=== PATIENT | male | born 1960 | race Caucasian/White ===

== ENCOUNTER 2019-11-05 13:27 | Inpatient (IN) | payer OTHER ==
[2019-11-04] MEDS: PANTOPRAZOLE SOD 40 MG TABEC PO SCH (21:40)
[~2019-11-05] VITALS: Ht 185.4 cm; Wt 74.4 kg
[2019-11-05 14:49] LABS: BASOPHILS # (AUTO) 0.1 (0.0-0.1); BASOPHILS % 0.8 % (0.0-1.0); EOSINOPHILS # (AUTO) 0.1 (0.0-0.4); EOSINOPHILS % 1.6 % (0.0-6.0); HEMATOCRIT 21.7 % (38.2-49.6); LYMPHOCYTES # (AUTO) 0.6 (1.0-3.2); LYMPHOCYTES % 9.6 % (18.0-39.1); MEAN CORPUSCULAR HEMOGLOBIN 36.1 pg (28-32); MEAN CORPUSCULAR VOLUME 120.6 fL (81-99); MONOCYTES # (AUTO) 0.8 (0.2-0.8); MONOCYTES % 13.3 % (4.4-11.3); NEUTROPHILS # (AUTO) 4.6 (2.1-6.9); NEUTROPHILS % 73.7 % (38.7-80.0); PLATELET COUNT 81 x10e3/uL (140-360); RED CELL DISTRIBUTION WIDTH 17.4 % (11.7-14.4)
[2019-11-05 14:51] LABS: HEMOGLOBIN 6.5 g/dL (14.0-18.0)
[2019-11-05] MEDS ORDERED: SODIUM CHLORIDE 0.9% 250ML 250 ML IV ONE (15:15)
[2019-11-05 15:17] LABS: ALANINE AMINOTRANSFERASE 33 IU/L (0-55); ALBUMIN 2.8 g/dL (3.5-5.0); ALBUMIN/GLOBULIN RATIO 0.8 (0.8-2.0); ALKALINE PHOSPHATASE 74 IU/L (40-150); ANION GAP 14.9 mmol/L (8-16); BLOOD UREA NITROGEN 26 mg/dL (7-26); BUN/CREATININE RATIO 24 (6-25); CALCIUM 8.4 mg/dL (8.4-10.2); CARBON DIOXIDE 18 mmol/L (22-29); CHLORIDE 102 mmol/L (98-107); CREATININE, SERUM 1.09 mg/dL (0.72-1.25); EST GLOMERULAR FILTRATION RATE > 60 ML/MIN (60-); GLUCOSE 110 mg/dL (74-118); POTASSIUM 3.9 mmol/L (3.5-5.1); SODIUM 131 mmol/L (136-145)
--- NOTE | 2019-11-05 15:22 | Emergency Department Note ---
History of Present Illnes History of Present Illness Chief Complaint: General Medicine Complaints History of Present Illness This is a 59 year old male . SENT HER EFOR LOW HEMOGLOBIN, DENIES PAIN OR ANY OTHER COMPLAINTS. 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 Any updates have been documented here. (ELISABETH STARK NP) Past Medical History Recent Fever: No Clinical Suspicion of Infectio: No New/Unexplained Change in Ment: No Past Medical History: Asthma, Liver Disease Other Medical History: GOUT Past Surgical History: Back Surgery (ELISABETH STARK NP) Social History Smoking Cessation: Never Smoker Alcohol Use: None Any Illegal Drug Use: No TB Exposure/Symptoms: No Physically hurt or threatened: No (ELISABETH STARK NP) Family History Family history of heart diseas: No (ELISABETH STARK NP) Other Any Pre-Existing Lines (PICC,: No (ELISABETH STARK NP) Review of Systems Review of Systems Constitutional: no symptoms EENTM: no symptoms Cardiovascular: no symptoms Respiratory: no symptoms Gastrointestinal: no symptoms Genitourinary: no symptoms Musculoskeletal: no symptoms Neurological: no symptoms Psychological: no symptoms Endocrine: no symptoms Hematological/Lymphatic: no symptoms Review of other systems All other systems reviewed and negative. (ELISABETH STARK NP) Physical Exam Related Data Allergies: Coded Allergies: No Known Allergies (Unverified , 11/05/19) Triage Vital Signs Vital Signs Date Time Temp Pulse Resp B/P (MAP) Pulse Ox O2 Delivery O2 Flow Rate FiO2 11/05/19 13:58 99.1 79 20 139/70 93 Vital signs reviewed: Yes (ELISABETH STARK NP) Physical Exam CONSTITUTIONAL Constitutional: well-developed HENT HENT: normocephalic, atraumatic HENT L/R: left ext ear normal, right ext ear normal EYES Eyes: conjunctivae normal, EOM normal NECK Neck: ROM normal PULMONARY Pulmonary: effort normal, breath sounds normal CARDIOVASCULAR Cardiovascular: regular rhythm, irregular rhythm GASTROINTESTINAL Abdominal: soft, nontender GENITOURINARY Genitourinary: exam deferred SKIN Skin: warm, dry MUSCULOSKELETAL Musculoskeletal: ROM normal NEUROLOGICAL Neurological: alert, oriented x 3 PSYCHOLOGICAL Psychological: mood/affect normal (ELISABETH STARK NP) Results Laboratory Laboratory Laboratory Tests Test 11/05/19 13:30 White Blood Count 6.24 x10e3/uL (4.8-10.8) Red Blood Count 1.80 x10e6/uL (4.3-5.7) Hemoglobin 6.5 g/dL (14.0-18.0) Hematocrit 21.7 % (38.2-49.6) Mean Corpuscular Volume 120.6 fL (81-99) Mean Corpuscular Hemoglobin 36.1 pg (28-32) Mean Corpuscular Hemoglobin Concent 30.0 g/dL (31-35) Red Cell Distribution Width 17.4 % (11.7-14.4) Platelet Count 81 x10e3/uL (140-360) Neutrophils (%) (Auto) 73.7 % (38.7-80.0) Lymphocytes (%) (Auto) 9.6 % (18.0-39.1) Monocytes (%) (Auto) 13.3 % (4.4-11.3) Eosinophils (%) (Auto) 1.6 % (0.0-6.0) Basophils (%) (Auto) 0.8 % (0.0-1.0) Neutrophils # (Auto) 4.6 (2.1-6.9) Lymphocytes # (Auto) 0.6 (1.0-3.2) Monocytes # (Auto) 0.8 (0.2-0.8) Eosinophils # (Auto) 0.1 (0.0-0.4) Basophils # (Auto) 0.1 (0.0-0.1) Absolute Immature Granulocyte (auto 0.06 x10e3/uL (0-0.1) Sodium Level 131 mmol/L (136-145) Potassium Level 3.9 mmol/L (3.5-5.1) Chloride Level 102 mmol/L (98-107) Carbon Dioxide Level 18 mmol/L (22-29) Anion Gap 14.9 mmol/L (8-16) Blood Urea Nitrogen 26 mg/dL (7-26) Creatinine 1.09 mg/dL (0.72-1.25) Estimat Glomerular Filtration Rate > 60 ML/MIN (60-) BUN/Creatinine Ratio 24 (6-25) Glucose Level 110 mg/dL (74-118) Calcium Level 8.4 mg/dL (8.4-10.2) Total Bilirubin 5.4 mg/dL (0.2-1.2) Aspartate Amino Transf (AST/SGOT) 90 IU/L (5-34) Alanine Aminotransferase (ALT/SGPT) 33 IU/L (0-55) Alkaline Phosphatase 74 IU/L (40-150) Total Protein 6.5 g/dL (6.5-8.1) Albumin 2.8 g/dL (3.5-5.0) Globulin 3.7 g/dL (2.3-3.5) Albumin/Globulin Ratio 0.8 (0.8-2.0) Laboratory Tests Test 11/05/19 13:30 White Blood Count 6.24 x10e3/uL (4.8-10.8) Red Blood Count 1.80 x10e6/uL (4.3-5.7) Hemoglobin 6.5 g/dL (14.0-18.0) Hematocrit 21.7 % (38.2-49.6) Mean Corpuscular Volume 120.6 fL (81-99) Mean Corpuscular Hemoglobin 36.1 pg (28-32) Mean Corpuscular Hemoglobin Concent 30.0 g/dL (31-35) Red Cell Distribution Width 17.4 % (11.7-14.4) Platelet Count 81 x10e3/uL (140-360) Neutrophils (%) (Auto) 73.7 % (38.7-80.0) Lymphocytes (%) (Auto) 9.6 % (18.0-39.1) Monocytes (%) (Auto) 13.3 % (4.4-11.3) Eosinophils (%) (Auto) 1.6 % (0.0-6.0) Basophils (%) (Auto) 0.8 % (0.0-1.0) Neutrophils # (Auto) 4.6 (2.1-6.9) Lymphocytes # (Auto) 0.6 (1.0-3.2) Monocytes # (Auto) 0.8 (0.2-0.8) Eosinophils # (Auto) 0.1 (0.0-0.4) Basophils # (Auto) 0.1 (0.0-0.1) Absolute Immature Granulocyte (auto 0.06 x10e3/uL (0-0.1) Lab results reviewed: Yes (ELISABETH STARK NP) Critical Care Time Subsequent provider I assumed direction of critical care for this patient from another provider of my specialty. (ELISABETH STARK NP) Assessment & Plan Assessment & Plan Problems: (1) Anemia Assessment & Plan Dr Moscoso in eval pt status - discussed lab results plan of care and need for admit Dr Moscoso spoke w/ Dr Scott will admit (ELISABETH STARK NP) Depart Disposition: ADMITTED Last Vital Signs Date Time Temp Pulse Resp B/P (MAP) Pulse Ox O2 Delivery O2 Flow Rate FiO2 11/05/19 13:58 99.1 79 20 139/70 93 (ELISABETH STARK NP) Attestation Provider Attestation The patient's history, exam findings, diagnostics, and a summary of any interventions or procedures was reviewed in detail with our RENITA. I personally interviewed and examined the patient, and I have reviewed and agree with the HPI andexam. My personal exam shows age appropriate male, dry mucosa and pale skin. Pt with symptomatic anemia.I confirm the diagnosis as documented by the RENITA. I have reviewed and agree with the care plan articulated in the disposition section. (CARLOS MOSCOSO DO) ELISABETH STAKR NP November 05, 2019 14:10 CARLOS MOSCOSO DO November 05, 2019 15:22
[2019-11-05 17:58] VITALS: BP 134/56
[2019-11-05 18:43] VITALS: BP 134/56
[2019-11-05 18:44] VITALS: BP 134/56
[2019-11-05 18:45] VITALS: BP 134/56
[2019-11-05] MEDS ORDERED: HYDRALAZINE HCL 20 MG/ML VIAL IV PRN (19:00)
[2019-11-05] MEDS ORDERED: ACETAMINOPHEN 325 MG TAB PO PRN (19:00)
[2019-11-05] MEDS ORDERED: ONDANSETRON HCL INJ 2MG/ML 2ML 2 MG/ML VIAL IV PRN (19:00)
--- NOTE | 2019-11-05 19:30 | NUR ---
rECEIVED PT IN BED AWAKE A/O X4. NO C/O NO S/SX OF DISTRESS NOTED. PT ANTICIPATE BLOOD TRANSFUSION THISNSHIFT. BED IN LOW POSITION, CALL LIGHT AND PERSONAL ITEMS WITHIN REACH. WILL CONT TO MON
[2019-11-05 20:07] VITALS: BP 137/64
[2019-11-05 21:00] VITALS: BP 137/64
--- NOTE | 2019-11-05 22:09 | NUR ---
PT VSS. BLOOD TO START PT VERBALIZE S/SX TO REPORT DURING TRANSFUSION. NO S/SX DISTRESS NOTED
[2019-11-06] VITALS (11 sets, daily range): BP systolic 116–143; BP diastolic 51–78
--- NOTE | 2019-11-06 00:31 | History and Physical ---
PRIMARY CARE PHYSICIAN: Dr. Mitul Salinas. CHIEF COMPLAINT: Tired. HISTORY OF PRESENT ILLNESS: Mr. Lemus is a 59-year-old male, who had blood drawn on Friday and received a call today that his hemoglobin was low and to come to the emergency department. He states he has been tired for the past few days, but has not had any bleeding from anywhere. He denies any recent sick contacts or travel. PAST MEDICAL HISTORY: Asthma, liver cirrhosis, gout, seasonal allergies. He had a colonoscopy about 2 years ago. PAST SURGICAL HISTORY: Tonsillectomy, L4-L5 laminectomy and subsequent laminectomy and diskectomy. He reports that he had paracentesis once. He does not have serial paracentesis though. FAMILY HISTORY: Mother has had bronchitis. SOCIAL HISTORY: Denies history of tobacco or illicit drugs. He states he drinks 2 vodka and cranberry juice every other day. ALLERGIES: NO KNOWN ALLERGIES. MEDICATIONS: Reviewed. REVIEW OF SYSTEMS: CONSTITUTIONAL: Denies any significant weight loss or weight gain. No fever. He has had chills off and on for the last 9 months. EYES, EARS, NOSE, AND THROAT: He has had blurry vision for the past 2 years. He wears hearing aids bilaterally. RESPIRATORY: Denies shortness of breath, cough, or phlegm. GENITOURINARY: No complaints of difficulty urinating. PSYCHIATRIC: He takes trazodone for insomnia. CARDIOVASCULAR: No chest pain or palpitations. GASTROINTESTINAL: Diarrhea once daily for the past week. MUSCULOSKELETAL: Gout began about 9 months ago. NEUROLOGIC: No headache or dizziness. ENDOCRINE: No history of diabetes or hypothyroidism. HEMATOLOGIC: Tired all the time. No bleeding. PHYSICAL EXAMINATION: VITAL SIGNS: Height 6 feet 1 inch. Weight 181 pounds, BMI 23.87. Temperature 98.2, heart rate 85, respirations 18, blood pressure 137/64, saturation 96% on room air. GENERAL: Lying supine in bed, awake, alert. LUNGS: Clear to auscultation. Respirations even and unlabored. HEENT: EOMI. NECK: Supple. CARDIOVASCULAR: Regular rate and rhythm. No murmur. He has a blood transfusion infusing at 100 mL an hour into a peripheral IV. ABDOMEN: Bowel sounds positive. Soft, nontender, nondistended. No guarding. EXTREMITIES: No pitting edema. No clubbing, cyanosis, or marked swelling. NEUROLOGICAL: GCS 15. Nonfocal. LABORATORY DATA: WBC 6.24, hemoglobin 6.5, hematocrit 21.7, and platelets 81. Sodium 131, potassium 3.9, chloride 102, CO2 of 18, BUN 26, creatinine 1.09, estimated GFR greater than 60, glucose 110, calcium 8.4, total bilirubin 5.4, AST 90, ALT 33, alkaline phosphatase 74, total protein 6.5, albumin 2.8. Coronavirus by PCR collected today and pending. ASSESSMENT AND PLAN: 1. Anemia of unknown etiology, 3 units of PRBCs have been ordered. Follow up labs to check H and H post transfusion. T-max 99.1, premedicate with Tylenol and Benadryl p.r.n. 2. Liver cirrhosis with thrombocytopenia. Total bilirubin 5.4, AST 90. Mild abdominal distention, possible mild ascites. Encourage alcohol cessation. Consider GI consult if condition worsens. 3. Diarrhea. We will start Questran and monitor. Check Clostridium difficile toxin for colitis. 4. Acute hyponatremia. Sodium 131. Monitor level. 5. Prophylaxis, Protonix. H and P time spent 60 minutes. Billing code [id number]. Dictated by Gage Avila NP MD JANI BreenP/MODL /[id number]
[2019-11-06] MEDS ORDERED: SODIUM CHLORIDE 0.9% 250ML 250 ML ONE ×2 (04:26→22:43)
[2019-11-06] MEDS: PANTOPRAZOLE SOD 40 MG TABEC PO SCH (08:17)
[2019-11-06] MEDS ORDERED: CHOLESTYRAMINE 4 GM PACKET PO SCH (09:00)
[2019-11-06] MEDS ORDERED: ASCORBIC ACID500 M2 PO (10:34)
[2019-11-06] MEDS ORDERED: PANTOPRAZOLE SO40 MG PO (10:34)
[2019-11-06] MEDS ORDERED: MELOXICAM7.5 MG PO (10:50)
[2019-11-06] MEDS ORDERED: FERROUS SULFAT325 MG PO (10:50)
[2019-11-06] MEDS ORDERED: SPIRONOLACTONE25 MG PO (10:52)
[2019-11-06] MEDS ORDERED: ALLOPURINOL100 MG PO (10:52)
[2019-11-06] MEDS ORDERED: DOCUSATE SODIU100 MG PO (10:52)
[2019-11-06] MEDS ORDERED: PROPRANOLOL HCL10 MG PO (10:52)
[2019-11-06 11:35] LABS: EOSINOPHILS # (AUTO) 0.1 (0.0-0.4); EOSINOPHILS % 2.3 % (0.0-6.0); HEMATOCRIT 23.4 % (38.2-49.6); HEMOGLOBIN 7.1 g/dL (14.0-18.0); LYMPHOCYTES # (AUTO) 0.6 (1.0-3.2); LYMPHOCYTES % 15.1 % (18.0-39.1); MEAN CORPUSCULAR HEMOGLOBIN 34.8 pg (28-32); MEAN CORPUSCULAR HGB CONC 30.3 g/dL (31-35); MEAN CORPUSCULAR VOLUME 114.7 fL (81-99); MONOCYTES # (AUTO) 0.6 (0.2-0.8); MONOCYTES % 14.3 % (4.4-11.3); NEUTROPHILS # (AUTO) 2.6 (2.1-6.9); NEUTROPHILS % 66.5 % (38.7-80.0); PLATELET COUNT 61 x10e3/uL (140-360); RED BLOOD COUNT 2.04 x10e6/uL (4.3-5.7); RED CELL DISTRIBUTION WIDTH 22.5 % (11.7-14.4)
[2019-11-06 12:16] LABS: FERRITIN 32.91 ng/mL (21.81-274.66)
[2019-11-06 12:31] LABS: ALANINE AMINOTRANSFERASE 27 IU/L (0-55); ALBUMIN 2.4 g/dL (3.5-5.0); ALBUMIN/GLOBULIN RATIO 0.8 (0.8-2.0); ALKALINE PHOSPHATASE 59 IU/L (40-150); ANION GAP 10.7 mmol/L (8-16); BLOOD UREA NITROGEN 22 mg/dL (7-26); BUN/CREATININE RATIO 22 (6-25); CALCIUM 8.4 mg/dL (8.4-10.2); CARBON DIOXIDE 22 mmol/L (22-29); CHLORIDE 106 mmol/L (98-107); CREATININE, SERUM 1.01 mg/dL (0.72-1.25); EST GLOMERULAR FILTRATION RATE > 60 ML/MIN (60-); GLUCOSE 107 mg/dL (74-118); POTASSIUM 3.7 mmol/L (3.5-5.1); SODIUM 135 mmol/L (136-145)
[2019-11-06 12:57] LABS: RBC MORPHOLOGY COMMENT ABNORMAL
[2019-11-06] MEDS ORDERED: CHOLESTYRAMINE 4 GM PACKET PO PRN (15:00)
[2019-11-06 16:02] LABS: EOSINOPHILS # (AUTO) 0.1 (0.0-0.4); EOSINOPHILS % 2.6 % (0.0-6.0); HEMATOCRIT 22.3 % (38.2-49.6); LYMPHOCYTES # (AUTO) 0.5 (1.0-3.2); MEAN CORPUSCULAR HEMOGLOBIN 34.3 pg (28-32); MEAN CORPUSCULAR HGB CONC 30.5 g/dL (31-35); MEAN CORPUSCULAR VOLUME 112.6 fL (81-99); MONOCYTES # (AUTO) 0.6 (0.2-0.8); MONOCYTES % 15.8 % (4.4-11.3); NEUTROPHILS # (AUTO) 2.6 (2.1-6.9); NEUTROPHILS % 66.1 % (38.7-80.0); PLATELET COUNT 68 x10e3/uL (140-360); RED BLOOD COUNT 1.98 x10e6/uL (4.3-5.7); RED CELL DISTRIBUTION WIDTH 22.4 % (11.7-14.4)
[2019-11-06 16:15] LABS: HEMOGLOBIN 6.8 g/dL (14.0-18.0)
[2019-11-06] MEDS: VANCOMYCIN 250MG/5ML ORAL SOLN PO SCH ×2 (16:19→23:51)
[2019-11-06] MEDS: ALLOPURINOL 100 MG TAB PO SCH (16:19)
[2019-11-06] MEDS: PROPRANOLOL HCL 10 MG TAB PO SCH (16:32)
[2019-11-06] MEDS ORDERED: SODIUM CHLORIDE 0.9% 250ML 250 ML IV NR (17:15)
--- NOTE | 2019-11-06 19:34 | NUR ---
PATIENT AWAKE ALERT ORIENTED x 3, GAIT STEADY, REPORT GIVEN VERBALLY FROM CARLOS WHITFIELD PATIENT REMAINS ON SPECIAL CONTACT PRECAUTION, (+)C-DIFF, HBG 6.8 CURRENTLY, PENDING 2 UNITS PRBC, PER CARLOS TRAORE BLOOD IS STILL PENDING FROM LAB, PATIENT MADE AWARE, PER CARLOS TRAORE CONSENT IN CHART, TYPE AND SCREEN COMPLETED, CALL LIGHT WITHIN REACH
--- NOTE | 2019-11-06 22:45 | NUR ---
FIRST UNIT OF BLOOD OF OUT TWO STARTED, RFA IV SITE PATENT FLUSHES WELL, NO INFILTRATION NOTED, VITALS TAKEN PRIOR TO STARTING INFUSION, HYPOTENSION NOTED, AFEBRILE
--- NOTE | 2019-11-06 23:45 | NUR ---
PATIENT TOLERATING INFUSION WELL, NO A/R NOTED, IV SITE REMAINS INTACT, VITALS TAKEN PER PROTOCOL
[2019-11-07] VITALS (12 sets, daily range): BP systolic 107–138; BP diastolic 55–112
--- NOTE | 2019-11-07 01:45 | NUR ---
FIRST UNIT OF PRBC INFUSED W/O DIFFICULTY, W/O A/R, PT AWAKE ALERT,
--- NOTE | 2019-11-07 02:05 | NUR ---
SECOND UNIT OF PRBC PICKUP FROM LAB, VERIFIED WITH TWO RN'S PER PROCTOL, PATIENT PREVITALS STABLE AFEBRILE, NO C/O S/SX OF REACTION, SECOND UNIT OF PRBC STARTED@0200, PATIENT AOX3, VSS, AFEBRILE, SKIN WARM DRY, IV SITE LFA PATENT, CONT TO FLUSH WELL NO S/SX OF INFILTRATION NOTED
--- NOTE | 2019-11-07 02:40 | NUR ---
MD CHILD ROUNDING ON PATIENT, EDUCATED PT ON CIRRHOSIS, ALCOHOL CESSATION, BLOOD INFUSION CONTINUES, TOLERATING WELL, NO A/R NOTED, DENIES SOB, ITCHING, SKIN WARM DRY CALL LIGHT WITHIN REACH
[2019-11-07] MEDS: VANCOMYCIN 250MG/5ML ORAL SOLN PO SCH ×4 (04:46→23:13)
--- NOTE | 2019-11-07 05:14 | NUR ---
ATTEMPTED TO CALL REPORT TO CARLOS CHEN, RN GIVING PATIENT CARE WILL CALL BACK IN 10 MINUTES, PT REMAINS ON SPECIAL CONTACT PRECAUTIONS ISOLATION PENDING TRANFER OFF UNIT TO MS2
--- NOTE | 2019-11-07 05:31 | NUR ---
REPORT VERBALLY GIVEN VIA TELEPHONE TO RN ELISE PATIENT WILL BE TRANSPORTED VIA WHEELCHAIR TO MS2
[2019-11-07 06:10] LABS: BASOPHILS % 0.9 % (0.0-1.0); EOSINOPHILS # (AUTO) 0.1 (0.0-0.4); EOSINOPHILS % 3.1 % (0.0-6.0); HEMOGLOBIN 8.5 g/dL (14.0-18.0); LYMPHOCYTES # (AUTO) 0.7 (1.0-3.2); LYMPHOCYTES % 15.8 % (18.0-39.1); MEAN CORPUSCULAR HEMOGLOBIN 32.8 pg (28-32); MEAN CORPUSCULAR HGB CONC 30.4 g/dL (31-35); MEAN CORPUSCULAR VOLUME 108.1 fL (81-99); MONOCYTES # (AUTO) 0.6 (0.2-0.8); MONOCYTES % 13.2 % (4.4-11.3); NEUTROPHILS # (AUTO) 2.8 (2.1-6.9); NEUTROPHILS % 66.8 % (38.7-80.0); PLATELET COUNT 68 x10e3/uL (140-360); RED BLOOD COUNT 2.59 x10e6/uL (4.3-5.7); RED CELL DISTRIBUTION WIDTH 24.9 % (11.7-14.4)
[2019-11-07 06:37] LABS: ALANINE AMINOTRANSFERASE 25 IU/L (0-55); ALBUMIN 2.5 g/dL (3.5-5.0); ALBUMIN/GLOBULIN RATIO 0.8 (0.8-2.0); ALKALINE PHOSPHATASE 62 IU/L (40-150); BLOOD UREA NITROGEN 18 mg/dL (7-26); BUN/CREATININE RATIO 20 (6-25); CALCIUM 8.6 mg/dL (8.4-10.2); CARBON DIOXIDE 21 mmol/L (22-29); CHLORIDE 110 mmol/L (98-107); CREATININE, SERUM 0.91 mg/dL (0.72-1.25); EST GLOMERULAR FILTRATION RATE > 60 ML/MIN (60-); GLUCOSE 103 mg/dL (74-118); MAGNESIUM 2.3 MG/DL (1.3-2.1); SODIUM 139 mmol/L (136-145)
--- NOTE | 2019-11-07 07:00 | NUR ---
Received bedside shift report from off going nurse. Patient in stable condition, no s/s of distress noted. no pain voiced. Telemetry applied and working. Bed in lowest position and working. Call light within reach.
[2019-11-07 07:34] LABS: INR 1.25; PROTHROMBIN TIME 16.5 seconds (11.9-14.5)
[2019-11-07 08:34] LABS: LYMPHOCYTES % (MANUAL) 54 % (19-48); MONOCYTES % (MANUAL) 46 % (3.4-9.0); PLATELET ESTIMATE MODERATELY DECREASED; PLATELET MORPHOLOGY COMMENT NORMAL
--- NOTE | 2019-11-07 08:46 | NUR ---
DAY 2 OBSERVATION. DISCUSSED PT WITH THEO SMITH NP. SHE GAVE ORDER TO CHANGE TO INPATIENT STATUS.
[2019-11-07] MEDS: SPIRONOLACTONE 25 MG TAB PO SCH (08:54)
[2019-11-07] MEDS: PANTOPRAZOLE SOD 40 MG TABEC PO SCH (08:54)
[2019-11-07] MEDS: ALLOPURINOL 100 MG TAB PO SCH ×2 (08:55→16:49)
[2019-11-07] MEDS: PROPRANOLOL HCL 10 MG TAB PO SCH ×2 (08:55→16:49)
[2019-11-07] MEDS ORDERED: SODIUM CHLORIDE 0.9% 250ML 250 ML ONE ×2 (09:50→23:12)
[2019-11-07] MEDS: IRON SUCROSE 100 MG in SODIUM CHLORIDE 0.9% 100 ML 100 ML IV SCH (09:53)
--- NOTE | 2019-11-07 13:25 | Diagnostic Imaging Report ---
EXAM: US ABDOMEN COMPLETE DATE: 11/07/2019 11:54 AM INDICATION: HCC screening. COMPARISON: None TECHNIQUE: Transverse and longitudinal arevalo scale and color doppler sonographic images of the upper abdomen were obtained. FINDINGS: Exam is somewhat limited by body habitus and bowel gas. LIVER 15.2 cm in the right midclavicular line. Increased echogenicity of the liver. Mildly nodular contour. No evidence of mass. SPLEEN 14.5 cm in maximum diameter. Normal echogenicity, no masses. GALLBLADDER No gallbladder wall thickening, distension, stone, or pericholecystic fluid. Contracted. Negative reported sonographic Ruiz's sign. BILE DUCTS No intra nor extra-hepatic biliary dilation. Common bile duct measures 0.6 cm PANCREAS: Not visualized due to overlying bowel gas. RIGHT KIDNEY: 10.6 cm Echogenicity: Normal Collecting System: No hydronephrosis Stones: None Cyst/Mass: None LEFT KIDNEY: 10.0 cm Echogenicity: Normal Collecting System: No hydronephrosis Stones: None Cyst/Mass: None VESSELS: Aorta: Visualized portions are within normal size limits Inferior Vena Cava: Visualized portions are normal Main Portal Vein: 1.0 cm, normal size with hepatopetal flow. FREE FLUID: Trace ascites in the right upper quadrant. IMPRESSION: Exam is somewhat limited by body habitus and bowel gas. Liver measures at the upper limits of normal. Hepatic steatosis. Mildly nodular contour may represent early cirrhosis. Mild splenomegaly. Trace ascites in the right upper quadrant. Signed by: Dr. Jr Pratt MD on 11/07/2019 1:22 PM
[2019-11-07] MEDS ORDERED: CITRATE OF MAGNESIA 300ML BOTTLE PO NR (13:30)
[2019-11-07] MEDS ORDERED: CITRATE OF MAGNESIA 300ML BOTTLE PO ONE (16:00)
--- NOTE | 2019-11-07 18:55 | NUR ---
Completed bedside shift report and rounding. Patient in stable condition, no s/s of distress noted. No pain voiced. Telemetry applied and working. Bed in lowest position and locked. Call light within reach.
[2019-11-07] MEDS ORDERED: ONDANSETRON HCL 4 MG ORAL DISINTEGRATING TAB PO PRN (19:00)
[2019-11-07] MEDS ORDERED: BISACODYL 5 MG TAB EC PO ONE ×3 (22:30→23:30)
[2019-11-07] MEDS ORDERED: PHYTONADIONE 10 MG/ML AMP IV ONE (23:00)
[2019-11-07] MEDS ORDERED: SODIUM CHLORIDE 0.9% 100 ML ONE (23:12)
[2019-11-08] VITALS (7 sets, daily range): BP systolic 107–129; BP diastolic 50–70
[2019-11-08 05:33] LABS: INR 1.22; PROTHROMBIN TIME 16.2 seconds (11.9-14.5)
[2019-11-08 05:44] LABS: BASOPHILS # (AUTO) 0.1 (0.0-0.1); BASOPHILS % 0.8 % (0.0-1.0); EOSINOPHILS # (AUTO) 0.2 (0.0-0.4); EOSINOPHILS % 2.5 % (0.0-6.0); HEMATOCRIT 31.4 % (38.2-49.6); HEMOGLOBIN 9.5 g/dL (14.0-18.0); LYMPHOCYTES # (AUTO) 0.7 (1.0-3.2); LYMPHOCYTES % 11.1 % (18.0-39.1); MEAN CORPUSCULAR HEMOGLOBIN 33.6 pg (28-32); MEAN CORPUSCULAR HGB CONC 30.3 g/dL (31-35); MONOCYTES # (AUTO) 0.9 (0.2-0.8); MONOCYTES % 13.6 % (4.4-11.3); NEUTROPHILS # (AUTO) 4.6 (2.1-6.9); NEUTROPHILS % 71.7 % (38.7-80.0); PLATELET COUNT 79 x10e3/uL (140-360); RED BLOOD COUNT 2.83 x10e6/uL (4.3-5.7); RED CELL DISTRIBUTION WIDTH 25.7 % (11.7-14.4)
[2019-11-08 05:48] LABS: ALANINE AMINOTRANSFERASE 29 IU/L (0-55); ALBUMIN 2.8 g/dL (3.5-5.0); ALBUMIN/GLOBULIN RATIO 0.8 (0.8-2.0); ALKALINE PHOSPHATASE 61 IU/L (40-150); ANION GAP 11.6 mmol/L (8-16); BLOOD UREA NITROGEN 13 mg/dL (7-26); BUN/CREATININE RATIO 14 (6-25); CALCIUM 8.7 mg/dL (8.4-10.2); CARBON DIOXIDE 18 mmol/L (22-29); CHLORIDE 115 mmol/L (98-107); CREATININE, SERUM 0.93 mg/dL (0.72-1.25); EST GLOMERULAR FILTRATION RATE > 60 ML/MIN (60-); GLUCOSE 105 mg/dL (74-118); MAGNESIUM 3.2 MG/DL (1.3-2.1); POTASSIUM 4.6 mmol/L (3.5-5.1); SODIUM 140 mmol/L (136-145)
[2019-11-08] MEDS: VANCOMYCIN 250MG/5ML ORAL SOLN PO SCH ×3 (06:14→17:45)
[2019-11-08 07:32] LABS: POLYCHROMASIA MODERATE
[2019-11-08 07:33] LABS: ANISOCYTOSIS MODERATE; PLATELET ESTIMATE MODERATELY DECREASED; RBC MORPHOLOGY COMMENT ABNORMAL
[2019-11-08 07:34] LABS: PLATELET MORPHOLOGY COMMENT NORMAL
[2019-11-08] MEDS ORDERED: VANCOCIN HCL250 MG PO (09:00)
[2019-11-08] MEDS: ALLOPURINOL 100 MG TAB PO SCH ×2 (09:24→17:45)
[2019-11-08] MEDS: PANTOPRAZOLE SOD 40 MG TABEC PO SCH (09:25)
[2019-11-08] MEDS: PROPRANOLOL HCL 10 MG TAB PO SCH ×2 (09:25→17:45)
[2019-11-08] MEDS: SPIRONOLACTONE 25 MG TAB PO SCH (09:25)
[2019-11-08] MEDS ORDERED: PHYTONADIONE 10 MG/ML AMP SQ ONE (09:30)
[2019-11-08] MEDS: IRON SUCROSE 100 MG in SODIUM CHLORIDE 0.9% 100 ML 100 ML IV SCH (10:16)
--- NOTE | 2019-11-08 16:38 | NUR ---
Nutrition Screen Note RD Recommendation for Physician: - As feasible, ADAT to goal of GI Soft Plan of Care: RD following, monitoring for tolerance and adequacy Nutrition reason for involvement: Nutrition Risk Trigger- shellfish allergy Primary Diagnose(s): anemia, C. diff PMH: liver cirrhosis, gout, laminectomy, diskectomy Ht: 73 in Wt: 165.25 lb BMI: 21.8 kg/m2 IBW: [address] Assessment: (11/07) 59 YOM admitted for anemia found to have C diff on admit. Pt discussed during am MDR, plan for colonoscopy and EGD today. Pt evaluated per recorded food allergy to shellfish containing products in [employer], no documented food allergies in [facility]. Pt out of room for testing/procedures at time of visits. No documented poor intake or wt loss IMPLEMENTATION ADVISOR. Chart reviewed. Labs and meds reviewed. Will continue to monitor. Current Diet: NPO Malnutrition Evaluation (date of eval) The patient does not meet criteria for a specified degree of malnutrition at this time. Will re-evaluate at follow-up as appropriate. ROSALINE, pt out of room at time of attempted visits. Diet Education Needs Assessment: Diet education not indicated. Diet tolerance: pending, currently NPO Nutrition Care Level: low Signed: Isaura Cuadra RD, LD, [facility]
[2019-11-08] MEDS ORDERED: GLUCAGON FOR INJ 1 MG VIAL ONE (17:18)
[2019-11-08] MEDS ORDERED: LIDOCAINE HCL 2% LOCAL INJ 5 ML SDV VIAL INJ ONE (17:18)
[2019-11-08] MEDS ORDERED: PROPOFOL IV EMULSION 10 MG/ML 20 ML VIAL ONE (17:18)
[2019-11-08] MEDS ORDERED: MIDAZOLAM HCL 2 MG/2 ML VIAL ONE (17:40)
[2019-11-08] MEDS ORDERED: FENTANYL CITRATE/PF 100MCG/2 ML INJ ONE (17:40)
--- NOTE | 2019-11-08 19:30 | NUR ---
Received pt in bed awake, a/o x4 no s/sx of acute distress noted. Bed in low position and call light/personal items within reach.
[2019-11-09] VITALS: BP 101/54
[2019-11-09] MEDS: VANCOMYCIN 250MG/5ML ORAL SOLN PO SCH (00:43)
[2019-11-09 04:00] VITALS: BP 106/54
--- NOTE | 2019-11-09 04:07 | Operative Report ---
DATE OF PROCEDURE: 11/08/2019 SURGEON: Rommel Valero MD PROCEDURES: Esophagogastroduodenoscopy with fulguration of gastric antral vascular ectasia and colonoscopy with polypectomy and biopsies. INDICATIONS FOR ESOPHAGOGASTRODUODENOSCOPY: History of melena. INDICATIONS FOR COLONOSCOPY: Anemia and occult blood in stools. MEDICATIONS: The patient was done under MAC. Please see anesthesiologist's note. PROCEDURE IN DETAIL: With the patient in left lateral decubitus position, a flexible fiberoptic Olympus gastroscope was introduced into the esophagus under direct visualization without any difficulty. Grade 2 esophageal varices were noted without active bleeding or stigmata of recent hemorrhage. The scope was then advanced with ease into the stomach. Mucosa overlying the antrum and the body revealed changes compatible with portal hypertensive gastropathy. Numerous ectatic vessels were noted in the antrum compatible with gastric antral vascular ectasia. The pylorus appeared to be of normal contour and shape, was intubated with ease, and the scope was advanced all the way to the second portion of the duodenum. The scope was then withdrawn slowly. Mucosa overlying the proximal second portion and the duodenal bulb revealed some patchy mild inflammatory changes, but otherwise was grossly unremarkable. The scope was then withdrawn back into the stomach and retroflexed, and mucosa overlying the fundus and the cardia did not reveal any fundal or cardiac varices. The scope was then straightened out and the gastric antral vascular ectasia was fulgurated with the APC probe. The scope was subsequently withdrawn. The patient tolerated the procedure well. IMPRESSION: 1. Grade 2 esophageal varices. 2. Portal hypertensive gastropathy. 3. 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 PLAN: Follow H and H. Initiate Protonix 40 mg IV b.i.d. The patient was then turned around after adequate lubrication of the anal canal. The flexible fiberoptic Olympus colonoscope was inserted into the rectum with ease and advanced all the way to the cecum. There was a significant amount of melena noted in the colon, but visualization was fair. The scope was then withdrawn slowly. Whatever was visualized, the mucosa overlying the cecum grossly appeared to be within normal limits. A semi-circumferential mass was noted in the [id number] ascending colon. This was biopsied and tattooed. Numerous polyps were also noted in the ascending and the proximal transverse colon. Those were not removed as the patient will need a right hemicolectomy. Five polyps were removed per hot snare polypectomy from the descending colon, two polyps were removed per hot snare polypectomy from the sigmoid colon, and one polyp was removed per hot snare polypectomy from the rectum. The scope was then retroflexed into the distal rectum and small internal hemorrhoids were noted, none of which was actively bleeding. The scope was then straightened out. It was subsequently withdrawn. The patient tolerated the procedure well. IMPRESSION: 1. Ascending colon semi-circumferential mass, biopsied, tattooed. 2. Descending colon polyps x5, hot snared. 3. Sigmoid colon polyps x2, hot snared. 4. Rectal polyp x1, hot snared. 5. Internal hemorrhoids, none actively bleeding. 6. Suboptimal prep. PLAN: Follow up histology. The patient will need a general surgical consultation. Rommel Valero MD [facility] [place] /[id number] cc: Johny Scott MD
[2019-11-09 05:24] LABS: BASOPHILS % 0.9 % (0.0-1.0); EOSINOPHILS # (AUTO) 0.1 (0.0-0.4); EOSINOPHILS % 2.7 % (0.0-6.0); HEMATOCRIT 28.7 % (38.2-49.6); HEMOGLOBIN 8.4 g/dL (14.0-18.0); LYMPHOCYTES # (AUTO) 0.7 (1.0-3.2); LYMPHOCYTES % 15.6 % (18.0-39.1); MEAN CORPUSCULAR HEMOGLOBIN 33.2 pg (28-32); MEAN CORPUSCULAR HGB CONC 29.3 g/dL (31-35); MEAN CORPUSCULAR VOLUME 113.4 fL (81-99); MONOCYTES # (AUTO) 0.6 (0.2-0.8); MONOCYTES % 13.4 % (4.4-11.3); NEUTROPHILS % 67.2 % (38.7-80.0); PLATELET COUNT 71 x10e3/uL (140-360); RED BLOOD COUNT 2.53 x10e6/uL (4.3-5.7); RED CELL DISTRIBUTION WIDTH 24.6 % (11.7-14.4)
[2019-11-09 05:58] LABS: ANION GAP 9.3 mmol/L (8-16); BLOOD UREA NITROGEN 12 mg/dL (7-26); BUN/CREATININE RATIO 13 (6-25); CALCIUM 8.3 mg/dL (8.4-10.2); CARBON DIOXIDE 20 mmol/L (22-29); CHLORIDE 115 mmol/L (98-107); CREATININE, SERUM 0.93 mg/dL (0.72-1.25); EST GLOMERULAR FILTRATION RATE > 60 ML/MIN (60-); GLUCOSE 88 mg/dL (74-118); POTASSIUM 4.3 mmol/L (3.5-5.1); SODIUM 140 mmol/L (136-145)
[2019-11-09 06:59] LABS: PLATELET MORPHOLOGY COMMENT NORMAL; POLYCHROMASIA FEW; RBC MORPHOLOGY COMMENT ABNORMAL
[2019-11-09 07:00] LABS: ANISOCYTOSIS MODERATE; HYPOCHROMASIA SLIGHT
[2019-11-09 07:01] LABS: PLATELET ESTIMATE MODERATELY DECREASED
[2019-11-09 07:33] VITALS: BP 114/62
[2019-11-09 07:43] VITALS: BP 114/62
[2019-11-09] MEDS: PANTOPRAZOLE SOD 40 MG TABEC PO SCH (08:23)
[2019-11-09] MEDS: SPIRONOLACTONE 25 MG TAB PO SCH (08:23)
[2019-11-09] MEDS: ALLOPURINOL 100 MG TAB PO SCH (08:24)
[2019-11-09] MEDS: PROPRANOLOL HCL 10 MG TAB PO SCH (08:24)
[2019-11-09] MEDS: IRON SUCROSE 100 MG in SODIUM CHLORIDE 0.9% 100 ML 100 ML IV SCH (08:57)
--- NOTE | 2019-11-09 10:50 | NUR ---
Patient discharged home- Patient off the unit @ 1045 via wheelchair accompanied by RN to the lobby. Patient in stable condition, no s/s of distress noted. No pain voiced. IV access removed with tip intact. All personal items taken with the patient . Discharge teaching and instruction given to the patient. Verbalized understanding by patient.
--- NOTE | 2019-11-09 12:30 | Consultation ---
DATE OF CONSULTATION: 11/09/2019 CHIEF COMPLAINT: Anemia. HISTORY OF PRESENT ILLNESS: The patient is a 59-year-old male admitted with weakness and found to be anemic with history of diarrheal stool and melenic stool for one week. He was found to have C diff toxin essay positive and colonoscopy was performed per GI, revealing a partially circumferential mass in the right colon. PAST MEDICAL HISTORY: Positive for cirrhosis of liver secondary to alcohol abuse, asthma, and gout. PAST SURGICAL HISTORY: Positive for lumbar laminectomy and diskectomy, one paracentesis done. ALLERGIES: THE PATIENT HAD NO DRUG ALLERGIES. SOCIAL HABITS: As mentioned, he drinks chronically vodka. REVIEW OF SYSTEMS: No chest pain, shortness of breath, cough, or fevers. PHYSICAL EXAMINATION: VITAL SIGNS: Stable. He is afebrile. He is awake and alert, in no apparent distress. HEENT: Sclerae is nonicteric. NECK: Supple. LUNGS: Clear. HEART: Regular rate and rhythm. ABDOMEN: Mildly distended. No guarding. There is an umbilical hernia, reducible. LABORATORY DATA: The patient's white cell count is 5, hemoglobin of 8.4, and platelet count is 71. Creatinine of 0.9, bilirubin of 5.9 with alkaline phosphatase of 61, INR of 1.2 with PT of 16, abdominal ultrasound show trace ascites with early cirrhosis findings. ASSESSMENT: Right colonic tumor presenting as anemia in patient with cirrhotic liver and ascites. PLAN: The patient is being treated for C diff colitis. Plan, complete treatment for C diff colitis. Follow up as outpatient and plan for right colectomy with all attendant risks discussed. William Wong MD DNL/MODL /[id number]
--- NOTE | 2019-11-12 10:17 | Discharge Summary ---
ADMISSION DIAGNOSES: Anemia of unknown source, liver cirrhosis with thrombocytopenia, diarrhea, acute hyponatremia. DISCHARGE DIAGNOSES: Anemia of unknown source, liver cirrhosis with thrombocytopenia, diarrhea, acute hyponatremia, Clostridium difficile colitis present on admission, acute blood loss anemia secondary to gastrointestinal bleed, colon mass. HISTORY: Asthma, liver cirrhosis, gout, seasonal allergies. SURGICAL HISTORY: Tonsillectomy, L4-L5 laminectomy. FAMILY HISTORY: Noncontributory. SOCIAL HISTORY: The patient admits to drinking daily vodka. HOSPITAL COURSE: A 59-year-old male, had blood drawn on Friday and received a call today that his hemoglobin was low and he needed to go to the ER. He says he has been tired for the last few days, but denies any bleeding. Upon further investigation, the patient does admit to black stool. On admission, the patient's hemoglobin was 6.5. He was transfused 2 units of PRBCs and the hemoglobin only went up to 7.1, so 2 additional PRBCs were ordered and GI was consulted. The patient's stool came back positive for blood and positive for C diff. He was started on vancomycin p.o. and was taken for EGD and colonoscopy. EGD showed grade 2 esophageal varices and colonoscopy showed an ascending colon mass, descending polyp, sigmoid colon polyp, rectal polyp, and internal hemorrhoids. After the EGD, Surgery was consulted, but the patient is refusing surgery and says he needs to return home immediately. He was advised to follow up with Dr. Wong at a later date. Biopsy results will be available with Dr. Valero. The patient will follow up with primary care, Dr. Valero and Dr. Wong in 1 to 2 weeks. The patient understands instructions and agrees to plan. At the time of discharge, vital signs were stable and the patient afebrile. Dictated by Tonya Navarrete, [place] MD CHA Breen/MODL /[id number]
== END 2019-11-09 10:46 | disposition home or self-care (01) | DRG 377 ==
LOC: ER 13:27 → ERHOLD 15:19 → MED/SURG 17:53 → MED/SURG2 11-07 05:51 → OBSVTOIN 11-07 08:31
PROVIDERS: ADMIT Internal Medicine; ATTEND Internal Medicine
PROC: 30233N1 Transfusion of Nonautologous Red Blood Cells into Peripheral Vein, Percutaneous Approach (ICD-10-PCS; 2019-11-05)
PROC: 0DBN8ZX Excision of Sigmoid Colon, Via Natural or Artificial Opening Endoscopic, Diagnostic (ICD-10-PCS; 2019-11-08)
PROC: 0DBP8ZX Excision of Rectum, Via Natural or Artificial Opening Endoscopic, Diagnostic (ICD-10-PCS; 2019-11-08)
PROC: 0DBM8ZX Excision of Descending Colon, Via Natural or Artificial Opening Endoscopic, Diagnostic (ICD-10-PCS; 2019-11-08)
PROC: 0D568ZZ Destruction of Stomach, Via Natural or Artificial Opening Endoscopic (ICD-10-PCS; principal; 2019-11-08 13:30)
PROC: 0DBK8ZX Excision of Ascending Colon, Via Natural or Artificial Opening Endoscopic, Diagnostic (ICD-10-PCS; 2019-11-08 13:30)
DX: K31.811 Angiodysplasia of stomach and duodenum with bleeding (principal); I85.11 Secondary esophageal varices with bleeding; A04.72 Enterocolitis due to Clostridium difficile, not specified as recurrent; E87.1 Hypo-osmolality and hyponatremia; K76.6 Portal hypertension; D62 Acute posthemorrhagic anemia; D12.2 Benign neoplasm of ascending colon; D49.0 Neoplasm of unspecified behavior of digestive system; K63.89 Other specified diseases of intestine; K70.31 Alcoholic cirrhosis of liver with ascites; D63.8 Anemia in other chronic diseases classified elsewhere; D69.6 Thrombocytopenia, unspecified; J45.909 Unspecified asthma, uncomplicated; M10.9 Gout, unspecified; K63.5 Polyp of colon; K62.1 Rectal polyp; K64.8 Other hemorrhoids
CPT/HCPCS: 36415; 43255; 45378; 76700; 80048; 80053; 82105; 82270; 82607; 82728; 82746; 83540; 83735; 84466; 85025; 85045; 85610; 86850; 86900; 86920; 87493; 87635; 88305; G0378; J1610; J1756; J2001; J2250; J3010; J3430; J7050; P9016

== ENCOUNTER 2019-11-23 14:07 | Inpatient (IN) | payer OTHER ==
[~2019-11-23] VITALS: Ht 185.4 cm; Wt 80.3 kg
[~2019-11-23 14:07] MED LIST: ALLOPURINOL100 MG PO; ASCORBIC ACID500 M2 PO; DOCUSATE SODIU100 MG PO; FERROUS SULFAT325 MG PO; MELOXICAM7.5 MG PO; PANTOPRAZOLE SO40 MG PO; PROPRANOLOL HCL10 MG PO; SPIRONOLACTONE25 MG PO; VANCOCIN HCL250 MG PO
--- OUTSIDE RECORDS SUMMARY | 2019-11-23 14:11 | XMS REPORT | Continuity of Care Document ---
Author Author [facility] Organization [facility] Address [address] [place] [address] [address] [place] [address] Phone Unavailable Care Team Providers Care Sleeve Wheel Maker Name Role Phone MD Becca WERNER PCP TONNY GARBER Attphys Unavailable TONNY GARBER Admphys Unavailable Payers Payer Name Policy Type Policy Number Effective Date Expiration Date S selam Umr Hmo NA 2019 00:00:00 [facility] Cdc Review Covid19 NA [facility] Problems Condition Name Condition Details Condition Category Status Onset Date Resolution Date Last Treatment Date Treating Clinician Comments Source Anemia Problem Active [facility] Allergies, Adverse Reactions, Alerts This patient has no known allergies or adverse reactions. Social History Social Habit Start Date Stop Date Quantity Comments Source Sex Assigned At 1960 00:00:00 1960 00:00:00 Male [facility] Medications Ordered Medication Name Filled Medication Name Start Date Stop Da te Current Medication? Ordering Clinician Indication Dosage Frequency Signature (SIG) Comments Components Source Vancomycin Hcl (Vancocin Hcl) 250 Mg CAPSULE Vancomyci n Hcl (Vancocin Hcl) 250 Mg CAPSULE 2019-11-08 09:00:00 Yes 250 Every 6 Hours [facility] Ascorbic Acid Ascorbic Acid 2019-11-06 10:34:00 Yes 500 Twice A Day [facility] Pantoprazole Sodium (Protonix) 40 Mg TABLET. Pantopr azole Sodium (Protonix) 40 Mg TABLET. 2019-11-06 10:34:00 Yes 40 Daily@0600 [facility] Allopurinol Allopurinol Yes 100 Twice A Day [facility] Docusate Sodium Docusate Sodium Yes 100 [facility] Ferrous Sulfate Ferrous Sulfate Yes 1 Daily [facility] Propranolol Hcl Propranolol Hcl Yes 10 Twice A Day [facility] Spironolactone Spironolactone Yes 25 Daily [facility] Meloxicam Meloxicam 2019-11-06 00:00:00 No 7.5 Daily [facility] Vital Signs Vital Name Observation Time Observation Value Comments Source Body Temperature 2019-11-09 07:43:00 97.6 [degF] [facility] Weight 2019-11-09 01:16:00 164 [lb_av] [facility] BMI (Body Mass Index) 2019-11-09 01:16:00 21.6 kg/m2 [facility] Procedures Procedure Date / Time Performed Performing Clinician Sourc e US abdomen complete 2019-11-07 00:00:00 [facility] Plan of Care Planned Activity Planned Date Details Comments Source Instructions Anemia [facility] Instructions Infection Control [facility] Encounters Start Date/Time End Date/Time [facility] En[facility] ID Source 2019-11-07 08:31:00 2019-11-09 10:46:00 Discharged Inpatient 1 TONNY GARBER [facility] [id number] [facility] Results Test Description Test Time Test Comments Results Result Comments Source Blood leukocytes automated count (number/volume) 2019-11-09 04:35:00 Test Item White Blood Count (test code = 6690-2) 4.49 4.8-10.8 [facility] count (number/volume)2019-11-09 04:35:00* Test Item Value Reference Range Interpretation Comments Red Blood Count (test code = 789-8) 2.53 4.3-5.7 [facility] hemoglobin measurement (moles/volume)2019-11-09 04:35:00* Test Item Value Reference Range Interpretation Comments Hemoglobin (test code = 66411-5) 8.4 14.0-18.0 [facility] blood hematocrit (volume fraction)2019-11-09 04:35:00* Test Item Value Reference Range Interpretation Comments Hematocrit (test code = 4544-3) 28.7 38.2-49.6 [facility] erythrocyte mean corpuscular uvhnad2249-68-07 04:35:00* Test Item Value Reference Range Interpretation Comments Mean Corpuscular Volume (test code = 787-2) 113.4 81-99 [facility] mean corpuscular hemoglobin (mass per erythrocyte)2019-11-09 04:35:00* Test Item Value Reference Range Interpretation Comments Mean Corpuscular Hemoglobin (test code = 785-6) 33.2 28-32 [facility] erythrocyte mean corpuscular hemoglobin concentration measurement (mass/volume)2019-11-09 04:35:00* Test Item Value Reference Range Interpretation Comments Mean Corpuscular Hemoglobin Concent (test code = 786-4) 29.3 31-35 [facility] HospitalRDW ZaoRh-Wxf2273-31-19 04:35:00* Test Item Value Reference Range Interpretation Comments Red Cell Distribution Width (test code = 69165-2) 24.6 11.7 -14.4 [facility] blood platelet count (count/volume)2019-11-09 04:35:00* Test Item Value Reference Range Interpretation Comments Platelet Count (test code = 777-3) 71 140-360 [facility] blood segmented neutrophil count as percentage of total gcgoyjzzbf9018-79-28 04:35:00* Test Item Value Reference Range Interpretation Comments Neutrophils (%) (Auto) (test code = 87137-7) 67.2 38.7-80.0 [facility] blood lymphocyte count as percentage ot total uyofdzhlhf5154-98-32 04:35:00* Test Item Value Reference Range Interpretation Comments Lymphocytes (%) (Auto) (test code = 736-9) 15.6 18.0-39.1 [facility]Autom[facility] blood monocyte count as percentage of total wavswvmcgy0820-34-75 04:35:00* Test Item Value Reference Range Interpretation Comments Monocytes (%) (Auto) (test code = 5905-5) 13.4 4.4-11.3 [facility]Autom[facility] blood eosinophil count as percentage of total pjmdjchzza2515-78-26 04:35:00* Test Item Value Reference Range Interpretation Comments Eosinophils (%) (Auto) (test code = 713-8) 2.7 0.0-6.0 [facility]Autom[facility] blood basophil count as percentage of total wtggtpavsm3116-72-65 04:35:00* Test Item Value Reference Range Interpretation Comments Basophils (%) (Auto) (test code = 706-2) 0.9 0.0-1.0 [facility] HospitalFluoroscopic procedure less than one hour jrevhrkr4829-88-99 04:35:00* Test Item Value Reference Range Interpretation Comments IM GRANULOCYTES % (test code = IM GRANULOCYTES %) 0.2 0.0- 1.0 [facility] blood neutrophil count 2019-11-09 04:35:00* Test Item Value Reference Range Interpretation Comments Neutrophils # (Auto) (test code = 751-8) 3.0 2.1-6.9 [facility]Blood lymphocytes count (number/volume) 2019-11-09 04:35:00* Test Item Value Reference Range Interpretation Comments Lymphocytes # (Auto) (test code = 18820-1) 0.7 1.0-3.2 [facility]Blood monocytes automated count (number/volume)2019-11-09 04:35:00* Test Item Value Reference Range Interpretation Comments Monocytes # (Auto) (test code = 742-7) 0.6 0.2-0.8 [facility] HospitalAutom[facility] blood eosinophil count 2019-11-09 04:35:00* Test Item Value Reference Range Interpretation Comments Eosinophils # (Auto) (test code = 711-2) 0.1 0.0-0.4 [facility] HospitalAutomated blood basophil count (count/volume)2019-11-09 04:35:00* Test Item Value Reference Range Interpretation Comments Basophils # (Auto) (test code = 704-7) 0.0 0.0-0.1 [facility] HospitalFluoroscopic procedure less than one hour gsghixxd3331-29-34 04:35:00* Test Item Value Reference Range Interpretation Comments Absolute Immature Granulocyte (auto (guille t code = Absolute Immature Granulocyte (auto) 0.01 0-0.1 [facility] HospitalBlood platelets count by estimate (number/volume)2019-11-09 04:35:00* Test Item Value Reference Range Interpretation Comments Platelet Estimate (test code = 44325-9) MODERATELY DECREASED [facility] HospitalPlatelet pfalhllnfs9856-26-00 04:35:00* Test Item Value Reference Range Interpretation Comments Platelet Morphology Comment (test code = 14351-7) NORMAL [facility] polychromasia detection by light enmkxugtcs3032-61-12 04:35:00* Test Item Value Reference Range Interpretation Comments Polychromasia (test code = 10823-2) FEW [facility] hypochromia detection by light jvwqgnofwq6438-51-38 04:35:00* Test Item Value Reference Range Interpretation Comments Hypochromasia (test code = 728-6) SLIGHT [facility] anisocytosis detection by light mzpnjcvead2495-76-36 04:35:00* Test Item Value Reference Range Interpretation Comments Anisocytosis (test code = 702-1) MODERATE [facility] HospitalBlood macrocytes detection by light fvedqrrowj6378-96-85 04:35:00* Test Item Value Reference Range Interpretation Comments Macrocytosis (test code = 738-5) MODERATE [facility] HospitalRBC cmbsiwlgcn7934-66-45 04:35:00* Test Item Value Reference Range Interpretation Comments Red Cell Morphology Comment (test code = 6742-1) ABNORMAL [facility] plasma sodium measurement (moles/volume)2019-11-09 04:35:00* Test Item Value Reference Range Interpretation Comments Sodium Level (test code = 2951-2) 140 136-145 [facility] or plasma potassium measurement (moles/volume)2019-11-09 04:35:00* Test Item Value Reference Range Interpretation Comments Potassium Level (test code = 2823-3) 4.3 3.5-5.1 [facility] or plasma chloride measurement (moles/volume)2019-11-09 04:35:00* Test Item Value Reference Range Interpretation Comments Chloride Level (test code = 2075-0) 115 98-107 [facility] or plasma carbon dioxide, total measurement (moles/volume)2019-11-09 04:35:00* Test Item Value Reference Range Interpretation Comments Carbon Dioxide Level (test code = 2028-9) 20 22-29 [facility] or plasma anion anw3507-82-52 04:35:00* Test Item Value Reference Range Interpretation Comments Anion Gap (test code = 54287-1) 9.3 8-16 [facility] or plasma urea nitrogen measurement (mass/volume)2019-11-09 04:35:00* Test Item Value Reference Range Interpretation Comments Blood Urea Nitrogen (test code = 3094-0) 12 7-26 [facility] or plasma creatinine measurement (mass/volume)2019-11-09 04:35:00* Test Item Value Reference Range Interpretation Comments Creatinine (test code = 2160-0) 0.93 0.72-1.25 [facility] or plasma urea nitrogen/creatinine mass yguph8805-82-45 04:35:00* Test Item Value Reference Range Interpretation Comments BUN/Creatinine Ratio (test code = 3097-3) 13 6-25 [facility] HospitalEstimated glomerular filtration rate (GFR) vpurrgfrwlgsm0868-51-88 04:35:00* Test Item Value Reference Range Interpretation Comments Estimat Glomerular Filtration Rate (test code = 399601554) > 60 >60 Ranges were taken from the National Kidney Disease Education Program and the [facility] [employer] literature.Reference ranges:60 or greater: Kgpxqs33-29 ( for 3 consecutive months): Chronic kidney disease 15 or less: Kidney failureCuero Regional HospitalGlucose fquxdodcqqw0672-16-13 04:35:00* Test Item Value Reference Range Interpretation Comments Glucose Level (test code = DNH7078) 88 74-118 [facility] or plasma calcium measurement (mass/volume)2019-11-09 04:35:00* Test Item Value Reference Range Interpretation Comments Calcium Level (test code = 38705-5) 8.3 8.4-10.2 [facility] HospitalProthrombin time (PT) in platelet poor plasma by coagulation aogzg5974-75-59 04:40:00* Test Item Value Reference Range Interpretation Comments Prothrombin Time (test code = 5902-2) 16.2 11.9-14.5 [facility] HospitalINR in Platelet poor plasma by Coagulation anhpa6198-31-74 04:40:00* Test Item Value Reference Range Interpretation Comments Prothromb Time International Ratio (test code = 6301-6) 1.22 Oral Anticoagulant Therapy INR Values:1. Low Intensity Therapy 1.5 - 2.02 . Moderate Intensity Therapy 2.0 - 3.03. High Intensity Therapy(1) 2.5 - 3. 54. High Intensity Therapy(2) 3.0 - 4.05. Panic Value INR > 5.0 [facility] or plasma magnesium measurement (mass/volume)2019-11-08 04:40:00* Test Item Value Reference Range Interpretation Comments Magnesium Level (test code = 52319-7) 3.2 1.3-2.1 [facility] or plasma total bilirubin measurement (mass/volume)2019-11-08 04:40:00* Test Item Value Reference Range Interpretation Comments Total Bilirubin (test code = 1975-2) 5.9 0.2-1.2 [facility] HospitalFluoroscopic procedure less than one hour gsdzayaq9368-64-17 04:40:00* Test Item Value Reference Range Interpretation Comments Aspartate Amino Transf (AST/SGOT) (test code = Aspartate Amino Transf (AST/SGOT)) 98 5-34 [facility] or plasma alanine aminotransferase measurement (enzymatic activity/volume)2019-11-08 04:40:00* Test Item Value Reference Range Interpretation Comments Alanine Aminotransferase (ALT/SGPT) (test code = 1742-6) 29 0-55 [facility] or plasma protein measurement (mass/volume)2019-11-08 04:40:00* Test Item Value Reference Range Interpretation Comments Total Protein (test code = 2885-2) 6.5 6.5-8.1 [facility] or plasma albumin measurement (mass/volume)2019-11-08 04:40:00* Test Item Value Reference Range Interpretation Comments Albumin (test code = 1751-7) 2.8 3.5-5.0 [facility] HospitalPlasma globulin measurement (mass/volume) 2019-11-08 04:40:00* Test Item Value Reference Range Interpretation Comments Globulin (test code = 86387-9) 3.7 2.3-3.5 [facility] or plasma albumin/globulin mass fritv8257-93-99 04:40:00* Test Item Value Reference Range Interpretation Comments Albumin/Globulin Ratio (test code = 1759-0) 0.8 0.8-2.0 [facility] or plasma alkaline phosphatase measurement (enzymatic activity/volume)2019-11-08 04:40:00* Test Item Value Reference Range Interpretation Comments Alkaline Phosphatase (test code = 6768-6) 61 40-150 [facility] HospitalUS ABDOMEN EKGGZUYR8346-43-82 13:17:00 [facility] [address] [address] Patient Name: SHAI JARQUIN Flora MR #: [id number] : [birth year] Age/Sex: 59/M Req #: [id number] Adm Physician: TONNY GARBER MD Ordered by: CATHI CHILD MD Report #: [id number] Location: MED/SURG2 Room/Bed: [facility] Procedure: [id number] US/US [place] AGUERO COMPLETE Exam Date: 11/07/19 Exam Time: 1154 REPORT STATUS: Signed EXAM: US [place] AGUERO COMPLETE DATE: 11/07/2019 11:54 AM INDICATION: HCC screening . COMPARISON: None TECHNIQUE: Transverse and longitudinal arevalo scale and color doppler sonographic images of the upper abdomen were obtained. FINDINGS: Exam is somewhat limited by body habitus and bowel gas. LIVER 15.2 cm in the right midclavicular line. Increased echogenicity of the live r. Mildly nodular contour. No evidence of mass. SPLEEN 14.5 cm in maxim um diameter. Normal echogenicity, no masses. GALLBLADDER No gallbladder wall thickening, distension, stone, or pericholecystic fluid. Contracted. Neg ative reported sonographic Ruiz's sign. BILE DUCTS No intra nor extra-h epatic biliary dilation. Common bile duct measures 0.6 cm PANCREAS: Not v isualized due to overlying bowel gas. RIGHT KIDNEY: 10.6 cm Echogenicity: Normal Collecting System: No hydronephrosis Stones: None Cyst/Mass: Non e LEFT KIDNEY: 10.0 cm Echogenicity: Normal Collecting System: No hydr onephrosis Stones: None Cyst/Mass: None VESSELS: Aorta: Visualized p ortions are within normal size limits Inferior Vena Cava: Visualized portions are normal Main Portal Vein: 1.0 cm, normal size with hepatopetal flow. F REE FLUID: Trace ascites in the right upper quadrant. IMPRESSION: Exam is somewhat limited by body habitus and bowel gas. Liver measures at the upper l imits of normal. Hepatic steatosis. Mildly nodular contour may represent early cirrhosis. Mild splenomegaly. Trace ascites in the right upper quadrant. Signed by: Dr. Margarito Ortega MD on 11/07/2019 1:22 PM Dictated By: BETH ORTEGA MD 1322 Transcribed By: ITZ on 11/07/19 1322 COPY TO: CATHI CHILD MD Serum or plasma hepatitis A virus IgM antibody detection by fewgsdhxcnm3643-87-68 05:52:00* Test Item Value Reference Range Interpretation Comments Hepatitis A IgM Antibody (test code = 55484-0) Negative Negativ e [facility] or plasma hepatitis B virus surface antigen detection by duuivwachoy8391-43-69 05:52:00* Test Item Value Reference Range Interpretation Comments Hepatitis B Surface Antigen (test code = 5196-1) Negative Negat aftab [facility] or plasma hepatitis B virus core IgM antibody detection by oztcruynqar7298-59-06 05:52:00* Test Item Value Reference Range Interpretation Comments Hepatitis B Core IgM Antibody (test code = 94349-9) Negative Ne gative [facility]inte[facility]um hepatitis C virus antibody kekrygwpb5645-99-41 05:52:00* Test Item Value Reference Range Interpretation Comments Hepatitis C Antibody (test code = 64397-6) 0.2 0.0-0.9 Negative: < 0.8 Indeterminate: 0.8 - 0.9 Positive: > 0.9 The CDC recommends that a positive HCV antibody result be followed up with a HCV Nucleic Acid Amplification test (418764).Performed at: [facility] [id number] [place] [id number] Director: Donaldo Hayes MD, Phone: [phone] Regional HospitalFluoroscopic procedure less than one hour mnxpsczg4432-53-72 05:26:00* Test Item Value Reference Range Interpretation Comments Differential Total Cells Counted (test code = Differavel tial Total Cells Counted) 24 [facility] HospitalManual blood lymphocytes/100 leukocytes 2019-11-07 05:26:00* Test Item Value Reference Range Interpretation Comments Lymphocytes % (Manual) (test code = 737-7) 54 19-48 [facility] monocytes/100 leukocytes 2019-11-07 05:26:00* Test Item Value Reference Range Interpretation Comments Monocytes % (Manual) (test code = 744-3) 46 3.4-9.0 [facility] HospitalAutomated reticulocyte count as percentage of total pihrupwfpwxa7858-41-17 05:26:00* Test Item Value Reference Range Interpretation Comments Percent Reticulocyte Count (test code = 13228-5) 5.7 0.8-2 .2 [facility] or plasma xhlkv-3-asvqnzagldr.tumor marker measurement (mass/volume)2019-11-07 05:26:00* Test Item Value Reference Range Interpretation Comments Alpha Fetoprotein (test code = 19612-9) 2.6 0.0-8.3 [facility] Electrochemiluminescence Immunoassay(ECLIA)Values obtained wit h different assay methods or kits cannotbe used interchangeably. Results cannot be interpreted asabsolute evidence of the presence or absence of malignantdisea se.This test is not interpretable in females.Performed at: [address] [id number] Director: Donaldo Hayes MD, Phone: [phone] [facility] Pointeerum or plasma iron measurement (mass/volume)2019-11-06 10:50:00* Test Item Value Reference Range Interpretation Comments Iron Level (test code = 2498-4) 34 65-175 [facility]inte[facility]um or plasma iron binding capacity measurement (mass/volume)2019-11-06 10:50:00* Test Item Value Reference Range Interpretation Comments Total Iron Binding Capacity (test code = 2500-7) 276 261-4 78 [facility]inte[facility]um or plasma iron saturation measurement (mass fraction)2019-11-06 10:50:00* Test Item Value Reference Range Interpretation Comments Percent Iron Saturation (test code = 2502-3) 12 15-50 [facility]inte[facility]um or plasma transferrin measurement (mass/volume)2019-11-06 10:50:00* Test Item Value Reference Range Interpretation Comments Transferrin (test code = 3034-6) 197 174-364 [facility] or plasma ferritin measurement (mass/volume)2019-11-06 10:50:00* Test Item Value Reference Range Interpretation Comments Ferritin (test code = 2276-4) 32.91 21.81-274.66 [facility] HospitalBlood cobalamin (vitamin B12) measurement (mass/volume)2019-11-06 10:50:00* Test Item Value Reference Range Interpretation Comments Vitamin B12 Level (test code = 68365-6) 1016 213-816 [facility]inte[facility]um or plasma folate measurement (mass/volume)2019-11-06 10:50:00* Test Item Value Reference Range Interpretation Comments Folate (test code = 2284-8) <2.0 >3.0 Verified by repeat analysisA serum folate concentration of less than 3.1 ng/ mL isconsidered to represent clinical deficiency.Performed at: [facility] [id number] [place], [place] [id number] Director: Donaldo Hayes MD, Phone : [phone] Scott & White Medical Center – Lake Pointetool gastrointestinal hemoglobin fnvklfhni6288-73-11 06:42:00* Test Item Value Reference Range Interpretation Comments Stool Occult Blood (test code = 2335-8) POSITIVE NEGATIVE [facility] HospitalClostridium difficile A and B toxin assay 2019-11-06 06:42:00* Test Item Value Reference Range Interpretation Comments Clostridium Difficile Toxin A & B (test code = 626768769) POSI TIVE NEGATIVE Results called to LEÓN GRAY at 1432 on 11/06/19 by Neida Reyes. RB OK .Results PRINTed to HERNANDEZ MAX in infection control at 1432 on 11/06/19 by Vincent Reyes.Testing on stool aspirate specimens is outside inspection engineer claims si nce specimen type not validated on this assay.[facility] HospitalFluoroscopic procedure less than one hour hrpellmk8074-47-71 16:54:00* Test Item Value Reference Range Interpretation Comments Coronavirus (PCR) (test code = Coronavirus (PCR)) NOT DETECTED NOTD ETECTED SARS-COV-2 (COVID19), HIGHRISK, RT-PCRNegative results do not preclude SARS-CoV- 2 infection and should not be used as the sole basis for patient management deci sions. Negative results must be combined with clinical observations, patient his tory, and epidemiological information. Optimum specimen types and timing for pea k viral levels during infections caused by SARS-CoV-2 have not been determined. Collection of multiple specimens ot types of specimens may be necessary to detec t virus. Improper specimen collection and handling, sequence variability under p rimers/probes, or organism present below the limit of detection may lead to fals e negative results. Positive and negative predictive values of testing are highl y dependent on prevalance. False negative test results are more likely when prev alence is high.The expected result is negative (not detected).The SARS-CoV-2 guille t is intended for the qualitative detection of nucleic acid from SARS-CoV-2 in n asopharyngeal and oropharyngeal swab samples from patients who meet COVID-19 cli nical and or epidemiological criteria. For lower respiratory tract specimens, th e assay is submitted for authoriztion by FDA under an Emergency Use Authorizatio n (EUA). Testing methodology is real time RT-PCR. If received as separate collec tion devices, nasopharygeal and oropharyngeal specimens are combined for analysi s. Additional specimens may be split to a separate accession for analysi and rep orting as this test includes a single unit of service.Test results must be corre lated with clinical presentation and evaluated in the context of other laborator y and epidemiologic data. Test performance can be affected because the epidemiol ogy and clinical spectrum of infection caused by SARS-CoV-2 is not fully known. For example, the optimum types of specimens to collect and when during the cours e of infection these specimens are most likely to contain detectable viral RNA m ay not be known.This test has not been Food and Drug Administration (FDA) cleare d or approved and has been authorized by FDA under an Emergency Use Authorizatio n (EUA). The test is only authorized for the duration of the declaration that ci rcumstances exist justifying the authorization of emergency use of in vitro diag nostic tests for detection and/or diagnosis of SARS-CoV-2 under section 564(b) o f the Act, 21 U.S.C. section 360bbb-3(b)(1), unless the authorization is termina jarrod or revoked sooner. [facility] are certified under the C linical Laboratory Improvement Amendments of 1988 (CLIA), 42 U.S.C. section 263a , to perform high complexity tests.Testing performed by [facility] [id number] [place], [place] [phone] Director: Alec Portillo M.D.CLIA # [id number] [facility]
[2019-11-23] MEDS ORDERED: PANTOPRAZOLE 40 MG 10ML VIAL IV STA (14:36)
[2019-11-23] MEDS ORDERED: SODIUM CHLORIDE 0.9% 500ML 500 ML IV ONE (14:45)
[2019-11-23] MEDS ORDERED: SODIUM CHLORIDE 0.9% 250ML 250 ML IV ONE (14:45)
[2019-11-23] MEDS ORDERED: OCTREOTIDE ACETATE 0.05 MG/ML AMP IV STA (14:47)
[2019-11-23 14:59] LABS: BASOPHILS % 0.6 % (0.0-1.0); EOSINOPHILS # (AUTO) 0.1 (0.0-0.4); EOSINOPHILS % 1.3 % (0.0-6.0); LYMPHOCYTES # (AUTO) 0.7 (1.0-3.2); LYMPHOCYTES % 11.3 % (18.0-39.1); MEAN CORPUSCULAR HEMOGLOBIN 33.3 pg (28-32); MEAN CORPUSCULAR HGB CONC 27.5 g/dL (31-35); MEAN CORPUSCULAR VOLUME 121.1 fL (81-99); MONOCYTES # (AUTO) 0.9 (0.2-0.8); MONOCYTES % 14.7 % (4.4-11.3); NEUTROPHILS # (AUTO) 4.5 (2.1-6.9); NEUTROPHILS % 71.3 % (38.7-80.0); PLATELET COUNT 151 x10e3/uL (140-360); RED BLOOD COUNT 1.47 x10e6/uL (4.3-5.7); RED CELL DISTRIBUTION WIDTH 18.9 % (11.7-14.4)
[2019-11-23 15:02] LABS: HEMATOCRIT 17.8 % (38.2-49.6); HEMOGLOBIN 4.9 g/dL (14.0-18.0)
[2019-11-23 15:04] LABS: INR 1.3
[2019-11-23 15:05] LABS: PARTIAL THROMBOPLASTIN TIME 33.8 seconds (23.8-35.5)
[2019-11-23 15:15] LABS: CREATINE KINASE MB 3.1 ng/mL (0-5.0)
[2019-11-23 15:16] LABS: ALBUMIN 2.4 g/dL (3.5-5.0); ALBUMIN/GLOBULIN RATIO 0.8 (0.8-2.0); ANION GAP 10.7 mmol/L (8-16); CALCIUM 8.2 mg/dL (8.4-10.2); CREATININE, SERUM 1.52 mg/dL (0.72-1.25); MAGNESIUM 2.4 MG/DL (1.3-2.1); POTASSIUM 3.7 mmol/L (3.5-5.1)
--- OUTSIDE RECORDS SUMMARY | 2019-11-23 15:22 | XMS REPORT | Continuity of Care Document ---
Author Author [facility] Organization [facility] Address [address] [place] [address] [address] [place] [address] Phone Unavailable Care Team Providers Care Advanced Manufacturing Associate Name Role Phone MD Becca WERNER PCP TONNY GARBER Attphys Unavailable TONNY GARBER Admphys Unavailable Payers Payer Name Policy Type Policy Number Effective Date Expiration Date S selam Umr Hmo NA 2019 00:00:00 [facility] Review Covid19 NA [facility] Problems Condition Name Condition Details Condition Category Status Onset Date Resolution Date Last Treatment Date Treating Clinician Comments Source Anemia Problem Active [facility] Allergies, Adverse Reactions, Alerts This patient has no known allergies or adverse reactions. Social History Social Habit Start Date Stop Date Quantity Comments Source Sex Assigned At 1960 00:00:00 1960 00:00:00 Male [facility] Medications Ordered Medication Name Filled Medication Name Start Date Stop Da te Current Medication? Ordering Clinician Indication Dosage Frequency Signature (SIG) Comments Components Source Vancomycin Hcl (Vancocin Hcl) 250 Mg CAPSULE Vancomyci n Hcl (Vancocin Hcl) 250 Mg CAPSULE 2019-11-08 09:00:00 Yes 250 Every 6 Hours [facility] Ascorbic Acid Ascorbic Acid 2019-11-06 10:34:00 Yes 500 Twice A Day [facility] Pantoprazole Sodium (Protonix) 40 Mg TABLET. Pantopr azole Sodium (Protonix) 40 Mg TABLET. 2019-11-06 10:34:00 Yes 40 Daily@0600 [facility] Allopurinol Allopurinol Yes 100 Twice A Day [facility] Docusate Sodium Docusate Sodium Yes 100 [facility] Ferrous Sulfate Ferrous Sulfate Yes 1 Daily [facility] Propranolol Hcl Propranolol Hcl Yes 10 Twice A Day [facility] Spironolactone Spironolactone Yes 25 Daily [facility] Meloxicam Meloxicam 2019-11-06 00:00:00 No 7.5 Daily [facility] Vital Signs Vital Name Observation Time Observation Value Comments Source Body Temperature 2019-11-09 07:43:00 97.6 [degF] [facility] Weight 2019-11-09 01:16:00 164 [lb_av] [facility] BMI (Body Mass Index) 2019-11-09 01:16:00 21.6 kg/m2 [facility] Procedures Procedure Date / Time Performed Performing Clinician Sourc e US abdomen complete 2019-11-07 00:00:00 [facility] Plan of Care Planned Activity Planned Date Details Comments Source Instructions Anemia [facility] Instructions Infection Control [facility] [place] [place] Encounters Start Date/Time End Date/Time [facility] Ad[facility] ID Source 2019-11-07 08:31:00 2019-11-09 10:46:00 Discharged Inpatient 1 TONNY GARBER [facility] [id number] [facility] [place] [place] Results Test Description Test Time Test Comments Results Result Comments Source Blood leukocytes automated count (number/volume) 2019-11-09 04:35:00 Test Item White Blood Count (test code = 6690-2) 4.49 4.8-10.8 [facility] automated count (number/volume)2019-11-09 04:35:00* Test Item Value Reference Range Interpretation Comments Red Blood Count (test code = 789-8) 2.53 4.3-5.7 [facility] hemoglobin measurement (moles/volume)2019-11-09 04:35:00* Test Item Value Reference Range Interpretation Comments Hemoglobin (test code = 28245-5) 8.4 14.0-18.0 [facility] CenterAutomated blood hematocrit (volume fraction)2019-11-09 04:35:00* Test Item Value Reference Range Interpretation Comments Hematocrit (test code = 4544-3) 28.7 38.2-49.6 [facility] CenterAutomated erythrocyte mean corpuscular xfjbhq6895-75-02 04:35:00* Test Item Value Reference Range Interpretation Comments Mean Corpuscular Volume (test code = 787-2) 113.4 81-99 [facility] CenterAutom[facility] erythrocyte mean corpuscular hemoglobin (mass per erythrocyte)2019-11-09 04:35:00* Test Item Value Reference Range Interpretation Comments Mean Corpuscular Hemoglobin (test code = 785-6) 33.2 28-32 [facility]Aut[facility] mean corpuscular hemoglobin concentration measurement (mass/volume)2019-11-09 04:35:00* Test Item Value Reference Range Interpretation Comments Mean Corpuscular Hemoglobin Concent (test code = 786-4) 29.3 31-35 [facility] CenterRDW EbdIa-Iao7189-92-19 04:35:00* Test Item Value Reference Range Interpretation Comments Red Cell Distribution Width (test code = 84110-3) 24.6 11.7 -14.4 [facility] CenterAut[facility] hospitaled blood platelet count (count/volume)2019-11-09 04:35:00* Test Item Value Reference Range Interpretation Comments Platelet Count (test code = 777-3) 71 140-360 [facility] CenterAutomated blood segmented neutrophil count as percentage of total hizbnuflxh3581-81-96 04:35:00* Test Item Value Reference Range Interpretation Comments Neutrophils (%) (Auto) (test code = 55779-7) 67.2 38.7-80.0 [facility] CenterAutat[facility] hospitaled blood lymphocyte count as percentage ot total avvwmwciwp5753-87-83 04:35:00* Test Item Value Reference Range Interpretation Comments Lymphocytes (%) (Auto) (test code = 736-9) 15.6 18.0-39.1 [facility] CenterAutomated blood monocyte count as percentage of total rnzgwugnwv1072-66-81 04:35:00* Test Item Value Reference Range Interpretation Comments Monocytes (%) (Auto) (test code = 5905-5) 13.4 4.4-11.3 [facility] CenterAutomated blood eosinophil count as percentage of total vxqdrkmyww2264-73-50 04:35:00* Test Item Value Reference Range Interpretation Comments Eosinophils (%) (Auto) (test code = 713-8) 2.7 0.0-6.0 [facility] CenterAutomated blood basophil count as percentage of total vxxaoxpsth9510-56-65 04:35:00* Test Item Value Reference Range Interpretation Comments Basophils (%) (Auto) (test code = 706-2) 0.9 0.0-1.0 [facility] CenterFluoroscopic procedure less than one hour pajwnkhz2581-48-09 04:35:00* Test Item Value Reference Range Interpretation Comments IM GRANULOCYTES % (test code = IM GRANULOCYTES %) 0.2 0.0- 1.0 [facility] CenterAutomated blood neutrophil count 2019-11-09 04:35:00* Test Item Value Reference Range Interpretation Comments Neutrophils # (Auto) (test code = 751-8) 3.0 2.1-6.9 [facility] CenterBlood lymphocytes count (number/volume) 2019-11-09 04:35:00* Test Item Value Reference Range Interpretation Comments Lymphocytes # (Auto) (test code = 80571-8) 0.7 1.0-3.2 [facility] CenterBlood monocytes automated count (number/volume)2019-11-09 04:35:00* Test Item Value Reference Range Interpretation Comments Monocytes # (Auto) (test code = 742-7) 0.6 0.2-0.8 [facility] CenterAutomated blood eosinophil count 2019-11-09 04:35:00* Test Item Value Reference Range Interpretation Comments Eosinophils # (Auto) (test code = 711-2) 0.1 0.0-0.4 [facility] CenterAutomated blood basophil count (count/volume)2019-11-09 04:35:00* Test Item Value Reference Range Interpretation Comments Basophils # (Auto) (test code = 704-7) 0.0 0.0-0.1 [facility] CenterFluoroscopic procedure less than one hour cclhiddl6394-65-64 04:35:00* Test Item Value Reference Range Interpretation Comments Absolute Immature Granulocyte (auto (guille t code = Absolute Immature Granulocyte (auto) 0.01 0-0.1 [facility] CenterBlood platelets count by estimate (number/volume)2019-11-09 04:35:00* Test Item Value Reference Range Interpretation Comments Platelet Estimate (test code = 96063-7) MODERATELY DECREASED [facility] CenterPlatelet btzmsiocwc5862-39-36 04:35:00* Test Item Value Reference Range Interpretation Comments Platelet Morphology Comment (test code = 60903-8) NORMAL [facility] polychromasia detection by light apduqwvusc1894-29-75 04:35:00* Test Item Value Reference Range Interpretation Comments Polychromasia (test code = 62842-7) FEW [facility] CenterBlst. [facility] hypochromia detection by light rocixhmcfh0468-91-68 04:35:00* Test Item Value Reference Range Interpretation Comments Hypochromasia (test code = 728-6) SLIGHT [facility] anisocytosis detection by light jbxuymmmaz4280-83-48 04:35:00* Test Item Value Reference Range Interpretation Comments Anisocytosis (test code = 702-1) MODERATE [facility] CenterBlood macrocytes detection by light bhcobkrnex3610-16-25 04:35:00* Test Item Value Reference Range Interpretation Comments Macrocytosis (test code = 738-5) MODERATE [facility] CenterRBC quldqepmoc2209-06-21 04:35:00* Test Item Value Reference Range Interpretation Comments Red Cell Morphology Comment (test code = 6742-1) ABNORMAL [facility] sodium measurement (moles/volume)2019-11-09 04:35:00* Test Item Value Reference Range Interpretation Comments Sodium Level (test code = 2951-2) 140 136-145 [facility]ererum or plasma potassium measurement (moles/volume)2019-11-09 04:35:00* Test Item Value Reference Range Interpretation Comments Potassium Level (test code = 2823-3) 4.3 3.5-5.1 [facility]ererum or plasma chloride measurement (moles/volume)2019-11-09 04:35:00* Test Item Value Reference Range Interpretation Comments Chloride Level (test code = 2075-0) 115 98-107 [facility]ererum or plasma carbon dioxide, total measurement (moles/volume)2019-11-09 04:35:00* Test Item Value Reference Range Interpretation Comments Carbon Dioxide Level (test code = 2028-9) 20 22-29 [facility]ererum or plasma anion whm3279-47-44 04:35:00* Test Item Value Reference Range Interpretation Comments Anion Gap (test code = 85097-0) 9.3 8-16 [facility]ererum or plasma urea nitrogen measurement (mass/volume)2019-11-09 04:35:00* Test Item Value Reference Range Interpretation Comments Blood Urea Nitrogen (test code = 3094-0) 12 7-26 [facility]ererum or plasma creatinine measurement (mass/volume)2019-11-09 04:35:00* Test Item Value Reference Range Interpretation Comments Creatinine (test code = 2160-0) 0.93 0.72-1.25 [facility] Centererum or plasma urea nitrogen/creatinine mass lokkk6870-41-63 04:35:00* Test Item Value Reference Range Interpretation Comments BUN/Creatinine Ratio (test code = 3097-3) 13 6-25 [facility] CenterEstimated glomerular filtration rate (GFR) rbibgywtgacui3971-85-58 04:35:00* Test Item Value Reference Range Interpretation Comments Estimat Glomerular Filtration Rate (test code = 852263332) > 60 >60 Ranges were taken from the National Kidney Disease Education Program and the [facility] [employer] literature.Reference ranges:60 or greater: Ocnidf69-93 ( for 3 consecutive months): Chronic kidney disease 15 or less: Kidney failureUniversity Medical CenterGlucose bgikcnshaut4678-38-00 04:35:00* Test Item Value Reference Range Interpretation Comments Glucose Level (test code = HOF7113) 88 74-118 [facility]ererum or plasma calcium measurement (mass/volume)2019-11-09 04:35:00* Test Item Value Reference Range Interpretation Comments Calcium Level (test code = 48571-9) 8.3 8.4-10.2 [facility] CenterProthrombin time (PT) in platelet poor plasma by coagulation djpkz8468-43-66 04:40:00* Test Item Value Reference Range Interpretation Comments Prothrombin Time (test code = 5902-2) 16.2 11.9-14.5 [facility] CenterINR in Platelet poor plasma by Coagulation xluun0084-16-43 04:40:00* Test Item Value Reference Range Interpretation Comments Prothromb Time International Ratio (test code = 6301-6) 1.22 Oral Anticoagulant Therapy INR Values:1. Low Intensity Therapy 1.5 - 2.02 . Moderate Intensity Therapy 2.0 - 3.03. High Intensity Therapy(1) 2.5 - 3. 54. High Intensity Therapy(2) 3.0 - 4.05. Panic Value INR > 5.0 [facility] Centererum or plasma magnesium measurement (mass/volume)2019-11-08 04:40:00* Test Item Value Reference Range Interpretation Comments Magnesium Level (test code = 61845-2) 3.2 1.3-2.1 [facility] Centererum or plasma total bilirubin measurement (mass/volume)2019-11-08 04:40:00* Test Item Value Reference Range Interpretation Comments Total Bilirubin (test code = 1975-2) 5.9 0.2-1.2 [facility] CenterFluoroscopic procedure less than one hour ivcaqlzg9601-36-88 04:40:00* Test Item Value Reference Range Interpretation Comments Aspartate Amino Transf (AST/SGOT) (test code = Aspartate Amino Transf (AST/SGOT)) 98 5-34 [facility] Centererum or plasma alanine aminotransferase measurement (enzymatic activity/volume)2019-11-08 04:40:00* Test Item Value Reference Range Interpretation Comments Alanine Aminotransferase (ALT/SGPT) (test code = 1742-6) 29 0-55 [facility] Centererum or plasma protein measurement (mass/volume)2019-11-08 04:40:00* Test Item Value Reference Range Interpretation Comments Total Protein (test code = 2885-2) 6.5 6.5-8.1 [facility] Centererum or plasma albumin measurement (mass/volume)2019-11-08 04:40:00* Test Item Value Reference Range Interpretation Comments Albumin (test code = 1751-7) 2.8 3.5-5.0 [facility] CenterPlasma globulin measurement (mass/volume) 2019-11-08 04:40:00* Test Item Value Reference Range Interpretation Comments Globulin (test code = 79189-2) 3.7 2.3-3.5 [facility] Centererum or plasma albumin/globulin mass svulg1535-64-58 04:40:00* Test Item Value Reference Range Interpretation Comments Albumin/Globulin Ratio (test code = 1759-0) 0.8 0.8-2.0 [facility] Centererum or plasma alkaline phosphatase measurement (enzymatic activity/volume)2019-11-08 04:40:00* Test Item Value Reference Range Interpretation Comments Alkaline Phosphatase (test code = 6768-6) 61 40-150 [facility] CenterUS ABDOMEN NUCUFCPJ0933-69-76 13:17:00 [facility] [address] [address] Patient Name: SHAI JARQUIN Flora MR #: [id number] : [birth year] 58 Age/Sex: 59/M Req #: [id number] Adm Physician: TONNY GARBER MD Ordered by: CATHI CHILD MD Report #: [id number] Location: MED/SURG2 Room/Bed: [facility] Procedure: [id number] US/US [place] AGUERO COMPLETE Exam Date: 11/07/19 [...] hepatitis A virus IgM antibody detection by oxfhwyikcsr5517-05-74 05:52:00* Test Item Value Reference Range Interpretation Comments Hepatitis A IgM Antibody (test code = 74179-2) Negative Negativ e [facility] Centererum or plasma hepatitis B virus surface antigen detection by ptulhzjuurl1229-13-47 05:52:00* Test Item Value Reference Range Interpretation Comments Hepatitis B Surface Antigen (test code = 5196-1) Negative Negat aftab [facility] Centererum or plasma hepatitis B virus core IgM antibody detection by frglxmcdttj3456-99-26 05:52:00* Test Item Value Reference Range Interpretation Comments Hepatitis B Core IgM Antibody (test code = 90694-9) Negative Ne gative [facility] Centererum hepatitis C virus antibody vxbiirprn0044-39-21 05:52:00* Test Item Value Reference Range Interpretation Comments Hepatitis C Antibody (test code = 13267-4) 0.2 0.0-0.9 Negative: < 0.8 Indeterminate: 0.8 - 0.9 Positive: > 0.9 The CDC recommends that a positive HCV antibody result be followed up with a HCV Nucleic Acid Amplification test (643665).Performed at: [facility] [id number] [place] [address] [id number] Director: Donaldo Hayes MD, Phone: [phone] Medical CenterFluoroscopic procedure less than one hour zutotjyz8390-41-32 05:26:00* Test Item Value Reference Range Interpretation Comments Differential Total Cells Counted (test code = Differavel tial Total Cells Counted) 24 [facility] CenterManual blood lymphocytes/100 leukocytes 2019-11-07 05:26:00* Test Item Value Reference Range Interpretation Comments Lymphocytes % (Manual) (test code = 737-7) 54 19-48 [facility]st[facility] monocytes/100 leukocytes 2019-11-07 05:26:00* Test Item Value Reference Range Interpretation Comments Monocytes % (Manual) (test code = 744-3) 46 3.4-9.0 [facility] CenterAutomated reticulocyte count as percentage of total fhdethhbkivo0652-27-64 05:26:00* Test Item Value Reference Range Interpretation Comments Percent Reticulocyte Count (test code = 80179-5) 5.7 0.8-2 .2 [facility] Centererum or plasma udius-5-jcbzhniwmic.tumor marker measurement (mass/volume)2019-11-07 05:26:00* Test Item Value Reference Range Interpretation Comments Alpha Fetoprotein (test code = 08953-6) 2.6 0.0-8.3 [facility] Electrochemiluminescence Immunoassay(ECLIA)Values obtained wit h different assay methods or kits cannotbe used interchangeably. Results cannot be interpreted asabsolute evidence of the presence or absence of malignantdisea se.This test is not interpretable in females.Performed at: [address] [id number] Director: Donaldo Hayes MD, Phone: [phone] Mansfield Medical Centererum or plasma iron measurement (mass/volume)2019-11-06 10:50:00* Test Item Value Reference Range Interpretation Comments Iron Level (test code = 2498-4) 34 65-175 [facility] Centererum or plasma iron binding capacity measurement (mass/volume)2019-11-06 10:50:00* Test Item Value Reference Range Interpretation Comments Total Iron Binding Capacity (test code = 2500-7) 276 261-4 78 [facility] Centererum or plasma iron saturation measurement (mass fraction)2019-11-06 10:50:00* Test Item Value Reference Range Interpretation Comments Percent Iron Saturation (test code = 2502-3) 12 15-50 [facility] Centererum or plasma transferrin measurement (mass/volume)2019-11-06 10:50:00* Test Item Value Reference Range Interpretation Comments Transferrin (test code = 3034-6) 197 174-364 [facility] Centererum or plasma ferritin measurement (mass/volume)2019-11-06 10:50:00* Test Item Value Reference Range Interpretation Comments Ferritin (test code = 2276-4) 32.91 21.81-274.66 [facility] CenterBlood cobalamin (vitamin B12) measurement (mass/volume)2019-11-06 10:50:00* Test Item Value Reference Range Interpretation Comments Vitamin B12 Level (test code = 24927-7) 1016 213-816 [facility] Centererum or plasma folate measurement (mass/volume)2019-11-06 10:50:00* Test Item Value Reference Range Interpretation Comments Folate (test code = 2284-8) <2.0 >3.0 Verified by repeat analysisA serum folate concentration of less than 3.1 ng/ mL isconsidered to represent clinical deficiency.Performed at: [facility] [address] [place], [place] [id number] Director: Donaldo Hayes MD, Phone : [phone] Mansfield Medical Centertool gastrointestinal hemoglobin eyphtqohh9968-12-85 06:42:00* Test Item Value Reference Range Interpretation Comments Stool Occult Blood (test code = 2335-8) POSITIVE NEGATIVE [facility] CenterClostridium difficile A and B toxin assay 2019-11-06 06:42:00* Test Item Value Reference Range Interpretation Comments Clostridium Difficile Toxin A & B (test code = 289677883) POSI TIVE NEGATIVE Results called to LEÓN GRAY at 1432 on 11/06/19 by Neida Reyes. RB OK .Results PRINTed to HERNANDEZ MAX in infection control at 1432 on 11/06/19 by Vincent Reyes.Testing on stool aspirate specimens is outside solution sales senior executive claims si nce specimen type not validated on this assay.[facility] CenterFluoroscopic procedure less than one hour qsadanzj5344-94-51 16:54:00* Test Item Value Reference Range Interpretation [...] complexity tests.Testing performed by [facility] [id number] [place], [place] [phone] Director: Alec Portillo M.D.CLIA # [id number] [facility]
[2019-11-23] MEDS: OCTREOTIDE ACETATE 500 MCG in SODIUM CHLORIDE 0.9% 250ML 250 ML IV SCH (16:02)
--- NOTE | 2019-11-23 16:18 | Emergency Department Note ---
History of Present Illnes History of Present Illness Chief Complaint: General Medicine Complaints History of Present Illness This is a 59 year old male PATIENT IN FROM DR. WILKERSON OFFICE FOR EVALUATION AND TREATMENT OF ANEMIA. PATIENT WITH H&H OF 5.2 & 17.1 PER LABS DRAWN 11/22/2019. PATIENT WAS HERE 11/07/2019 FOR SAME. PATIENT REPORTS BLACK STOOLS X 2 WEEKS. STATES HAD A COLONOSCOPY AND EGD WHEN ADMITTED LAST TIME AND HAD NUMEROUS POLYPS REMOVED. STATES HE IS SUPPOSED TO SCHEDULE SURGERY WITH DR HERNANDEZ FOR A COLON MASS. SOB/RAWLS, DIZZY WHEN STANDING Historian: Patient, Family Member Arrival Mode: Car Plaster Mold Maker Required: No Onset (how long ago): day(s) (LABS DRAWN YESTERDAY, BLACK STOOLS X 2 WEEKS) Location: STOOL Quality: BLACK Radiation: non-radiation Severity: severe Onset quality: gradual Duration (how long): week(s) (2) Timing of current episode: intermittent Progression: worsening Chronicity: new Context: recent illness Relieving factors: none Exacerbating factors: none Treatments prior to arrival: none Past Medical/Family History Physician Review I have reviewed the patient's past medical and family history. Any updates have been documented here. Past Medical History Recent Fever: No Clinical Suspicion of Infectio: No New/Unexplained Change in Ment: No Past Medical History: Asthma, Liver Disease Other Medical History: GOUT Past Surgical History: Back Surgery Social History Smoking Cessation: Never Smoker Counseling Performed: No Alcohol Use: None Any Illegal Drug Use: No TB Exposure/Symptoms: No Physically hurt or threatened: No Family History Family history of heart diseas: No Other Last Tetanus: UTD Any Pre-Existing Lines (PICC,: No Is patient up to date on immun: Yes Last Flu: UTD Last Pneumovax: NA Review of Systems Review of Systems Constitutional: weakness, other (DIZZY WHEN STANDS UP) EENTM: no symptoms Cardiovascular: no symptoms Respiratory: dyspnea on exertion Gastrointestinal: other (BLACK STOOL) Genitourinary: no symptoms Musculoskeletal: no symptoms Neurological: no symptoms Psychological: no symptoms Endocrine: no symptoms Hematological/Lymphatic: no symptoms Review of other systems All other systems reviewed and negative. Physical Exam Related Data Allergies: Coded Allergies: No Known Allergies (Unverified , 11/05/19) Triage Vital Signs Vital Signs Date Time Temp Pulse Resp B/P (MAP) Pulse Ox O2 Delivery O2 Flow Rate FiO2 6/2/20 14:21 97.6 75 22 117/47 97 Physical Exam CONSTITUTIONAL Constitutional: ill appearing HENT HENT: normocephalic, atraumatic, oropharynx clear/moist, nose normal HENT L/R: left ext ear normal, right ext ear normal EYES Eyes: PERRL, conjunctivae normal NECK Neck: ROM normal PULMONARY Pulmonary: effort normal, breath sounds normal CARDIOVASCULAR Cardiovascular: regular rhythm, heart sounds normal, capillary refill normal, normal rate GASTROINTESTINAL Abdominal: soft, nontender, bowel sounds normal, distension (MILD); tender, guarding, mass, rebound GENITOURINARY Genitourinary: exam deferred SKIN Skin: pale MUSCULOSKELETAL Musculoskeletal: ROM normal NEUROLOGICAL Neurological: alert, oriented x 3, no gross motor or sensory deficits PSYCHOLOGICAL Psychological: mood/affect normal, judgement normal Results Laboratory Result Diagram: 11/23/19 1440 11/23/19 1440 Laboratory Laboratory Tests Test 11/23/19 14:40 White Blood Count 6.27 x10e3/uL (4.8-10.8) Red Blood Count 1.47 x10e6/uL (4.3-5.7) Hemoglobin 4.9 g/dL (14.0-18.0) Hematocrit 17.8 % (38.2-49.6) Mean Corpuscular Volume 121.1 fL (81-99) Mean Corpuscular Hemoglobin 33.3 pg (28-32) Mean Corpuscular Hemoglobin Concent 27.5 g/dL (31-35) Red Cell Distribution Width 18.9 % (11.7-14.4) Platelet Count 151 x10e3/uL (140-360) Neutrophils (%) (Auto) 71.3 % (38.7-80.0) Lymphocytes (%) (Auto) 11.3 % (18.0-39.1) Monocytes (%) (Auto) 14.7 % (4.4-11.3) Eosinophils (%) (Auto) 1.3 % (0.0-6.0) Basophils (%) (Auto) 0.6 % (0.0-1.0) Neutrophils # (Auto) 4.5 (2.1-6.9) Lymphocytes # (Auto) 0.7 (1.0-3.2) Monocytes # (Auto) 0.9 (0.2-0.8) Eosinophils # (Auto) 0.1 (0.0-0.4) Basophils # (Auto) 0.0 (0.0-0.1) Absolute Immature Granulocyte (auto 0.05 x10e3/uL (0-0.1) Prothrombin Time 17.0 seconds (11.9-14.5) Prothromb Time International Ratio 1.30 Activated Partial Thromboplast Time 33.8 seconds (23.8-35.5) Sodium Level 132 mmol/L (136-145) Potassium Level 3.7 mmol/L (3.5-5.1) Chloride Level 108 mmol/L (98-107) Carbon Dioxide Level 17 mmol/L (22-29) Anion Gap 10.7 mmol/L (8-16) Blood Urea Nitrogen 44 mg/dL (7-26) Creatinine 1.52 mg/dL (0.72-1.25) Estimat Glomerular Filtration Rate 47 ML/MIN (60-) BUN/Creatinine Ratio 29 (6-25) Glucose Level 124 mg/dL (74-118) Calcium Level 8.2 mg/dL (8.4-10.2) Magnesium Level 2.4 MG/DL (1.3-2.1) Total Bilirubin 3.7 mg/dL (0.2-1.2) Aspartate Amino Transf (AST/SGOT) 64 IU/L (5-34) Alanine Aminotransferase (ALT/SGPT) 30 IU/L (0-55) Alkaline Phosphatase 90 IU/L (40-150) Creatine Kinase 39 IU/L (30-200) Creatine Kinase MB 3.10 ng/mL (0-5.0) Troponin I 0.016 ng/mL (0-0.300) Total Protein 5.6 g/dL (6.5-8.1) Albumin 2.4 g/dL (3.5-5.0) Globulin 3.2 g/dL (2.3-3.5) Albumin/Globulin Ratio 0.8 (0.8-2.0) Lab results reviewed: Yes Procedures 12 Lead ECG Interpretation Plaster Mold Maker: Interpreted by ED physician Date: Nov 23, 2019 Time: 14:[address] tracings: reviewed Rhythm: sinus rhythm Rate: normal (74) QRS axis: normal T wave depression: II, III, aVF, V5, V6 Clinical Impression: abnormal ECG Critical Care Time Total Critical Care Time (min): 35 Critical care time exclusive o: separately billable procedures Critcal care necessary due to: circulatory failure Critcal care time spent by me: discussion w consultants, evaluation patient response to tx, examination of patient, order/review laboratory studies, re- evaluation of patient condition, review of old charts Subsequent provider I assumed direction of critical care for this patient from another provider of my specialty. Assessment & Plan Assessment & Plan Final Impression: (1) ESOPHAGEAL VARICES WITH BLEEDING (2) Anemia Assessment & Plan ADMIT IMCU Depart Disposition: ADMITTED Last Vital Signs Date Time Temp Pulse Resp B/P (MAP) Pulse Ox O2 Delivery O2 Flow Rate FiO2 11/23/19 14:21 97.6 75 22 117/47 97 Home Meds Active Scripts Vancomycin Hcl (VANCOCIN HCL) 250 Mg Capsule, 250 MG PO Q6HR for 8 Days Prov:THEO SMITH NP 11/08/19 Pantoprazole Sodium* (PROTONIX) 40 Mg Tablet.dr, 40 MG PO DAILY@0600 for 30 Days, TAB Prov:THEO SMITH MANAGER PHOTO 11/06/19 Ascorbic Acid (ASCORBIC ACID) 500 Mg Tab.chew, 500 MG PO BID for 30 Days Prov:THEO SMITH NP 11/06/19 Reported Medications Allopurinol (ALLOPURINOL) 100 Mg Tablet, 100 MG PO BID, #30 TAB 11/06/19 Propranolol Hcl (PROPRANOLOL HCL) 10 Mg Tablet, 10 MG PO BID, TAB 11/06/19 Spironolactone (SPIRONOLACTONE) 25 Mg Tablet, 25 MG PO DAILY, #60 TAB 11/06/19 Docusate Sodium (DOCUSATE SODIUM) 100 Mg Capsule, 100 MG PO, CAP 11/06/19 Ferrous Sulfate (FERROUS SULFATE) 325 Mg Tablet, 1 PO DAILY 11/06/19 Medications in the ED Pantoprazole Sodium 80 mg ONCE STAT IV Last administered on 11/23/19at 16:02; Admin Dose 80 MG; Start 11/23/19 at 14:36; Stop 11/23/19 at 14:59; Status DC Sodium Chloride 250 ml @ 0 mls/hr ONCE ONCE IV ; Start 11/23/19 at 14:45; Stop 11/23/19 at 14:46; Status DC Furosemide 20 mg Q3H PRN IV TRANSFUSION; Start 11/23/19 at 14:45; Stop 12/23/19 at 14:44 Sodium Chloride 500 ml @ 0 mls/hr Q0M ONCE IV Last administered on 11/23/19at 16:02; Admin Dose 999 MLS/HR; Start 11/23/19 at 14:45; Stop 11/23/19 at 14:46; S izzy TINAJERO Octreotide Acetate 0.05 mg ONCE STAT IV Last administered on 11/23/19at 16:02; Admin Dose 0.05 MG; Start 11/23/19 at 14:47; Stop 11/23/19 at 14:59; Status DC GAGE PALACIOS MD Nov 23, 2019 16:18
[2019-11-23] MEDS: PROPRANOLOL HCL 10 MG TAB PO SCH (17:07)
[2019-11-23] MEDS: ALLOPURINOL 100 MG TAB PO SCH (17:10)
[2019-11-23] MEDS: FUROSEMIDE INJ 10 MG/ML 2 ML VIAL IV PRN (18:35)
--- NOTE | 2019-11-23 20:33 | Diagnostic Imaging Report ---
EXAMINATION: CHEST XRAY LINE PLACEMENT INDICATION: S/P LINE PLACEMENT COMPARISON: Right upper extremity PICC with distal tip projected on the SVC approximately 2.5 cm proximal to the cavoatrial junction. FINDINGS: TUBES and LINES: None. LUNGS: Lungs are well inflated. Lungs are clear. There is no evidence of pneumonia or pulmonary edema. PLEURA: No pleural effusion or pneumothorax. HEART AND MEDIASTINUM: The cardiomediastinal silhouette is unremarkable. BONES AND SOFT TISSUES: No acute osseous lesion. Degenerative changes of the shoulder joints bilaterally, particularly the right glenohumeral joint. UPPER ABDOMEN: No free air under the diaphragm. IMPRESSION: Right upper extremity PICC with distal tip projected on the SVC approximately 2.5 cm proximal to the cavoatrial junction, in adequate position. Signed by: Dr. Vincent Salgado M.D. on 11/23/2019 8:30 PM
[2019-11-23 21:30] VITALS: BP 102/66
--- NOTE | 2019-11-23 21:30 | NUR ---
Received pt to 198 from ER. Placed on EKG, pulse ox and NBP for monitoring. Admission history, Initial admission assessment, & Vaccine history completed. See interventions. Addendum: 11/24/19 at 0555 by Marimar Dia RN Sandostatin infusing @ 25.1ml/hr.
[2019-11-23] MEDS ORDERED: SODIUM CHLORIDE 0.9% 250ML 250 ML ONE (21:52)
--- NOTE | 2019-11-23 22:00 | NUR ---
1st of 2 units of PRBCs started.
[2019-11-23 22:19] VITALS: BP 102/66
[2019-11-23] MEDS: PANTOPRAZOLE 40 MG 10ML VIAL IV SCH (23:04)
[2019-11-24] VITALS (8 sets, daily range): BP systolic 95–116; BP diastolic 39–79
--- NOTE | 2019-11-24 | NUR ---
Blood complete. Line flushed with NS.
--- NOTE | 2019-11-24 00:30 | NUR ---
2nd unit of blood started.
--- NOTE | 2019-11-24 02:45 | NUR ---
2nd unit complete. Line flushed with NS.
[2019-11-24] MEDS: OCTREOTIDE ACETATE 500 MCG in SODIUM CHLORIDE 0.9% 250ML 250 ML IV SCH ×3 (03:01→21:25)
[2019-11-24] MEDS: FUROSEMIDE INJ 10 MG/ML 2 ML VIAL IV PRN (03:06)
--- NOTE | 2019-11-24 05:00 | NUR ---
Blood drawn for lab.
[2019-11-24 05:46] LABS: BASOPHILS % 0.7 % (0.0-1.0); EOSINOPHILS # (AUTO) 0.1 (0.0-0.4); EOSINOPHILS % 1.8 % (0.0-6.0); HEMATOCRIT 21.9 % (38.2-49.6); LYMPHOCYTES # (AUTO) 0.5 (1.0-3.2); LYMPHOCYTES % 10.4 % (18.0-39.1); MEAN CORPUSCULAR HGB CONC 29.7 g/dL (31-35); MEAN CORPUSCULAR VOLUME 104.3 fL (81-99); MONOCYTES # (AUTO) 0.6 (0.2-0.8); NEUTROPHILS # (AUTO) 3.2 (2.1-6.9); NEUTROPHILS % 72.4 % (38.7-80.0); PLATELET COUNT 117 x10e3/uL (140-360); RED CELL DISTRIBUTION WIDTH 24.4 % (11.7-14.4)
[2019-11-24 05:47] LABS: HEMOGLOBIN 6.5 g/dL (14.0-18.0)
--- NOTE | 2019-11-24 05:50 | NUR ---
b 6.5. Call to Dr. John Valero. Awaiting call back.
[2019-11-24 05:52] LABS: ALBUMIN 2.2 g/dL (3.5-5.0); ALBUMIN/GLOBULIN RATIO 0.8 (0.8-2.0); ANION GAP 11.9 mmol/L (8-16); CALCIUM 7.5 mg/dL (8.4-10.2); CREATININE, SERUM 1.41 mg/dL (0.72-1.25); POTASSIUM 3.9 mmol/L (3.5-5.1)
[2019-11-24] MEDS ORDERED: SODIUM CHLORIDE 0.9% 250ML 250 ML IV ONE (06:45)
[2019-11-24] MEDS: SPIRONOLACTONE 25 MG TAB PO SCH (09:59)
[2019-11-24] MEDS: PANTOPRAZOLE 40 MG 10ML VIAL IV SCH ×2 (09:59→21:25)
[2019-11-24] MEDS: ALLOPURINOL 100 MG TAB PO SCH ×2 (09:59→17:28)
[2019-11-24] MEDS: PROPRANOLOL HCL 10 MG TAB PO SCH ×2 (10:16→17:28)
[2019-11-24] MEDS ORDERED: MELATONIN 5 MG TABLET PO PRN (13:30)
[2019-11-24] MEDS ORDERED: ONDANSETRON HCL INJ 2MG/ML 2ML 2 MG/ML VIAL IV PRN (13:30)
[2019-11-24] MEDS ORDERED: HYDRALAZINE HCL 20 MG/ML VIAL IV PRN (13:30)
[2019-11-24] MEDS ORDERED: SODIUM CHLORIDE 0.9% 250ML 250 ML ONE (14:06)
--- NOTE | 2019-11-24 17:07 | NUR ---
Nutrition Intervention Note RD Recommendation(s) for Physician: -Recommend advancing to GI soft diet when medically appropriate -Encourage PO intake and nutrition supplement as needed Plan of Care: RD following, monitoring for tolerance and adequacy Nutrition reason for involvement: Nutrition Risk Trigger MST 4 RD Assessment (11/24/19) Pt is a 59 year old male admitted with GI bleed, cirrhosis, colon mass, and esophageal varices. Pt reports he is tolerating clear liquid diet. Prior to admission, pt reports eating 50% of meals for the past week. Pt stated he usually weighs 188 lbs, but was unsure of when he last weighed this amount. Pt currently has a weight of 177 lbs in chart. No N/V noted. Offered pt a nutrition supplement, but he declined at this time. Will continue to monitor Principal Problems/Diagnoses: GI bleed, cirrhosis, colon mass, and esophageal varices PMH: asthma, liver cirrhosis, gout GI: soft, non-tender, round abdomen, last recorded BM 11/23 Skin: intact Labs: (11/23) Na 138, BUN 40, Cr 1.41, Glu 136, Ca 7.5, AST 67 Meds: spironolactone, protonix, lasix, zofran, hydralazine Ht: 73 inches Wt: 177 lbs BMI: 23.4 kg/m2 IBW: 184 lbs Malnutrition Evaluation (11/24/19) The patient does not meet criteria for a specified degree of malnutrition at this time. Will re-evaluate at follow-up as appropriate. Nutrition Prescription (Diet Order): clear liquid Estimated Nutritional Needs: 2098-1424 calories/day (25-35 kcal/kg CBW) 80-120 g protein/day (1-1.5 g pro/kg CBW) Diet Adequacy: Not meeting calorie needs, Not meeting protein needs Tolerance: Tolerating PO Diet Education Needs Assessment:Diet education not indicated, patient on temporary/transition diet. Nutrition Care Level: moderate Nutrition Diagnosis: Inadequate energy intake related to decreased ability to consume sufficient energy as evidenced by insufficient energy intake from diet compared to needs Goal: Patient will meet 75-100% of estimated needs by follow up Progress: N/A Interventions: -fiber-modified diet, encourage Commercial beverage Monitoring/Evaluation: -Total energy intake, Total protein intake, Modified diet, Liquid supplement, Weight change Signed: Niesha Posada, MAS[place], LD
--- NOTE | 2019-11-24 19:00 | NUR ---
Report received from Hannah Mendez RN.
[2019-11-24 20:00] LABS: BASOPHILS # (AUTO) 0.1 (0.0-0.1); BASOPHILS % 1.1 % (0.0-1.0); EOSINOPHILS # (AUTO) 0.2 (0.0-0.4); EOSINOPHILS % 3.4 % (0.0-6.0); HEMOGLOBIN 8.3 g/dL (14.0-18.0); LYMPHOCYTES # (AUTO) 0.6 (1.0-3.2); LYMPHOCYTES % 12.9 % (18.0-39.1); MEAN CORPUSCULAR HEMOGLOBIN 30.2 pg (28-32); MEAN CORPUSCULAR HGB CONC 28.6 g/dL (31-35); MEAN CORPUSCULAR VOLUME 105.5 fL (81-99); MONOCYTES # (AUTO) 0.6 (0.2-0.8); MONOCYTES % 13.5 % (4.4-11.3); NEUTROPHILS % 68.6 % (38.7-80.0); PLATELET COUNT 108 x10e3/uL (140-360); RED BLOOD COUNT 2.75 x10e6/uL (4.3-5.7); RED CELL DISTRIBUTION WIDTH 25.8 % (11.7-14.4)
[2019-11-24] MEDS ORDERED: OCTREOTIDE ACETATE 2 ML ONE (20:46)
[2019-11-25] VITALS (10 sets, daily range): BP systolic 87–119; BP diastolic 29–66
--- NOTE | 2019-11-25 01:42 | NUR ---
Dr. John Valero present and assessing the pt.
--- NOTE | 2019-11-25 04:39 | NUR ---
AM blood lab specimen drawn and sent to lab.
[2019-11-25 05:06] LABS: BASOPHILS % 0.7 % (0.0-1.0); EOSINOPHILS # (AUTO) 0.2 (0.0-0.4); EOSINOPHILS % 4.1 % (0.0-6.0); HEMATOCRIT 25.1 % (38.2-49.6); HEMOGLOBIN 7.6 g/dL (14.0-18.0); LYMPHOCYTES # (AUTO) 0.6 (1.0-3.2); MEAN CORPUSCULAR HEMOGLOBIN 31.1 pg (28-32); MEAN CORPUSCULAR HGB CONC 30.3 g/dL (31-35); MEAN CORPUSCULAR VOLUME 102.9 fL (81-99); MONOCYTES # (AUTO) 0.6 (0.2-0.8); MONOCYTES % 13.8 % (4.4-11.3); NEUTROPHILS # (AUTO) 2.8 (2.1-6.9); NEUTROPHILS % 66.9 % (38.7-80.0); PLATELET COUNT 91 x10e3/uL (140-360); RED BLOOD COUNT 2.44 x10e6/uL (4.3-5.7); RED CELL DISTRIBUTION WIDTH 25.2 % (11.7-14.4)
[2019-11-25 05:21] LABS: ALBUMIN/GLOBULIN RATIO 0.7 (0.8-2.0); ANION GAP 8.7 mmol/L (8-16); CALCIUM 7.3 mg/dL (8.4-10.2); CREATININE, SERUM 1.27 mg/dL (0.72-1.25); POTASSIUM 3.7 mmol/L (3.5-5.1)
[2019-11-25] MEDS ORDERED: PANTOPRAZOLE SOD 40 MG TABEC PO SCH (06:00)
[2019-11-25] MEDS: OCTREOTIDE ACETATE 500 MCG in SODIUM CHLORIDE 0.9% 250ML 250 ML IV SCH ×3 (08:01→21:00)
[2019-11-25] MEDS: PANTOPRAZOLE 40 MG 10ML VIAL IV SCH ×2 (08:17→21:00)
[2019-11-25] MEDS: SPIRONOLACTONE 25 MG TAB PO SCH (08:17)
[2019-11-25] MEDS: PROPRANOLOL HCL 10 MG TAB PO SCH ×2 (08:17→17:01)
[2019-11-25] MEDS: ALLOPURINOL 100 MG TAB PO SCH ×2 (08:17→17:01)
--- NOTE | 2019-11-25 08:34 | NUR ---
Spoke to Dr. Wong regarding consultation for Colon mass. No new orders at this time.
[2019-11-25] MEDS ORDERED: PHYTONADIONE 10 MG/ML AMP SQ ONE (13:45)
--- NOTE | 2019-11-25 14:39 | Consultation ---
DATE OF CONSULTATION: 11/25/2019 CHIEF COMPLAINT: Anemia. HISTORY OF PRESENT ILLNESS: The patient is a 59-year-old male, known to me from recent hospitalization a month ago when he was found to have a hemoglobin of 5 and colonoscopy revealed a partial circumferential mass in the ascending colon. The patient is keep having melenic stool since then and was returned today with weakness and lightheadedness with a hemoglobin of 5. He denies nausea, vomiting, or hematemesis. PAST MEDICAL HISTORY: Positive for liver cirrhosis secondary to alcohol abuse, asthma, and gout. PAST SURGICAL HISTORY: Positive for lumbar laminectomy and diskectomy. Last paracentesis was several years ago. ALLERGIES: THE PATIENT HAS NO DRUG ALLERGIES. SOCIAL HABITS: He denies current smoking or alcohol use. REVIEW OF SYSTEMS: No chest pain. Mild shortness of breath. No cough or fevers. PHYSICAL EXAMINATION: VITAL SIGNS: Stable. He is afebrile. GENERAL: He is awake, alert, in mild discomfort. HEENT: Sclerae are nonicteric. NECK: Supple. LUNGS: Clear. HEART: Regular rate and rhythm. ABDOMEN: Mildly distended with minimal guarding. No rebound tenderness. EXTREMITIES: No cyanosis or edema. LABORATORY DATA: White cell count is 4, hemoglobin is 7.6, and platelet count is 91. Creatinine is 1.2. Bilirubin of 6.0 with alkaline phosphatase 67. INR 1.3 with PT of 17. ASSESSMENT: Known right colonic tumor with chronic anemia. PLAN: The patient is being transfused with blood products with plan for right colectomy in a.m. William Wong MD DNDenise/MODL /[id number]
[2019-11-25 20:23] LABS: BASOPHILS % 0.5 % (0.0-1.0); EOSINOPHILS # (AUTO) 0.2 (0.0-0.4); EOSINOPHILS % 2.5 % (0.0-6.0); HEMATOCRIT 26.7 % (38.2-49.6); HEMOGLOBIN 7.9 g/dL (14.0-18.0); LYMPHOCYTES # (AUTO) 0.4 (1.0-3.2); LYMPHOCYTES % 6.4 % (18.0-39.1); MEAN CORPUSCULAR HEMOGLOBIN 30.2 pg (28-32); MEAN CORPUSCULAR HGB CONC 29.6 g/dL (31-35); MEAN CORPUSCULAR VOLUME 101.9 fL (81-99); MONOCYTES # (AUTO) 0.6 (0.2-0.8); MONOCYTES % 10.2 % (4.4-11.3); NEUTROPHILS # (AUTO) 4.9 (2.1-6.9); NEUTROPHILS % 79.9 % (38.7-80.0); PLATELET COUNT 132 x10e3/uL (140-360); RED BLOOD COUNT 2.62 x10e6/uL (4.3-5.7)
[2019-11-26 04:37] VITALS: BP 104/60
[2019-11-26 05:44] LABS: BASOPHILS % 0.4 % (0.0-1.0); EOSINOPHILS # (AUTO) 0.2 (0.0-0.4); HEMATOCRIT 25.3 % (38.2-49.6); HEMOGLOBIN 7.5 g/dL (14.0-18.0); LYMPHOCYTES # (AUTO) 0.6 (1.0-3.2); LYMPHOCYTES % 10.7 % (18.0-39.1); MEAN CORPUSCULAR HGB CONC 29.6 g/dL (31-35); MEAN CORPUSCULAR VOLUME 101.2 fL (81-99); MONOCYTES # (AUTO) 0.7 (0.2-0.8); MONOCYTES % 12.5 % (4.4-11.3); NEUTROPHILS # (AUTO) 3.9 (2.1-6.9); PLATELET COUNT 123 x10e3/uL (140-360); RED CELL DISTRIBUTION WIDTH 24.2 % (11.7-14.4)
[2019-11-26 06:21] LABS: ALANINE AMINOTRANSFERASE 23 IU/L (0-55); ALBUMIN 2.1 g/dL (3.5-5.0); ALBUMIN/GLOBULIN RATIO 0.7 (0.8-2.0); ALKALINE PHOSPHATASE 68 IU/L (40-150); ANION GAP 8.9 mmol/L (8-16); BLOOD UREA NITROGEN 24 mg/dL (7-26); BUN/CREATININE RATIO 23 (6-25); CALCIUM 7.4 mg/dL (8.4-10.2); CARBON DIOXIDE 19 mmol/L (22-29); CHLORIDE 118 mmol/L (98-107); CREATININE, SERUM 1.06 mg/dL (0.72-1.25); EST GLOMERULAR FILTRATION RATE > 60 ML/MIN (60-); GLUCOSE 80 mg/dL (74-118); POTASSIUM 3.9 mmol/L (3.5-5.1); SODIUM 142 mmol/L (136-145)
--- NOTE | 2019-11-26 07:06 | NUR ---
UNABLE TO TRANSFUSE 2 UNITS OF PRBC ORDERED BY DR. HERNANDEZ DUE TO BLOOD SHORTAGES. REPORT GIVEN TO THE ONCOMING RN
[2019-11-26 08:00] VITALS: BP 114/61
[2019-11-26] MEDS: PANTOPRAZOLE 40 MG 10ML VIAL IV SCH ×2 (09:04→20:59)
[2019-11-26] MEDS: PROPRANOLOL HCL 10 MG TAB PO SCH ×2 (09:04→17:18)
[2019-11-26] MEDS: ALLOPURINOL 100 MG TAB PO SCH ×2 (09:04→17:18)
[2019-11-26] MEDS: SPIRONOLACTONE 25 MG TAB PO SCH (09:04)
[2019-11-26 12:00] VITALS: BP 114/63
[2019-11-26 12:16] LABS: BASOPHILS % 0.6 % (0.0-1.0); EOSINOPHILS # (AUTO) 0.2 (0.0-0.4); EOSINOPHILS % 3.4 % (0.0-6.0); HEMATOCRIT 24.8 % (38.2-49.6); HEMOGLOBIN 7.3 g/dL (14.0-18.0); LYMPHOCYTES # (AUTO) 0.4 (1.0-3.2); LYMPHOCYTES % 8.9 % (18.0-39.1); MEAN CORPUSCULAR HEMOGLOBIN 30.3 pg (28-32); MEAN CORPUSCULAR HGB CONC 29.4 g/dL (31-35); MEAN CORPUSCULAR VOLUME 102.9 fL (81-99); MONOCYTES # (AUTO) 0.6 (0.2-0.8); MONOCYTES % 11.5 % (4.4-11.3); NEUTROPHILS # (AUTO) 3.7 (2.1-6.9); NEUTROPHILS % 75.2 % (38.7-80.0); PLATELET COUNT 103 x10e3/uL (140-360); RED BLOOD COUNT 2.41 x10e6/uL (4.3-5.7); RED CELL DISTRIBUTION WIDTH 24.4 % (11.7-14.4)
[2019-11-26] MEDS: OCTREOTIDE ACETATE 500 MCG in SODIUM CHLORIDE 0.9% 250ML 250 ML IV SCH ×2 (12:40→19:48)
[2019-11-26 16:00] VITALS: BP 104/61
[2019-11-26 18:35] LABS: BASOPHILS % 0.5 % (0.0-1.0); EOSINOPHILS # (AUTO) 0.2 (0.0-0.4); EOSINOPHILS % 3.2 % (0.0-6.0); HEMATOCRIT 26.5 % (38.2-49.6); HEMOGLOBIN 7.7 g/dL (14.0-18.0); LYMPHOCYTES # (AUTO) 0.5 (1.0-3.2); LYMPHOCYTES % 8.5 % (18.0-39.1); MEAN CORPUSCULAR HEMOGLOBIN 30.3 pg (28-32); MEAN CORPUSCULAR HGB CONC 29.1 g/dL (31-35); MEAN CORPUSCULAR VOLUME 104.3 fL (81-99); MONOCYTES # (AUTO) 0.7 (0.2-0.8); MONOCYTES % 12.6 % (4.4-11.3); NEUTROPHILS # (AUTO) 4.4 (2.1-6.9); NEUTROPHILS % 74.9 % (38.7-80.0); PLATELET COUNT 128 x10e3/uL (140-360); RED BLOOD COUNT 2.54 x10e6/uL (4.3-5.7); RED CELL DISTRIBUTION WIDTH 24.1 % (11.7-14.4)
--- NOTE | 2019-11-26 20:04 | NUR ---
JUST CALLED AND TALKED TO DR HERNANDEZ, MADE HIM AWARE THAT WE HAVE BLOOD 1 UNIT READY IN LAB. PER WE NEED 2 UNITS PRBC ON FRIDAY. CALLED LAB TO TRANSFER THE MESSAGE.
[2019-11-26 20:27] VITALS: BP 120/56
[2019-11-26 20:41] VITALS: BP 120/56
[2019-11-27] VITALS: BP 104/54
[2019-11-27 01:41] LABS: BASOPHILS % 0.4 % (0.0-1.0); EOSINOPHILS # (AUTO) 0.2 (0.0-0.4); EOSINOPHILS % 3.8 % (0.0-6.0); HEMATOCRIT 25.1 % (38.2-49.6); HEMOGLOBIN 7.3 g/dL (14.0-18.0); LYMPHOCYTES # (AUTO) 0.6 (1.0-3.2); LYMPHOCYTES % 13.4 % (18.0-39.1); MEAN CORPUSCULAR HGB CONC 29.1 g/dL (31-35); MEAN CORPUSCULAR VOLUME 103.3 fL (81-99); MONOCYTES # (AUTO) 0.6 (0.2-0.8); MONOCYTES % 12.6 % (4.4-11.3); NEUTROPHILS # (AUTO) 3.3 (2.1-6.9); NEUTROPHILS % 69.6 % (38.7-80.0); PLATELET COUNT 111 x10e3/uL (140-360); RED BLOOD COUNT 2.43 x10e6/uL (4.3-5.7); RED CELL DISTRIBUTION WIDTH 23.7 % (11.7-14.4)
[2019-11-27 04:00] VITALS: BP 109/62
[2019-11-27 06:16] LABS: BASOPHILS % 0.6 % (0.0-1.0); EOSINOPHILS # (AUTO) 0.2 (0.0-0.4); EOSINOPHILS % 4.2 % (0.0-6.0); HEMATOCRIT 24.8 % (38.2-49.6); HEMOGLOBIN 7.3 g/dL (14.0-18.0); LYMPHOCYTES # (AUTO) 0.6 (1.0-3.2); LYMPHOCYTES % 12.3 % (18.0-39.1); MEAN CORPUSCULAR HEMOGLOBIN 30.7 pg (28-32); MEAN CORPUSCULAR HGB CONC 29.4 g/dL (31-35); MEAN CORPUSCULAR VOLUME 104.2 fL (81-99); MONOCYTES # (AUTO) 0.7 (0.2-0.8); MONOCYTES % 13.7 % (4.4-11.3); NEUTROPHILS # (AUTO) 3.3 (2.1-6.9); PLATELET COUNT 106 x10e3/uL (140-360); RED BLOOD COUNT 2.38 x10e6/uL (4.3-5.7); RED CELL DISTRIBUTION WIDTH 23.7 % (11.7-14.4)
[2019-11-27] MEDS: OCTREOTIDE ACETATE 500 MCG in SODIUM CHLORIDE 0.9% 250ML 250 ML IV SCH ×2 (06:21→17:17)
[2019-11-27 06:34] LABS: ALANINE AMINOTRANSFERASE 22 IU/L (0-55); ALBUMIN 2.1 g/dL (3.5-5.0); ALBUMIN/GLOBULIN RATIO 0.7 (0.8-2.0); ALKALINE PHOSPHATASE 70 IU/L (40-150); ANION GAP 8.2 mmol/L (8-16); BLOOD UREA NITROGEN 18 mg/dL (7-26); BUN/CREATININE RATIO 18 (6-25); CALCIUM 7.3 mg/dL (8.4-10.2); CARBON DIOXIDE 18 mmol/L (22-29); CHLORIDE 119 mmol/L (98-107); CREATININE, SERUM 0.98 mg/dL (0.72-1.25); EST GLOMERULAR FILTRATION RATE > 60 ML/MIN (60-); GLUCOSE 99 mg/dL (74-118); POTASSIUM 4.2 mmol/L (3.5-5.1); SODIUM 141 mmol/L (136-145)
[2019-11-27 08:00] VITALS: BP 113/68
[2019-11-27] MEDS: SPIRONOLACTONE 25 MG TAB PO SCH (09:30)
[2019-11-27] MEDS: PROPRANOLOL HCL 10 MG TAB PO SCH ×2 (09:30→17:18)
[2019-11-27] MEDS: PANTOPRAZOLE 40 MG 10ML VIAL IV SCH ×2 (09:30→20:57)
[2019-11-27] MEDS: ALLOPURINOL 100 MG TAB PO SCH ×2 (09:31→17:18)
[2019-11-27 12:00] VITALS: BP 107/54
[2019-11-27 16:00] VITALS: BP 107/53
[2019-11-27] MEDS ORDERED: SODIUM CHLORIDE 0.9% 250ML 250 ML IV ONE (18:45)
[2019-11-27 20:00] VITALS: BP 100/58
[2019-11-28] VITALS (7 sets, daily range): BP systolic 90–113; BP diastolic 45–83
[2019-11-28] MEDS: OCTREOTIDE ACETATE 500 MCG in SODIUM CHLORIDE 0.9% 250ML 250 ML IV SCH ×3 (03:55→20:45)
[2019-11-28 05:33] LABS: BASOPHILS % 0.7 % (0.0-1.0); EOSINOPHILS # (AUTO) 0.2 (0.0-0.4); EOSINOPHILS % 4.5 % (0.0-6.0); HEMOGLOBIN 7.2 g/dL (14.0-18.0); LYMPHOCYTES # (AUTO) 0.6 (1.0-3.2); LYMPHOCYTES % 15.2 % (18.0-39.1); MEAN CORPUSCULAR HGB CONC 28.8 g/dL (31-35); MEAN CORPUSCULAR VOLUME 104.2 fL (81-99); MONOCYTES # (AUTO) 0.5 (0.2-0.8); MONOCYTES % 12.7 % (4.4-11.3); NEUTROPHILS # (AUTO) 2.7 (2.1-6.9); NEUTROPHILS % 66.7 % (38.7-80.0); PLATELET COUNT 100 x10e3/uL (140-360); RED CELL DISTRIBUTION WIDTH 22.5 % (11.7-14.4)
[2019-11-28 05:59] LABS: ALANINE AMINOTRANSFERASE 21 IU/L (0-55); ALBUMIN 2.1 g/dL (3.5-5.0); ALBUMIN/GLOBULIN RATIO 0.7 (0.8-2.0); ALKALINE PHOSPHATASE 75 IU/L (40-150); ANION GAP 8.5 mmol/L (8-16); BLOOD UREA NITROGEN 13 mg/dL (7-26); BUN/CREATININE RATIO 15 (6-25); CALCIUM 7.6 mg/dL (8.4-10.2); CARBON DIOXIDE 19 mmol/L (22-29); CHLORIDE 118 mmol/L (98-107); CREATININE, SERUM 0.89 mg/dL (0.72-1.25); EST GLOMERULAR FILTRATION RATE > 60 ML/MIN (60-); GLUCOSE 98 mg/dL (74-118); POTASSIUM 4.5 mmol/L (3.5-5.1); SODIUM 141 mmol/L (136-145)
[2019-11-28 06:39] LABS: FERRITIN 58.32 ng/mL (21.81-274.66)
[2019-11-28] MEDS ORDERED: SODIUM CHLORIDE 0.9% 250ML 250 ML ONE (08:17)
[2019-11-28] MEDS: SPIRONOLACTONE 25 MG TAB PO SCH (09:53)
[2019-11-28] MEDS: ALLOPURINOL 100 MG TAB PO SCH ×2 (09:53→17:05)
[2019-11-28] MEDS: PANTOPRAZOLE 40 MG 10ML VIAL IV SCH ×2 (09:53→21:36)
[2019-11-28] MEDS: PROPRANOLOL HCL 10 MG TAB PO SCH ×2 (09:53→17:00)
[2019-11-28] MEDS: LACTULOSE SYRUP 20 GM/30 ML UDC PO PRN ×2 (13:49→18:13)
--- NOTE | 2019-11-28 15:18 | Diagnostic Imaging Report ---
EXAM: US ABDOMEN COMPLETE DATE: 11/28/2019 1:09 PM INDICATION: Cirrhosis of liver, abdominal distention. COMPARISON: Abdominal ultrasound 11-07-2019. TECHNIQUE: Transverse and longitudinal arevalo scale and color doppler sonographic images of the abdomen were obtained. FINDINGS: LIVER 18.8 cm in the right midclavicular line. Increased echogenicity of the liver. Mildly nodular contour. No evidence of mass. SPLEEN 15.5 cm in maximum diameter. Normal echogenicity, no masses. GALLBLADDER Distended gallbladder with sludge. No evidence of wall thickening or pericholecystic fluid. Negative reported sonographic Ruiz's sign. BILE DUCTS No intra nor extra-hepatic biliary dilation. Common bile duct measures 1.0 cm PANCREAS: Not visualized due to overlying bowel gas. RIGHT KIDNEY: 10.2 cm Echogenicity: Normal Collecting System: No hydronephrosis Stones: None Cyst/Mass: None LEFT KIDNEY: 10.8 cm Echogenicity: Normal Collecting System: No hydronephrosis Stones: None Cyst/Mass: None VESSELS: Aorta: Visualized portions are within normal size limits Inferior Vena Cava: Visualized portions are normal Main Portal Vein: 1.1 cm, normal size with hepatopetal flow. FREE FLUID: Ascites is seen in the upper abdomen. IMPRESSION: Hepatomegaly and hepatic steatosis. Mildly nodular contour, suggestive of early cirrhosis. Mild splenomegaly. Upper abdominal ascites. Gallbladder sludge with gallbladder distention. No specific evidence of acute cholecystitis. Dilated CBD measuring 1 cm. Suggest correlation with LFTs and MRCP for further evaluation. Signed by: Dr. Jr Pratt MD on 11/28/2019 3:15 PM
--- NOTE | 2019-11-28 17:05 | NUR ---
Pt has completed the second unit of prbc's. He demonstrates sinus bradycardia 56 to 48, previously had been low 60's. Spoke with Chalino Navarrete NP, no new orders.
[2019-11-28 18:40] LABS: EOSINOPHILS # (AUTO) 0.1 (0.0-0.4); EOSINOPHILS % 3.2 % (0.0-6.0); HEMOGLOBIN 8.9 g/dL (14.0-18.0); LYMPHOCYTES # (AUTO) 0.5 (1.0-3.2); LYMPHOCYTES % 11.7 % (18.0-39.1); MEAN CORPUSCULAR HEMOGLOBIN 30.1 pg (28-32); MEAN CORPUSCULAR HGB CONC 29.7 g/dL (31-35); MEAN CORPUSCULAR VOLUME 101.4 fL (81-99); MONOCYTES # (AUTO) 0.5 (0.2-0.8); MONOCYTES % 12.7 % (4.4-11.3); NEUTROPHILS # (AUTO) 2.9 (2.1-6.9); NEUTROPHILS % 70.9 % (38.7-80.0); PLATELET COUNT 86 x10e3/uL (140-360); RED BLOOD COUNT 2.96 x10e6/uL (4.3-5.7); RED CELL DISTRIBUTION WIDTH 22.3 % (11.7-14.4)
[2019-11-28 19:11] LABS: BLOOD UREA NITROGEN 11 mg/dL (7-26); BUN/CREATININE RATIO 11 (6-25); CALCIUM 7.8 mg/dL (8.4-10.2); CARBON DIOXIDE 18 mmol/L (22-29); CHLORIDE 117 mmol/L (98-107); EST GLOMERULAR FILTRATION RATE > 60 ML/MIN (60-); GLUCOSE 147 mg/dL (74-118); SODIUM 139 mmol/L (136-145)
[2019-11-28 19:29] LABS: INR 1.3
--- NOTE | 2019-11-28 20:38 | NUR ---
Spoke with Dr Wong regarding labs: place 1 unit PRBC and 1 unit FFP on hold for OR tomorrow 11/29/19.
--- NOTE | 2019-11-28 20:48 | NUR ---
Spoke with lab regarding orders for FFP and RBC to hold for procedure in am.
[2019-11-29] VITALS (13 sets, daily range): BP systolic 100–159; BP diastolic 42–85
[2019-11-29] MEDS: OCTREOTIDE ACETATE 500 MCG in SODIUM CHLORIDE 0.9% 250ML 250 ML IV SCH ×3 (02:24→17:00)
[2019-11-29 04:51] LABS: BASOPHILS % 0.8 % (0.0-1.0); EOSINOPHILS # (AUTO) 0.1 (0.0-0.4); EOSINOPHILS % 3.8 % (0.0-6.0); HEMOGLOBIN 8.4 g/dL (14.0-18.0); LYMPHOCYTES # (AUTO) 0.6 (1.0-3.2); MEAN CORPUSCULAR HEMOGLOBIN 30.4 pg (28-32); MEAN CORPUSCULAR VOLUME 101.4 fL (81-99); MONOCYTES # (AUTO) 0.5 (0.2-0.8); MONOCYTES % 12.6 % (4.4-11.3); NEUTROPHILS # (AUTO) 2.5 (2.1-6.9); NEUTROPHILS % 67.5 % (38.7-80.0); PLATELET COUNT 80 x10e3/uL (140-360); RED BLOOD COUNT 2.76 x10e6/uL (4.3-5.7); RED CELL DISTRIBUTION WIDTH 21.8 % (11.7-14.4)
[2019-11-29 05:17] LABS: ALANINE AMINOTRANSFERASE 20 IU/L (0-55); ALBUMIN 2.1 g/dL (3.5-5.0); ALBUMIN/GLOBULIN RATIO 0.7 (0.8-2.0); ALKALINE PHOSPHATASE 72 IU/L (40-150); ANION GAP 8.7 mmol/L (8-16); BLOOD UREA NITROGEN 11 mg/dL (7-26); BUN/CREATININE RATIO 13 (6-25); CALCIUM 7.7 mg/dL (8.4-10.2); CARBON DIOXIDE 18 mmol/L (22-29); CHLORIDE 119 mmol/L (98-107); CREATININE, SERUM 0.88 mg/dL (0.72-1.25); EST GLOMERULAR FILTRATION RATE > 60 ML/MIN (60-); GLUCOSE 95 mg/dL (74-118); POTASSIUM 4.7 mmol/L (3.5-5.1); SODIUM 141 mmol/L (136-145)
--- NOTE | 2019-11-29 06:30 | NUR ---
Patient resting in bed with call light within reach. No issues or concerns noted.
[2019-11-29] MEDS: SPIRONOLACTONE 25 MG TAB PO SCH (07:30)
[2019-11-29] MEDS: PROPRANOLOL HCL 10 MG TAB PO SCH ×2 (07:30→17:00)
[2019-11-29] MEDS: ALLOPURINOL 100 MG TAB PO SCH ×2 (07:30→17:00)
[2019-11-29] MEDS: PANTOPRAZOLE 40 MG 10ML VIAL IV SCH ×2 (07:44→21:08)
[2019-11-29] MEDS ORDERED: BUPIVACAINE 0.5%/EPI 30 ML SDV INJ ONE (09:21)
--- NOTE | 2019-11-29 09:29 | NUR ---
PT RESTING IN BED. PT TO GO FOR PROCEDURE @1030. POSSIBLY TRANS TO ICU. STABLE AT THIS TIME
--- NOTE | 2019-11-29 10:24 | NUR ---
PT LKEFT UNIT FOR PROCEDURE. VS STABLE.
[2019-11-29] MEDS ORDERED: FENTANYL CITRATE/PF 100MCG/2 ML INJ ONE (13:47)
[2019-11-29] MEDS ORDERED: ETOMIDATE 2 MG/ML 10 ML INJ IV ONE (14:04)
[2019-11-29] MEDS ORDERED: PHENYLEPHRINE HCL 1% 10 MG/ML VIAL ONE (14:04)
[2019-11-29] MEDS ORDERED: ROCURONIUM BROMIDE 10 MG/ML 5ML VIAL IV ONE (14:04)
[2019-11-29] MEDS ORDERED: ONDANSETRON HCL INJ 2MG/ML 2ML 2 MG/ML VIAL ONE (14:04)
[2019-11-29] MEDS ORDERED: SEVOFLURANE INHAL SOLN 250 ML PEN BTL ONE (14:04)
[2019-11-29] MEDS ORDERED: DEXAMETHASONE SOD PHOS INJ 4 MG/ML VIAL ONE (14:04)
[2019-11-29] MEDS ORDERED: CEFOXITIN SOD 1 GM VIAL ONE (14:04)
[2019-11-29] MEDS ORDERED: EPHEDRINE SULFATE INJ 50 MG/ML VIAL ONE (14:04)
[2019-11-29] MEDS ORDERED: LIDOCAINE HCL 2% LOCAL INJ 5 ML SDV VIAL INJ ONE (14:04)
[2019-11-29] MEDS ORDERED: SUGAMMADEX SODIUM 200 MG/2 ML VIAL IV ONE (14:25)
[2019-11-29] MEDS ORDERED: HYDROMORPHONE 1MG/1ML INJ ONE (15:11)
[2019-11-29] MEDS ORDERED: CEFOXITIN 1GM/ D5W 50ML 50 ML IV SCH (16:00)
--- NOTE | 2019-11-29 16:03 | NUR ---
Nutrition Intervention Note RD Recommendation(s) for Physician: -Recommend advancing to GI soft diet when medically appropriate -If unable to advance diet soon, consider PN. Consult nutrition for recommendations Plan of Care: RD following, monitoring for tolerance and adequacy Nutrition reason for involvement: follow up RD Assessment 11/28: Follow up. Pt discussed during MDR. Pt out of room at time of visit, in OR for R colectomy 2/2 colonic tumor. Pt NPO or on liquid diet since admit, if unable to advance diet post operatively recommend PN for adequate nutrition. Chart reviewed. Will continue to monitor. (11/24/19) Pt is a 59 year old male admitted with GI bleed, cirrhosis, colon mass, and esophageal varices. Pt reports he is tolerating clear liquid diet. Prior to admission, pt reports eating 50% of meals for the past week. Pt stated he usually weighs 188 lbs, but was unsure of when he last weighed this amount. Pt currently has a weight of 177 lbs in chart. No N/V noted. Offered pt a nutrition supplement, but he declined at this time. Will continue to monitor Principal Problems/Diagnoses: GI bleed, cirrhosis, colon mass, and esophageal varices PMH: asthma, liver cirrhosis, gout GI: soft, non-tender, round abdomen, last recorded BM 11/28 Skin: intact Labs: 11/28: Na 141, K 4.7, BUN 11, Cr 0.88, Gluc 95 (11/23) Na 138, BUN 40, Cr 1.41, Glu 136, Ca 7.5, AST 67 Meds: protonix, lactulose, lasix, aldactone, allopurinol, octreotide, zofran Ht: 73 inches Wt: 177 lbs BMI: 23.4 kg/m2 IBW: 184 lbs Malnutrition Evaluation (11/24/19) The patient does not meet criteria for a specified degree of malnutrition at this time. Will re-evaluate at follow-up as appropriate. Nutrition Prescription (Diet Order): NPO Estimated Nutritional Needs: 4482-2461 calories/day (25-35 kcal/kg CBW) 80-120 g protein/day (1-1.5 g pro/kg CBW) Diet Adequacy: Not meeting calorie needs, Not meeting protein needs- NPO for surgery Tolerance: Tolerating PO- previously Diet Education Needs Assessment:Diet education not indicated, patient on temporary/transition diet. Nutrition Care Level: high Nutrition Diagnosis: Inadequate energy intake related to decreased ability to consume sufficient energy as evidenced by insufficient energy intake from diet compared to needs Goal: Patient will meet 75-100% of estimated needs by follow up Progress: not progressing Interventions: -fiber-modified diet, Commercial beverage, recommend modifications, collaboration with other providers Monitoring/Evaluation: -Total energy intake, Total protein intake, Modified diet, Liquid supplement, Weight change Signed: Isaura Cuadra RD, LD, [facility]
[2019-11-29] MEDS: CEFOXITIN SOD 1 GM in SODIUM CHLORIDE 0.9% 50ML 50 ML IV SCH ×2 (17:00→22:11)
--- NOTE | 2019-11-29 19:26 | NUR ---
Pt arrived to ICU from PACU at 1545 with packed midline abdominal incision with slight serosanguineous drainage. Dr. Wong gave orders for 1 Jumbo FFP and keep 1 jumbo on hold. Check INR and CBC and call MD with results. Orders given for IVF. Report given to Joao GONZALEZ.
[2019-11-29] MEDS ORDERED: SODIUM CHLORIDE 0.9% 250ML 250 ML ONE (20:01)
[2019-11-29] MEDS: LACTATED RINGER'S 1,000 ML INJ SCH (20:49)
[2019-11-29] MEDS: MEPERIDINE HCL INJ 25 MG/ML VIAL IV PRN (23:13)
[2019-11-29 23:40] LABS: BASOPHILS % 0.2 % (0.0-1.0); HEMATOCRIT 30.4 % (38.2-49.6); HEMOGLOBIN 9.1 g/dL (14.0-18.0); LYMPHOCYTES # (AUTO) 0.3 (1.0-3.2); MEAN CORPUSCULAR HEMOGLOBIN 29.7 pg (28-32); MEAN CORPUSCULAR HGB CONC 29.9 g/dL (31-35); MEAN CORPUSCULAR VOLUME 99.3 fL (81-99); MONOCYTES # (AUTO) 1.1 (0.2-0.8); MONOCYTES % 11.9 % (4.4-11.3); NEUTROPHILS # (AUTO) 7.8 (2.1-6.9); NEUTROPHILS % 84.6 % (38.7-80.0); PLATELET COUNT 104 x10e3/uL (140-360); RED BLOOD COUNT 3.06 x10e6/uL (4.3-5.7); RED CELL DISTRIBUTION WIDTH 21.4 % (11.7-14.4)
[2019-11-29 23:53] LABS: INR 1.34; PROTHROMBIN TIME 17.5 seconds (11.9-14.5)
[2019-11-30] VITALS (15 sets, daily range): BP systolic 107–168; BP diastolic 47–72
[2019-11-30] MEDS: OCTREOTIDE ACETATE 500 MCG in SODIUM CHLORIDE 0.9% 250ML 250 ML IV SCH ×4 (02:00→23:00)
[2019-11-30] MEDS ORDERED: MEPERIDINE HCL INJ 50 MG/ML INJ IV ONE (02:30)
[2019-11-30] MEDS ORDERED: LACTATED RINGER'S 500 ML IV ONE ×3 (02:30→07:30)
[2019-11-30] MEDS ORDERED: SODIUM CHLORIDE 0.9% 250ML 250 ML ONE (02:58)
[2019-11-30] MEDS ORDERED: MEPERIDINE HCL INJ 25 MG/ML VIAL ONE (03:20)
[2019-11-30] MEDS ORDERED: LACTATED RINGER'S 500 ML IV SCH ×2 (03:30→17:45)
[2019-11-30] MEDS: CEFOXITIN SOD 1 GM in SODIUM CHLORIDE 0.9% 50ML 50 ML IV SCH ×4 (04:00→23:00)
[2019-11-30 06:32] LABS: BASOPHILS % 0.2 % (0.0-1.0); HEMATOCRIT 26.5 % (38.2-49.6); HEMOGLOBIN 7.9 g/dL (14.0-18.0); LYMPHOCYTES # (AUTO) 0.3 (1.0-3.2); LYMPHOCYTES % 4.9 % (18.0-39.1); MEAN CORPUSCULAR HGB CONC 29.8 g/dL (31-35); MEAN CORPUSCULAR VOLUME 100.8 fL (81-99); MONOCYTES # (AUTO) 0.7 (0.2-0.8); MONOCYTES % 10.3 % (4.4-11.3); NEUTROPHILS # (AUTO) 5.4 (2.1-6.9); NEUTROPHILS % 84.4 % (38.7-80.0); PLATELET COUNT 82 x10e3/uL (140-360); RED BLOOD COUNT 2.63 x10e6/uL (4.3-5.7); RED CELL DISTRIBUTION WIDTH 21.5 % (11.7-14.4)
[2019-11-30 06:55] LABS: ALBUMIN 2.2 g/dL (3.5-5.0); ALBUMIN/GLOBULIN RATIO 0.7 (0.8-2.0); CALCIUM 7.5 mg/dL (8.4-10.2); CREATININE, SERUM 1.29 mg/dL (0.72-1.25)
[2019-11-30] MEDS: LACTATED RINGER'S 1,000 ML INJ SCH ×3 (07:23→18:44)
--- NOTE | 2019-11-30 07:24 | NUR ---
Notified Dr Wong of pt's low urine output, pain10/10.he ordered 500mL LR bolus,50mg Demerol ivx1, and to give the second FFP. Dr Valero aware of the low urine output as well, said he will talked to DR. Scott for possible consultation of a pressure welder. FFP given x2. received second order for 500mL/bolus per DR Wong. pt's stable,no sign of bleeding report given to the oncoming RN. pt resting will continue to monitor
[2019-11-30] MEDS: MEPERIDINE HCL INJ 25 MG/ML VIAL IV PRN ×2 (07:33→20:59)
[2019-11-30] MEDS: SODIUM CHLORIDE 0.9% 250ML IRRIG IR SCH ×4 (08:00→23:27)
[2019-11-30] MEDS ORDERED: ALBUMIN 25% 25GM 100ML 0.25 GM/ML BTL IV ONE ×2 (08:15→20:00)
[2019-11-30] MEDS: SPIRONOLACTONE 25 MG TAB PO SCH (08:51)
[2019-11-30] MEDS: PROPRANOLOL HCL 10 MG TAB PO SCH ×2 (08:51→16:14)
[2019-11-30] MEDS: ALLOPURINOL 100 MG TAB PO SCH ×2 (08:51→16:14)
[2019-11-30] MEDS: PANTOPRAZOLE 40 MG 10ML VIAL IV SCH ×2 (09:00→20:12)
--- NOTE | 2019-11-30 10:20 | NUR ---
LR bolus given this AM. Albumin given per Dr. Denise dukes's order. Dr. Denise Dukes and Dr. Ruvalcaba informed of new consult. Per dr. Wong pt going back to OR for second look and possible interventions. Pt consented for procedure, at bedside. OR and anesthesia at bedside.
--- NOTE | 2019-11-30 10:23 | Consultation ---
DATE OF CONSULTATION: 11/30/2019 Pulmonary Critical Care Consultation CHIEF COMPLAINT: Cirrhosis, rise in creatinine, and recent hemicolectomy. HISTORY OF PRESENT ILLNESS: The patient is a 59-year-old man. He has a history of cirrhosis. He was admitted directly from Dr. Salinas's office with a low blood count and some lower GI bleeding. He was subsequently found to have a colon mass. Yesterday, he underwent a right-sided hemicolectomy. He still has some obtundation. Apparently, he may also have some continued bleeding. He is not urinating well and his creatinine has increased. PAST SURGICAL HISTORY: 1. Status post colectomy as noted above. 2. Status post L4-L5 laminectomy. 3. Status post tonsillectomy. PAST MEDICAL HISTORY: 1. Asthma. 2. Cirrhosis. 3. Gout. SOCIAL HISTORY: The patient was a prior drinker. He is not a smoker. ALLERGIES: NO KNOWN DRUG ALLERGIES. FAMILY HISTORY: Family history is noncontributory. REVIEW OF SYSTEMS: The patient is somnolent, but arousable. He does not have headache. There is no fever. He has no chest pain. He does not have shortness of breath. He does have some abdominal distention and pain. He has some leg edema. PHYSICAL EXAMINATION: VITAL SIGNS: The blood pressure is 168/72, saturation is 99%. HEENT: No facial swelling or erythema. CARDIAC: Reveals regular rate and rhythm with normal S1 and S2. LUNGS: Auscultation of lungs shows decreased breath sounds at the bases. There is no wheezing. ABDOMEN: Soft. There is some distention and possible ascites. There is also a bandage from the recent surgery. EXTREMITIES: There is 2 to 3+ leg edema. NEUROLOGIC: He has decreased mental status and increased somnolence, but is arousable. LABORATORY DATA: BUN to creatinine ratio is 16 to 1.29, and the CO2 is 16. Total bilirubin is 7.2 and the albumin is 2.2. The INR is 1.34 and the platelet count is 82. Hemoglobin is 7.9. IMPRESSION: 1. Cirrhosis and portal hypertension. 2. Hepatic encephalopathy. 3. Hepatorenal syndrome type 2. 4. Recent hemicolectomy for colon cancer. 5. Anemia secondary to acute blood loss. 6. Remote history of asthma. PLAN: 1. Continue octreotide. 2. Albumin as needed for hepatorenal syndrome. 3. Consider low-dose aldactone. 4. Continue to monitor blood counts and transfuse as necessary. 5. Consider lactulose or rifaximin depending on agreement of General Surgery. 6. Continue oxygen. MD TOO Ramos/GÉNESISL /[id number]
[2019-11-30] MEDS ORDERED: SUGAMMADEX SODIUM 200 MG/2 ML VIAL IV ONE (11:17)
[2019-11-30 12:36] LABS: BAND NEUTROPHILS % (MANUAL) 11 %; LYMPHOCYTES % (MANUAL) 3 % (19-48); METAMYELOCYTES % (MANUAL) 2 % (0-0); MONOCYTES % (MANUAL) 9 % (3.4-9.0); MYELOCYTES % (MANUAL) 1 % (0-0); NEUTROPHILS % (MANUAL) 74 % (40-74)
[2019-11-30 12:38] LABS: ANISOCYTOSIS SLIGHT; HYPOCHROMASIA SLIGHT
[2019-11-30 12:39] LABS: PLATELET MORPHOLOGY COMMENT NORMAL
[2019-11-30 12:40] LABS: PLATELET ESTIMATE MODERATELY DECREASED
[2019-11-30] MEDS ORDERED: FENTANYL CITRATE/PF 100MCG/2 ML INJ ONE ×2 (13:49→14:14)
[2019-11-30] MEDS ORDERED: ONDANSETRON HCL INJ 2MG/ML 2ML 2 MG/ML VIAL ONE ×2 (15:20→18:29)
[2019-11-30] MEDS ORDERED: METOCLOPRAMIDE HCL 10 MG/2ML VIAL ONE (15:25)
--- NOTE | 2019-11-30 15:29 | Operative Report ---
DATE OF PROCEDURE: 11/30/2019 SURGEON: William Wong MD PREOPERATIVE DIAGNOSIS: Intraabdominal bleeding from liver cirrhosis with coagulopathy. POSTOPERATIVE DIAGNOSIS: Intraabdominal bleeding from liver cirrhosis with coagulopathy. OPERATIVE PROCEDURE: Second-look laparotomy, removal of packing. ANESTHESIA: General. INDICATIONS: The patient is a 59-year-old male with history of colon cancer and liver cirrhosis, who underwent right colectomy yesterday with intraabdominal bleeding from the liver area. Perihepatic packing was carried out for bleeding control. After 24 hours, resuscitation with blood products, the patient was returned to the OR for second-look laparotomy and possible controlled bleeding. PROCEDURE FINDINGS: Hemostasis was achieved in the liver area after packings removed. DESCRIPTION OF PROCEDURE: The patient was brought to the OR and intubated, abdomen was prepped with Betadine and draped in sterile fashion. The previous midline incision was reopened through the fascia. Entering the peritoneal cavity, the area of the right upper quadrant, where the packing was done was observed. A large amount of ascitic fluid was encountered, which was light and serosanguineous in nature. The suction removed this ascites. We then proceeded to remove the packing from the liver area. Hemostasis achieved. There was no evidence of continued bleeding at this point. Irrigation then carried out in the peritoneal cavity. The previous right colon anastomosis was noted to be intact. We then proceeded to close the abdomen approximating the fascia with a running 0-PDS and 0-Vicryl. Skin was closed with lyndsey. The patient was extubated and transported to the recovery room in guarded condition. BLOOD LOSS: 5 mL. William Wong MD DNL/MODL /[id number]
[2019-11-30] MEDS ORDERED: ALBUMIN 25% 25GM 100ML 100 ML IV ONE ×2 (18:15→20:00)
[2019-11-30] MEDS ORDERED: SEVOFLURANE INHAL SOLN 250 ML PEN BTL ONE (18:29)
[2019-11-30] MEDS ORDERED: LIDOCAINE HCL 2% LOCAL INJ 5 ML SDV VIAL INJ ONE (18:29)
[2019-11-30] MEDS ORDERED: CEFAZOLIN SOD 1 GM VIAL ONE (18:29)
[2019-11-30] MEDS ORDERED: LIDOCAINE HCL 2% JELLY 5 ML TUBE ONE (18:29)
[2019-11-30] MEDS ORDERED: ROCURONIUM BROMIDE 10 MG/ML 5ML VIAL IV ONE (18:29)
[2019-11-30 20:40] LABS: CALCIUM 7.6 mg/dL (8.4-10.2); CREATININE, SERUM 1.74 mg/dL (0.72-1.25)
--- NOTE | 2019-11-30 20:53 | NUR ---
Read BMP results to Dr. Ruvalcaba per MD request. MD says he will see the patient tonight. No orders received.
--- NOTE | 2019-11-30 22:05 | NUR ---
Dr. Wong aware of low urine output and current VS. New orders received.
[2019-11-30] MEDS ORDERED: LACTATED RINGER'S 500 ML INJ ONE (22:15)
--- NOTE | 2019-11-30 23:07 | NUR ---
Dr. Ruvalcaba at bedside rounding. New orders received. Addendum: 11/30/19 at 2308 by Rosalina Quigley RN MD aware of VS and low urine output.
[2019-12-01] VITALS (8 sets, daily range): BP systolic 110–137; BP diastolic 56–83
[2019-12-01] MEDS: SODIUM BICARBONATE 8.4% SYRING 150 ML in DEXTROSE 5% 1,000 ML IV SCH ×2 (00:17→17:02)
--- NOTE | 2019-12-01 02:26 | Consultation ---
DATE OF CONSULTATION: 11/30/2019 Nephrology Consultation Note REASON FOR CONSULTATION: Acute kidney injury, decreased urine output. HISTORY OF PRESENT ILLNESS: This is a 59-year-old male with multiple comorbidities. Of note, he has a history of liver cirrhosis, history of count asthma. He came in from a direct admission from Dr. Salinas's office due to low blood count and some lower GI bleed and found to have a colon mass, in which he underwent a right-sided hemicolectomy. Postoperatively, the patient was doing well, but had some evidence of continued bleeding requiring to go back to the OR for additional hemostasis. Nephrology consulted for underlying acute kidney injury and decreased urine output. The patient denies any history of any renal issues, no history of any [id number] medications. He is doing no NSAIDs, no other supplements. In reviewing his chart, the patient had evidence of hypotension. Of note, I saw low blood pressure systolically in the 90s. There is no evidence of any nephrotoxic agents given. No contrast induced. The patient was evaluated at bedside with the nursing staff. The patient's urine output has declined tremendously. REVIEW OF SYSTEMS: Pertinent positives, rectal bleeding. The rest of 14-point review of systems have been reviewed with the patient and are negative. ALLERGIES: NO KNOWN DRUG ALLERGIES. HOME MEDICATIONS: 1. Ascorbic acid. 2. Colace. 3. ferrous sulfate. 4. Allopurinol. 5. Protonix. 6. Propranolol. 7. Spironolactone. PAST MEDICAL HISTORY: He has a history of liver cirrhosis, recent status post right-sided hemicolectomy and a cecal mass. PAST SURGICAL HISTORY: Status post right-sided hemicolectomy, cecal mass . He has a history of colectomy, L4-L5 laminectomy, and status post tonsillectomy. FAMILY HISTORY: Hypertension, diabetes. SOCIAL HISTORY: No drugs. Does not smoke. Prior history of drinking. LABORATORY DATA: White count noted as 6.3, hemoglobin 7.9, hematocrit 26.5, platelets of 82. Coagulation PT 17, INR 1.34, PTT 33. Chemistry, sodium 140, potassium 5, chloride 118, bicarbonate 15, anion gap of 12. BUN 22, creatinine on admission of 1.52 down trended as low as 0.89, now up trended to 1.29 and also now 1.74. Calcium is 7.6, total bilirubin 7.2. AST 39, ALT 20, troponins 0.016, albumin 2.2. Coronavirus test is negative. IMAGING STUDIES: Abdominal ultrasound shows a left kidney 10.8 cm, right kidney 10.2 cm. No hydronephrosis. PHYSICAL EXAMINATION: VITAL SIGNS: Temperature is 98.1, pulse 89, respiratory rate 16, blood pressure 118/61, pulse ox 95% on 2 L nasal cannula. GENERAL: No acute distress. Alert and oriented x3, cooperative on examination, has an NG tube. PULMONARY: Clear to auscultation bilaterally. No wheezing, rales, or rhonchi. No crackles appreciated. CARDIOVASCULAR: Positive S1, S2. No murmurs, rubs, or gallops. ABDOMEN: Soft, nondistended, and nontender to palpation. Bowel sounds present. MUSCULOSKELETAL: Strength is 5/5 throughout. No evidence of any muscle deficits on examination. No weakness appreciated. SKIN: Intact. Warm to touch. Good cap refill. PSYCHIATRIC: Normal affect and mood. EXTREMITIES: No edema. Good range of motion throughout. IMPRESSION: 1. Acute kidney injury, likely underlying acute tubular necrosis from hypotension. 2. Status post right hemicolectomy from a colon mass. 3. Anemia. 4. Concerns for hepatorenal syndrome with underlying liver cirrhosis. PLAN: At this time, his urine output is 0 recorded with an indwelling Farooq catheter. Likely, the patient has underlying ATN from underlying hypotension, also could be from underlying hepatorenal syndrome. Urine electrolyte has been ordered if able to collect. He will be on albumin 25 g IV q.6 hours x8 doses. He is n.p.o., unable to give oral midodrine at this time. He is acidotic. We will put him on a D5 with 3 amps of sodium bicarbonate at 75 mL/h. He is already on an octreotide drip. I will order labs for the morning. He had an abdominal ultrasound ready and the kidney size seems to be very appropriate and also there is no evidence of any obstruction or hydronephrosis. Once again, this is likely to be ATN and/or could be also component of hepatorenal syndrome type 1 due to his underlying liver cirrhosis. Otherwise, we will continue to follow. Jiries S Dahu, MD JSD/GÉNESISL /[id number]
[2019-12-01] MEDS: SODIUM CHLORIDE 0.9% 250ML IRRIG IR SCH ×6 (04:22→23:52)
[2019-12-01] MEDS: CEFOXITIN SOD 1 GM in SODIUM CHLORIDE 0.9% 50ML 50 ML IV SCH ×4 (04:22→22:02)
[2019-12-01 05:38] LABS: BASOPHILS % 0.1 % (0.0-1.0); EOSINOPHILS % 0.1 % (0.0-6.0); HEMATOCRIT 24.6 % (38.2-49.6); HEMOGLOBIN 7.3 g/dL (14.0-18.0); LYMPHOCYTES # (AUTO) 0.5 (1.0-3.2); LYMPHOCYTES % 6.2 % (18.0-39.1); MEAN CORPUSCULAR HEMOGLOBIN 29.9 pg (28-32); MEAN CORPUSCULAR HGB CONC 29.7 g/dL (31-35); MEAN CORPUSCULAR VOLUME 100.8 fL (81-99); MONOCYTES % 11.8 % (4.4-11.3); NEUTROPHILS # (AUTO) 6.9 (2.1-6.9); PLATELET COUNT 57 x10e3/uL (140-360); RED BLOOD COUNT 2.44 x10e6/uL (4.3-5.7); RED CELL DISTRIBUTION WIDTH 20.9 % (11.7-14.4)
[2019-12-01 06:06] LABS: ALBUMIN 2.3 g/dL (3.5-5.0); ALBUMIN/GLOBULIN RATIO 0.9 (0.8-2.0); ANION GAP 12.6 mmol/L (8-16); CALCIUM 7.4 mg/dL (8.4-10.2); CREATININE, SERUM 4.87 mg/dL (0.72-1.25); POTASSIUM 4.6 mmol/L (3.5-5.1)
[2019-12-01] MEDS: ALBUMIN 25% 25GM 100ML 0.25 GM/ML BTL IV SCH ×3 (06:17→19:31)
[2019-12-01 07:36] LABS: EOSINOPHIL SMEAR,URINE NONE SEEN (NONE SEEN)
[2019-12-01] MEDS: SPIRONOLACTONE 25 MG TAB PO SCH (09:00)
[2019-12-01] MEDS: ALLOPURINOL 100 MG TAB PO SCH ×2 (09:00→17:00)
[2019-12-01] MEDS: MEPERIDINE HCL INJ 25 MG/ML VIAL IV PRN (09:22)
[2019-12-01] MEDS: PANTOPRAZOLE 40 MG 10ML VIAL IV SCH ×2 (09:25→20:53)
[2019-12-01 10:17] LABS: CREATININE,URINE RANDOM 183.97 mg/dL (63-166); SODIUM,URINE 21 mmol/L
--- NOTE | 2019-12-01 10:56 | Diagnostic Imaging Report ---
EXAM: Renal Ultrasound INDICATION: ^POST OP RENAL FAILURE ^[id number] ^[id number] COMPARISON: None TECHNIQUE: Transverse and longitudinal images of the kidneys and bladder were obtained. FINDINGS: Right Kidney: Length: 9.9 cm Appearance: Normal echogenicity. Collecting system: No hydronephrosis Stones: None Cyst/Mass: None Left Kidney: Length: 10.7 cm Appearance: Normal echogenicity. Collecting system: No hydronephrosis Stones: None Cyst/Mass: None Bladder: Not well visualized. Incidental note made of nodular liver surface contour consistent with hepatic cirrhosis. Small volume abdominal ascites. IMPRESSION: No hydronephrosis or renal calculi. Hepatic cirrhosis. Small volume ascites. Signed by: Elroy Olsen MD on 12/01/2019 10:52 AM
[2019-12-01] MEDS: PROPRANOLOL HCL 10 MG TAB PO SCH (10:57)
[2019-12-01 11:11] LABS: ANION GAP 11.6 mmol/L (8-16); CREATININE, SERUM 1.84 mg/dL (0.72-1.25); POTASSIUM 4.6 mmol/L (3.5-5.1)
[2019-12-01] MEDS ORDERED: ADENOSINE 6 MG/2 ML VIAL IV NR (11:15)
[2019-12-01 11:32] LABS: ANISOCYTOSIS MODERATE; BAND NEUTROPHILS % (MANUAL) 2 %; LYMPHOCYTES % (MANUAL) 6 % (19-48); MONOCYTES % (MANUAL) 11 % (3.4-9.0); MYELOCYTES % (MANUAL) 2 % (0-0); NEUTROPHILS % (MANUAL) 79 % (40-74); PLATELET ESTIMATE MARKEDLY DECREASED; PLATELET MORPHOLOGY COMMENT NORMAL; RBC MORPHOLOGY COMMENT ABNORMAL
[2019-12-01 11:33] LABS: OVALOCYTES FEW
--- NOTE | 2019-12-01 11:36 | NUR ---
Pt with SVT max 170 bpm. Pt has been given his PO inderal. Dr Segovia has been in with patient. HR 150, BP 137/71. Adenosine 6mg IVP x1 ordered and given at this time. Pt and spouse educated, defib attached and monitoring for med administration. No complications noted.
[2019-12-01] MEDS: OCTREOTIDE ACETATE 500 MCG in SODIUM CHLORIDE 0.9% 250ML 250 ML IV SCH ×2 (11:51→21:55)
[2019-12-01] MEDS ORDERED: SODIUM CHLORIDE 0.9% 250ML 250 ML ONE (12:10)
[2019-12-01] MEDS ORDERED: METOPROLOL TARTRATE INJ 1 MG/ML VIAL IV ONE (17:15)
--- NOTE | 2019-12-01 17:15 | NUR ---
DR. MARCUS ROUNDED TO CHECK ON PATIENT, RECEIVED ORDERS TO STOP PROPRANOLOL AND TO CHANGE TO LOPRESSOR IV 5MG Q 12 HOURS GIVE FIRST DOSE NOW.
--- NOTE | 2019-12-01 18:14 | Consultation ---
DATE OF CONSULTATION: 12/01/2019 Cardiology Consultation REASON FOR CONSULTATION: SVT. HISTORY OF PRESENT ILLNESS: Mr. Lemus is a 59-year-old man with history of asthma, liver cirrhosis, and gout, who presents with GI bleeding, requiring right-sided hemicolectomy. Postoperatively, he remains with NG tube in place, increased p.o. intake. His Inderal has been held as a result, and on telemetry, he has been observed to have sinus tachycardia. Today, however, he had a notable increase in his heart rate of sudden onset to the 160 with narrow complex regular tachycardia, we have been asked to evaluate. The patient denies any loss of consciousness, but does feel some palpitations and mild worsening of his dyspnea. He denies any chest discomfort. He denies any prior known cardiac history. REVIEW OF SYSTEMS: A 12-system review is negative except for as noted above. PAST MEDICAL HISTORY: Remarkable for asthma, liver cirrhosis, and gout. SURGICAL HISTORY: History of laminectomy and tonsillectomy. SOCIAL HISTORY: Former alcohol use. Denies drug or tobacco use. ALLERGIES: NO KNOWN DRUG ALLERGIES. FAMILY HISTORY: Noncontributory. PHYSICAL EXAMINATION: VITAL SIGNS: Tachycardic in the 160s on telemetry, regular narrow complex tachycardia, respiratory rate 12, O2 saturation 99% on nasal cannula, and blood pressure 130/80. GENERAL: Chronically ill-appearing, alert, oriented. NECK: No JVD or carotid bruits. HEENT: NG tube in place. CHEST: Decreased breath sounds in bilateral bases. CARDIOVASCULAR: Regular rate and rhythm. Tachycardic. Normal S1 and S2. No S3. No S4. Systolic ejection murmur /6. ABDOMEN: Distended. Dressings in place. EXTREMITIES: With 1+ edema to both lower extremities. STUDIES: Reviewed. Hemoglobin 7.9, platelets 82. INR 1.3. Sodium 140, potassium 4, chloride 118, bicarbonate 15, BUN 22, and creatinine trending up. Coronavirus-19, negative test. ASSESSMENT AND PLAN: 1. acute tubular necrosis/acute kidney injury. 2. Status post right hemicolectomy for colon mass. 3. Anemia and thrombocytopenia. 4. Liver cirrhosis. 5. Asthma. 6. Supraventricular tachycardia. RECOMMENDATIONS: 1. Obtain echocardiogram. 2. Please keep on telemetry. 3. Adenosine 6 mg IV push. 4. Resume beta velma. 5. Hydration upon bicarb drip per Nephrology. We will follow. Please call with any questions, . Thank you for the opportunity to participate in the care of this pleasant gentleman. MD STACEY Valentino/GÉNESISL /[id number]
[2019-12-01] MEDS: METOPROLOL TARTRATE INJ 1 MG/ML VIAL IV SCH (20:15)
[2019-12-01 22:00] LABS: ANION GAP 10.5 mmol/L (8-16); CALCIUM 8.1 mg/dL (8.4-10.2); CREATININE, SERUM 1.76 mg/dL (0.72-1.25); POTASSIUM 4.5 mmol/L (3.5-5.1)
--- NOTE | 2019-12-01 22:16 | NUR ---
CALLED AND SPOKE TO DR WAKEFIELD REGARDING LAST BMP RESULT. NO NEW ORDER RECEIVED.
[2019-12-02] VITALS (8 sets, daily range): BP systolic 109–130; BP diastolic 62–78
--- NOTE | 2019-12-02 00:31 | Progress Note ---
DATE: 12/01/2019 Nephrology Progress Note SUBJECTIVE: The patient was seen and evaluated early this morning around 12 p.m. The patient was doing well with no complaints. This morning, he had an episode of tachycardia prompting Cardiology consultation. The patient was given stat adenosine with much improvement of his heart rate. From a renal standpoint, he has good urine output. PHYSICAL EXAMINATION: VITAL SIGNS: Temperature is 98.8, pulse 88, respiratory rate 16, blood pressure is 127/83, and pulse ox 98% on 2 L cannula. GENERAL: Not in acute distress. Alert and oriented x3. Cooperative on examination. HEENT: Head; normocephalic, atraumatic. Eyes; pupils are equal, round, and reactive to light bilaterally. Extraocular movements intact bilaterally. Throat; no evidence of erythema or exudates in the posterior pharynx. Has poor dentition. NECK: Supple. Good range of motion. PULMONARY: Clear to auscultation bilaterally. No wheezing, no rales, no rhonchi, no crackles appreciated. CARDIOVASCULAR: Positive S1 and S2. No murmurs, rubs, or gallops appreciated. ABDOMEN: Soft, nondistended, and nontender to palpation. Bowel sounds present. MUSCULOSKELETAL: Strength is 5/5 throughout. No evidence of any muscle deficits on examination. No weakness appreciated. NEUROLOGIC: Cranial nerve II through XII grossly intact. No evidence of any neurological deficits on exam. SKIN: Intact. Warm to touch. Good cap refill. PSYCHIATRIC: Normal affect and mood. EXTREMITIES: No edema. Good range of motion throughout. LABORATORY DATA: Show white count 9.5, hemoglobin 7.3, hematocrit is 24.6, platelets of 57. Chemistry; sodium 141, potassium 4.5, chloride 115, bicarb 20, anion gap of 10, BUN is 27, creatinine down trending to 1.76 this evening. His calcium is 8.1. Urinalysis; urine eosinophils none. Urine sodium 21. DIAGNOSTIC STUDIES: Renal ultrasound; right kidney 9.9 cm, left kidney 10.7 cm. No hydronephrosis or renal calculi. IMPRESSION: 1. Acute kidney injury, likely underlying acute tubular necrosis from hypotension. 2. Status post right hemicolectomy for colon mass. 3. Anemia. 4. Concerns for hepatorenal syndrome with underlying liver cirrhosis. PLAN: At this time, renal function has slightly improved. Urine output has much improved. Electrolytes are stable. Continue with albumin. Continue with D5 with 3 amps of sodium bicarb drip. He is still on octreotide drip. Repeat labs in the morning. Replace electrolytes accordingly. MD ALEXI Christian/LIOR /[id number]
[2019-12-02] MEDS: ALBUMIN 25% 25GM 100ML 0.25 GM/ML BTL IV SCH ×5 (01:00→23:57)
[2019-12-02] MEDS ORDERED: PHYTONADIONE 10 MG/ML AMP IV ONE (01:45)
[2019-12-02] MEDS ORDERED: SODIUM CHLORIDE 0.9% 100 ML ONE (01:59)
[2019-12-02] MEDS: METOPROLOL TARTRATE INJ 1 MG/ML VIAL IV SCH ×4 (03:26→20:20)
[2019-12-02] MEDS: CEFOXITIN SOD 1 GM in SODIUM CHLORIDE 0.9% 50ML 50 ML IV SCH ×4 (04:26→22:47)
[2019-12-02] MEDS: SODIUM CHLORIDE 0.9% 250ML IRRIG IR SCH ×6 (04:26→23:33)
[2019-12-02] MEDS: MEPERIDINE HCL INJ 25 MG/ML VIAL IV PRN ×3 (05:25→22:45)
[2019-12-02 05:29] LABS: BASOPHILS % 0.3 % (0.0-1.0); EOSINOPHILS # (AUTO) 0.1 (0.0-0.4); EOSINOPHILS % 1.7 % (0.0-6.0); HEMATOCRIT 21.9 % (38.2-49.6); LYMPHOCYTES # (AUTO) 0.4 (1.0-3.2); LYMPHOCYTES % 6.3 % (18.0-39.1); MEAN CORPUSCULAR HEMOGLOBIN 30.8 pg (28-32); MEAN CORPUSCULAR HGB CONC 29.7 g/dL (31-35); MEAN CORPUSCULAR VOLUME 103.8 fL (81-99); MONOCYTES # (AUTO) 0.8 (0.2-0.8); MONOCYTES % 10.8 % (4.4-11.3); NEUTROPHILS # (AUTO) 5.6 (2.1-6.9); NEUTROPHILS % 79.9 % (38.7-80.0); RED BLOOD COUNT 2.11 x10e6/uL (4.3-5.7); RED CELL DISTRIBUTION WIDTH 20.6 % (11.7-14.4)
[2019-12-02 05:47] LABS: ALBUMIN 3.2 g/dL (3.5-5.0); ALBUMIN/GLOBULIN RATIO 1.4 (0.8-2.0); ANION GAP 11.3 mmol/L (8-16); CREATININE, SERUM 1.8 mg/dL (0.72-1.25); POTASSIUM 4.3 mmol/L (3.5-5.1)
[2019-12-02] MEDS ORDERED: METOPROLOL TARTRATE INJ 1 MG/ML VIAL IV SCH (06:00)
[2019-12-02 06:01] LABS: HEMOGLOBIN 6.5 g/dL (14.0-18.0); PLATELET COUNT 48 x10e3/uL (140-360)
[2019-12-02] MEDS ORDERED: SODIUM CHLORIDE 0.9% 250ML 250 ML IV SCH (06:30)
[2019-12-02] MEDS: OCTREOTIDE ACETATE 500 MCG in SODIUM CHLORIDE 0.9% 250ML 250 ML IV SCH ×2 (08:37→22:33)
[2019-12-02] MEDS: SODIUM BICARBONATE 8.4% SYRING 150 ML in DEXTROSE 5% 1,000 ML IV SCH (08:37)
[2019-12-02] MEDS: SPIRONOLACTONE 25 MG TAB PO SCH (08:38)
[2019-12-02] MEDS: ALLOPURINOL 100 MG TAB PO SCH ×2 (08:38→16:47)
[2019-12-02] MEDS: PANTOPRAZOLE 40 MG 10ML VIAL IV SCH ×2 (09:15→20:20)
[2019-12-02 09:19] LABS: INR 1.61; PROTHROMBIN TIME 20.3 seconds (11.9-14.5)
[2019-12-02] MEDS ORDERED: SODIUM CHLORIDE 0.9% 250ML 250 ML ONE ×3 (11:35→20:39)
--- NOTE | 2019-12-02 11:38 | NUR ---
Abdominal dressing is demonstrating bloody ooze, this is new. The ngt drainage which was 100 ml since beginning of shift, is now not draining. Have spoken with Katy Wong and John Valero. Dr Valero has ordered to start carafate per ngt and Dr Wong agrees.
[2019-12-02 13:05] LABS: ANISOCYTOSIS MODERATE; BAND NEUTROPHILS % (MANUAL) 1 %; EOSINOPHILS % (MANUAL) 4 % (0-7); LYMPHOCYTES % (MANUAL) 1 % (19-48); MONOCYTES % (MANUAL) 3 % (3.4-9.0); NEUTROPHILS % (MANUAL) 91 % (40-74)
[2019-12-02 13:06] LABS: OVALOCYTES FEW; PLATELET ESTIMATE MARKEDLY DECREASED; PLATELET MORPHOLOGY COMMENT NORMAL; RBC MORPHOLOGY COMMENT ABNORMAL
[2019-12-02] MEDS: SUCRALFATE 1 GM/10 ML SUSP NG SCH ×3 (13:59→23:56)
--- NOTE | 2019-12-02 14:25 | NUR ---
Nutrition Intervention Note RD Recommendation(s) for Physician: - If pt remains NPO within 24hr, rec initiating central PN (30% dextrose, 10% AA) @50mL/hr, providing 1200mL total volume/day, 180g dextrose, 60g protein. Total kcal including lipids of 25g/ M,W,F 948kcal/day - Discontinue or decrease IVF if/when TPN initiated. - Check Mg and Phos daily with BMP if/when on TPN. Check TG weekly. Plan of Care: RD following, monitoring for tolerance and adequacy Nutrition reason for involvement: follow up RD Assessment 12/01: Follow up. Pt was sleeping during my visit. Pt was getting frozen plasma through IV. NGT to suction, with 100ml drainage since this AM. Currently NPO day 3. No BM or flatus recorded since 11/29. Recommend PN since pt has been NPO or on liquid diet since admission. Will continue to follow. 11/28: Follow up. Pt discussed during MDR. Pt out of room at time of visit, in OR for R colectomy 2/2 colonic tumor. Pt NPO or on liquid diet since admit, if unable to advance diet post operatively recommend PN for adequate nutrition. Chart reviewed. Will continue to monitor. (11/24/19) Pt is a 59 year old male admitted with GI bleed, cirrhosis, colon mass, and esophageal varices. Pt reports he is tolerating clear liquid diet. Prior to admission, pt reports eating 50% of meals for the past week. Pt stated he usually weighs 188 lbs, but was unsure of when he last weighed this amount. Pt currently has a weight of 177 lbs in chart. No N/V noted. Offered pt a nutrition supplement, but he declined at this time. Will continue to monitor Principal Problems/Diagnoses: GI bleed, cirrhosis, colon mass, and esophageal varices PMH: asthma, liver cirrhosis, gout GI: round, distended, tender abdomen, last recorded BM 11/28 Skin: intact Labs: 12/01 Cl 113 H, BUN 28 H, Creatinine 1.8 H, Glucose 128 H, Ca 8.0 L 11/28: Na 141, K 4.7, BUN 11, Cr 0.88, Gluc 95 (11/23) Na 138, BUN 40, Cr 1.41, Glu 136, Ca 7.5, AST 67 Meds: protonix, cefoxitin, metoprolol, octreotide acetate, sodium bicarbonate, albumin, Demerol Ht: 73 inches Wt: 177 lbs BMI: 23.4 kg/m2 IBW: 184 lbs Malnutrition Evaluation (11/24/19) The patient does not meet criteria for a specified degree of malnutrition at this time. Will re-evaluate at follow-up as appropriate. Nutrition Prescription (Diet Order): NPO Estimated Nutritional Needs: calories/day (25-35 kcal/kg CBW) 80-120 g protein/day (1-1.5 g pro/kg CBW) Diet Adequacy: Not meeting calorie needs, Not meeting protein needs Tolerance: N/A NPO Diet Education Needs Assessment: Diet education not indicated. Nutrition Care Level: high Nutrition Diagnosis: Inadequate energy intake related to decreased ability to consume sufficient energy as evidenced by insufficient energy intake from diet compared to needs Goal: Patient will meet 75-100% of estimated needs by follow up Progress: not progressing Interventions: Composition, Rate, Route, IVF Monitoring/Evaluation: Total energy intake, Total protein intake, Formula/Solution, IVF , Weight change Signed: Radha Perkins, MS, RD, LD
[2019-12-02] MEDS ORDERED: FUROSEMIDE INJ 10 MG/ML 4 ML VIAL IV ONE ×4 (16:00→18:30)
--- NOTE | 2019-12-02 19:28 | NUR ---
Intermittent low wall suction to the NGT is ordered by Dr Wong and Dr Becca Valero. The computer system does not give intermittent as an option. Reported off to Thais GONZALEZ has been notifed and report sheet on chart has listed this also.
[2019-12-03] VITALS (8 sets, daily range): BP systolic 113–146; BP diastolic 62–79
--- NOTE | 2019-12-03 00:15 | Progress Note ---
DATE: 12/02/2019 Cardiology Progress Note SUBJECTIVE: Nauseated today. Some abdominal discomfort. On telemetry, sinus rhythm, improved rate. OBJECTIVE: VITAL SIGNS: Temperature 98.2, heart rate 86, blood pressure 130/78, respiratory rate 19, O2 saturation 100%. GENERAL: In no acute distress, alert. NECK: No JVD. CHEST: Clear to auscultation. CARDIOVASCULAR: Regular rate and rhythm. Normal S1, S2. ABDOMEN: Dressings in place. Soft, distended. EXTREMITIES: 1+ edema. CARDIOVASCULAR MEDICATIONS: Reviewed. Metoprolol tartrate 5 mg IV q.6 hours, hydralazine 10 mg q.4 hours p.r.n., furosemide 20 mg q.3 hours, sodium bicarbonate drip. LABORATORY DATA: Studies reviewed. Sodium 141, potassium 4.3, creatinine 1.8, glucose 128. White blood cells 7, hemoglobin 6.5, platelets 48. INR 1.6. ASSESSMENT AND PLAN: A 59-year-old man with: 1. Supraventricular tachycardia. 2. Liver cirrhosis with colon mass status post surgery. 3. Anemia and bleed. RECOMMEND: 1. Continue IV metoprolol. 2. NG tube remains in place. 3. Volume optimization per Nephrology expertise. 4. Supportive transfusions as needed. Artem Flood MD AFV/MODL /[id number]
--- NOTE | 2019-12-03 00:35 | Progress Note ---
DATE: 12/02/2019 Nephrology Progress Note SUBJECTIVE: The patient is found to be anemic and thrombocytopenic, requiring blood products today. The patient has had minimal urine output today when I spoke to the nurse. PHYSICAL EXAMINATION: VITAL SIGNS: Temperature is 98.5, pulse 70, respirations 12, blood pressure 109/66, and pulse ox 100% on 2 L of nasal cannula. GENERAL: Not in acute distress. Alert and oriented x3. Cooperative on examination. HEENT: Head; normocephalic, atraumatic. Eyes; pupils are equal, round, and reactive to light bilaterally. Extraocular movements intact bilaterally. Throat; no evidence of erythema or exudates in the posterior pharynx. Has poor dentition. NECK: Supple. Good range of motion. PULMONARY: Clear to auscultation bilaterally. No wheezing, no rales, no rhonchi, no crackles appreciated. CARDIOVASCULAR: Positive S1 and S2. No murmurs, rubs, or gallops appreciated. ABDOMEN: Soft, nondistended, and nontender to palpation. Bowel sounds present. MUSCULOSKELETAL: Strength is 5/5 throughout. No evidence of any muscle deficits on examination. No weakness appreciated. NEUROLOGIC: Cranial nerve II through XII grossly intact. No evidence of any neurological deficits on exam. SKIN: Intact. Warm to touch. Good cap refill. PSYCHIATRIC: Normal affect and mood. EXTREMITIES: No edema. Good range of motion throughout. LABORATORY DATA: White count 7, hemoglobin 6.5, hematocrit is 21, platelets of 48. Chemistry; sodium is 141, potassium 4.3, chloride 113, bicarb 21, anion gap is 11, BUN is 28, creatinine is 1.8, calcium is 8. MICROBIOLOGY: None. IMAGING: None. IMPRESSION: 1. Acute kidney injury likely acute tubular necrosis from underlying hypotension, also concerns for hepatorenal syndrome. 2. Status post right hemicolectomy with colon mass. 3. Anemia, requiring blood products. 4. Thrombocytopenia. 5. Concerns for hepatorenal syndrome from underlying liver cirrhosis. PLAN: At this time from a renal standpoint, we are going to stop the D5 drip. His bicarbonate has much improved, plus he is getting significant amount of blood products today including blood transfusions and FFP including platelets, which we will go ahead and give Lasix 40 mg x2 doses after blood products have been given. Discussed plan of care with nursing staff, family, and patient at bedside. Get repeat labs in the morning. Urine output, we will monitor very closely. MD ALEXI Christian/LIOR /[id number]
[2019-12-03] MEDS ORDERED: PHYTONADIONE 10 MG/ML AMP IV ONE (02:30)
[2019-12-03] MEDS ORDERED: SODIUM CHLORIDE 0.9% 100 ML ONE (03:06)
[2019-12-03] MEDS: SODIUM CHLORIDE 0.9% 250ML IRRIG IR SCH ×5 (03:40→20:45)
[2019-12-03] MEDS: METOPROLOL TARTRATE INJ 1 MG/ML VIAL IV SCH ×4 (03:40→22:37)
[2019-12-03] MEDS: OCTREOTIDE ACETATE 500 MCG in SODIUM CHLORIDE 0.9% 250ML 250 ML IV SCH ×2 (04:00→22:36)
[2019-12-03] MEDS: CEFOXITIN SOD 1 GM in SODIUM CHLORIDE 0.9% 50ML 50 ML IV SCH ×4 (04:42→22:45)
[2019-12-03] MEDS: SUCRALFATE 1 GM/10 ML SUSP NG SCH ×3 (05:36→17:45)
[2019-12-03 06:04] LABS: BASOPHILS % 0.3 % (0.0-1.0); EOSINOPHILS # (AUTO) 0.2 (0.0-0.4); EOSINOPHILS % 3.1 % (0.0-6.0); HEMATOCRIT 25.1 % (38.2-49.6); HEMOGLOBIN 7.6 g/dL (14.0-18.0); LYMPHOCYTES # (AUTO) 0.5 (1.0-3.2); LYMPHOCYTES % 6.5 % (18.0-39.1); MEAN CORPUSCULAR HGB CONC 30.3 g/dL (31-35); MEAN CORPUSCULAR VOLUME 99.2 fL (81-99); MONOCYTES # (AUTO) 0.9 (0.2-0.8); NEUTROPHILS # (AUTO) 5.4 (2.1-6.9); NEUTROPHILS % 76.5 % (38.7-80.0); RED BLOOD COUNT 2.53 x10e6/uL (4.3-5.7); RED CELL DISTRIBUTION WIDTH 19.8 % (11.7-14.4)
[2019-12-03 06:21] LABS: INR 1.48; PROTHROMBIN TIME 18.9 seconds (11.9-14.5)
[2019-12-03 06:31] LABS: PLATELET COUNT 49 x10e3/uL (140-360)
[2019-12-03 06:40] LABS: ANION GAP 13.9 mmol/L (8-16); CALCIUM 8.6 mg/dL (8.4-10.2); CREATININE, SERUM 1.48 mg/dL (0.72-1.25); POTASSIUM 3.9 mmol/L (3.5-5.1)
--- NOTE | 2019-12-03 06:42 | NUR ---
called and spoke to dr Scott, platelet count this morning is 49; no new order obtained.
--- NOTE | 2019-12-03 09:27 | Progress Note ---
DATE: 12/03/2019 Cardiology Progress Note SUBJECTIVE: Abdominal bloating and discomfort. Denies chest pain or shortness of breath. No other complaints. OBJECTIVE: VITAL SIGNS: Temperature 98.3, heart rate 76, blood pressure 127/78, respiratory rate 15, and O2 saturation 100%. GENERAL: In mild distress, alert. NECK: No JVD. HEENT: NG tube in place. CHEST: Clear to auscultation, however, with decreased breath sounds at bilateral bases. CARDIOVASCULAR: Regular rate and rhythm. Normal S1 and S2. Systolic ejection murmur of 1/6. No S3. No S4. ABDOMEN: Distended. EXTREMITIES: With 1+ edema. CARDIOVASCULAR MEDICATIONS: Reviewed. Furosemide 20 mg q.3 hours, metoprolol tartrate 5 mg q.8 hours IV, spironolactone 25 mg daily, hydralazine 10 mg q.4 hours p.r.n. LABORATORY DATA: Studies reviewed. Potassium 3.9, creatinine 1.4. White blood cells 7, hemoglobin 7.6, platelets 49. INR 1.48. ASSESSMENT AND PLAN: A 59-year-old man with: 1. Supraventricular tachycardia, now improved on IV beta-velma. 2. Liver cirrhosis. 3. Anemia and thrombocytopenia. 4. Colon mass and GI bleed. RECOMMEND: 1. Continue supportive care with transfusions as needed. 2. Hold off on any anticoagulation. 3. Volume optimization underway, seems to be improving from a volume status. 4. Continue IV beta-blockers if the patient remains n.p.o. MD STACEY Valentino/LIOR /[id number]
[2019-12-03] MEDS: SPIRONOLACTONE 25 MG TAB PO SCH (10:06)
[2019-12-03] MEDS: PANTOPRAZOLE 40 MG 10ML VIAL IV SCH ×2 (10:06→21:55)
[2019-12-03] MEDS: MEPERIDINE HCL INJ 25 MG/ML VIAL IV PRN ×2 (10:06→20:43)
[2019-12-03] MEDS: ALLOPURINOL 100 MG TAB PO SCH ×2 (10:06→17:45)
[2019-12-03] MEDS ORDERED: BISACODYL 10 MG SUPP PR SCH (14:00)
[2019-12-03] MEDS ORDERED: BISACODYL 10 MG SUPP PR ONE (18:00)
--- NOTE | 2019-12-03 20:24 | Progress Note ---
DATE: 12/03/2019 SUBJECTIVE: The patient required 2 units of packed red blood cells yesterday. There is an NG tube in place with dark bilious drainage. The patient also has some ascites. There are no fevers. PHYSICAL EXAMINATION: VITAL SIGNS: Blood pressure is 130/79, saturation is 100% and the pulse is 69. HEENT: Shows no facial swelling or erythema. CARDIAC: Reveals regular rate and rhythm with normal S1 and S2. LUNGS: Auscultation of lungs shows decreased breath sounds at the bases. There is no wheezing. ABDOMEN: Soft, nontender. There is no rebound or guarding. EXTREMITIES: Shows some leg edema. LABORATORY DATA: BUN to creatinine ratio is 27 to 1.48, chloride is 111 and the carbon dioxide is 22. The white blood cell count is 7 and hemoglobin is 7.6. The platelet count is 49. IMPRESSION: 1. Cirrhosis and portal hypertension. 2. Hepatic encephalopathy. 3. Acute on chronic renal failure. 4. Recent hemicolectomy for colon cancer. 5. Anemia secondary to acute blood loss. PLAN: 1. Continue to monitor blood counts. 2. Continue NG tube. 3. Continue current regimen for his cirrhosis. 4. Continue oxygen. 5. Prognosis remains poor. Arun Dukes MD [facility]/MODL /[id number]
[2019-12-04] VITALS (7 sets, daily range): BP systolic 112–130; BP diastolic 63–78
[2019-12-04] MEDS: SODIUM CHLORIDE 0.9% 250ML IRRIG IR SCH ×6 (00:06→20:05)
--- NOTE | 2019-12-04 01:51 | Progress Note ---
DATE: 12/03/2019 Nephrology Progress Note SUBJECTIVE: The patient is doing a little better today with no complaints. He was evaluated early this afternoon. I spoke with the at bedside. His renal function improved. Urine output is much better. PHYSICAL EXAMINATION: VITAL SIGNS: Temperature is 98.7, pulse 88, respiratory rate is 12, blood pressure 124/74, pulse ox 95% on 2 L nasal cannula. He still has an NG tube. GENERAL: Not in acute distress, alert and oriented x3, cooperative on examination. HEENT: Head is normocephalic and atraumatic. Eyes; pupils are equal, round, and reactive to light bilaterally. Extraocular movements intact bilaterally. Throat; no evidence of erythema or exudates in the posterior pharynx. He has poor dentition. NECK: Supple. Good range of motion. PULMONARY: Clear to auscultation bilaterally. No wheezing. No rales. No rhonchi. No crackles appreciated. CARDIOVASCULAR: Positive S1 and S2. No murmurs, rubs, or gallops appreciated. ABDOMEN: Soft, nondistended, and nontender to palpation. Bowel sounds present. MUSCULOSKELETAL: Strength is 5/5 throughout. No evidence of any muscle deficits on examination. No weakness appreciated. NEUROLOGIC: Cranial nerve II through XII grossly intact. No evidence of any neurological deficits on exam. SKIN: Intact. Warm to touch. Good cap refill. PSYCHIATRIC: Normal affect and mood. EXTREMITIES: No edema. Good range of motion throughout. LABORATORY DATA: Labs show white count 7, hemoglobin 7.6, hematocrit is 25, platelets of 49. Chemistry; sodium 143, potassium 3.9, chloride 111, bicarb 22, anion gap of 13, BUN is 27, creatinine is 1.48, and calcium is 8.6. Urine eosinophils, no growth. IMAGING STUDIES: None new. IMPRESSION: 1. Acute kidney injury secondary to underlying acute tubular necrosis from hypotension-improving. 2. Status post right hemicolectomy for colon mass. 3. Anemia. 4. Thrombocytopenia. 5. Concerns for hepatorenal syndrome with underlying liver cirrhosis. PLAN: At this time, his renal function improved. Electrolytes are stable. Continue to monitor very closely. Get a.m. labs. His hemoglobin is much better. Platelets improved to 49. Continue same plan of care and monitor closely. MD ALEXI Christian/LIOR /[id number]
[2019-12-04] MEDS: MEPERIDINE HCL INJ 25 MG/ML VIAL IV PRN ×2 (04:00→20:05)
[2019-12-04] MEDS: METOPROLOL TARTRATE INJ 1 MG/ML VIAL IV SCH ×4 (04:55→21:00)
[2019-12-04] MEDS: CEFOXITIN SOD 1 GM in SODIUM CHLORIDE 0.9% 50ML 50 ML IV SCH ×4 (05:18→22:10)
[2019-12-04 06:23] LABS: BASOPHILS % 0.3 % (0.0-1.0); EOSINOPHILS # (AUTO) 0.1 (0.0-0.4); EOSINOPHILS % 1.6 % (0.0-6.0); HEMATOCRIT 27.1 % (38.2-49.6); HEMOGLOBIN 8.3 g/dL (14.0-18.0); LYMPHOCYTES # (AUTO) 0.6 (1.0-3.2); LYMPHOCYTES % 6.3 % (18.0-39.1); MEAN CORPUSCULAR HEMOGLOBIN 30.7 pg (28-32); MEAN CORPUSCULAR HGB CONC 30.6 g/dL (31-35); MEAN CORPUSCULAR VOLUME 100.4 fL (81-99); MONOCYTES # (AUTO) 1.1 (0.2-0.8); MONOCYTES % 12.9 % (4.4-11.3); NEUTROPHILS # (AUTO) 6.9 (2.1-6.9); NEUTROPHILS % 78.1 % (38.7-80.0); PLATELET COUNT 54 x10e3/uL (140-360); RED CELL DISTRIBUTION WIDTH 19.6 % (11.7-14.4)
[2019-12-04] MEDS: SUCRALFATE 1 GM/10 ML SUSP NG SCH ×4 (06:39→18:01)
[2019-12-04] MEDS: OCTREOTIDE ACETATE 500 MCG in SODIUM CHLORIDE 0.9% 250ML 250 ML IV SCH ×2 (06:39→17:35)
[2019-12-04 07:15] LABS: ALBUMIN 3.1 g/dL (3.5-5.0); ALBUMIN/GLOBULIN RATIO 1.2 (0.8-2.0); CALCIUM 8.7 mg/dL (8.4-10.2); CREATININE, SERUM 1.42 mg/dL (0.72-1.25)
[2019-12-04 08:03] LABS: INR 1.49
[2019-12-04 08:04] LABS: PARTIAL THROMBOPLASTIN TIME 44.4 seconds (23.8-35.5)
[2019-12-04] MEDS ORDERED: PHYTONADIONE 10 MG/ML AMP IV ONE (08:30)
[2019-12-04] MEDS ORDERED: PHYTONADIONE 10MG/ML 20 MG in SODIUM CHLORIDE 0.9% 50ML 50 ML IV ONE (08:45)
--- NOTE | 2019-12-04 08:58 | Diagnostic Imaging Report ---
EXAM: Abdomen 1 Views INDICATION: ^check ngtube placement ^[id number] ^0815 ^Y COMPARISON: None FINDINGS: Lines/tubes: 9 dictated 2's visualized in the abdomen. There is an overlying catheter in the left upper quadrant that extends outside the abdomen. Mild amount of stool in the colon. No dilated loops of small bowel. No renal calculi. No abnormal soft tissue masses. Mild degenerative changes in the lumbar spine and pelvis. Surgical clips overlying the pelvis. IMPRESSION: No visualized injury/O G-tube or Dobbhoff tube in the abdomen. Signed by: Dr. Rachelle Smith M.D. on 12/04/2019 8:54 AM
[2019-12-04] MEDS: ALLOPURINOL 100 MG TAB PO SCH ×2 (09:00→17:00)
[2019-12-04] MEDS: SPIRONOLACTONE 25 MG TAB PO SCH (09:00)
--- NOTE | 2019-12-04 10:48 | NUR ---
Dr Wong has come to advance pt's ngt which had moved aprox [address] Wong states use the tube as is, no kub needed.
[2019-12-04] MEDS: PANTOPRAZOLE 40 MG 10ML VIAL IV SCH ×2 (10:56→22:10)
--- NOTE | 2019-12-04 14:55 | NUR ---
Nutrition Intervention Note RD Recommendation(s) for Physician: - If diet is unable to be advanced, recommend initiating TPN through central line @ 42 mL/hr and increasing towards a goal rate of 100 mL/hr as appropriate (360 g dextrose: 30% dextrose, 120 g amino acids: 10% amino acids, and 25 gm/day lipids, 2400 mL total volume) provides 1929 kcal, 120 g protein at goal -Recommend advancing towards GI soft diet when medically appropriate Plan of Care: RD following, monitoring for tolerance and adequacy Nutrition reason for involvement: follow up RD Assessment 12/02: Follow up. Pt still has NGT with 500 mL drainage recorded last night. Recommend initiating parenteral nutrition since pt has been NPO/liquid diet since admission (11 days). Will continue to monitor. 12/01: Follow up. Pt was sleeping during my visit. Pt was getting frozen plasma through IV. NGT to suction, with 100ml drainage since this AM. Currently NPO day 3. No BM or flatus recorded since 11/29. Recommend PN since pt has been NPO or on liquid diet since admission. Will continue to follow. 11/28: Follow up. Pt discussed during MDR. Pt out of room at time of visit, in OR for R colectomy 2/2 colonic tumor. Pt NPO or on liquid diet since admit, if unable to advance diet post operatively recommend PN for adequate nutrition. Chart reviewed. Will continue to monitor. (11/24/19) Pt is a 59 year old male admitted with GI bleed, cirrhosis, colon mass, and esophageal varices. Pt reports he is tolerating clear liquid diet. Prior to admission, pt reports eating 50% of meals for the past week. Pt stated he usually weighs 188 lbs, but was unsure of when he last weighed this amount. Pt currently has a weight of 177 lbs in chart. No N/V noted. Offered pt a nutrition supplement, but he declined at this time. Will continue to monitor Principal Problems/Diagnoses: GI bleed, cirrhosis, colon mass, and esophageal varices PMH: asthma, liver cirrhosis, gout GI: round, distended, tender abdomen, last recorded BM 11/28 Skin: intact Labs: 12/03: Na 145, K 4.0, BUN 30, Cr 1.42, Glu 105 12/01 Cl 113 H, BUN 28 H, Creatinine 1.8 H, Glucose 128 H, Ca 8.0 L 11/28: Na 141, K 4.7, BUN 11, Cr 0.88, Gluc 95 (11/23) Na 138, BUN 40, Cr 1.41, Glu 136, Ca 7.5, AST 67 Meds: carafate, metoprolol, protonix, Demerol, lasix, spironolactone, zofran, hydralazine Ht: 73 inches Wt: 177 lbs BMI: 23.4 kg/m2 IBW: 184 lbs Malnutrition Evaluation (11/24/19) The patient does not meet criteria for a specified degree of malnutrition at this time. Will re-evaluate at follow-up as appropriate. Nutrition Prescription (Diet Order): NPO/sips of water and ice chips Estimated Nutritional Needs: 0292-4409 calories/day (25-35 kcal/kg CBW) 80-120 g protein/day (1-1.5 g pro/kg CBW) Diet Adequacy: Not meeting calorie needs, Not meeting protein needs Tolerance: N/A NPO Diet Education Needs Assessment: Diet education not indicated. Nutrition Care Level: high Nutrition Diagnosis: Inadequate energy intake related to decreased ability to consume sufficient energy as evidenced by insufficient energy intake from diet compared to needs Goal: Patient will meet 75-100% of estimated needs by follow up Progress: not progressing Interventions: Composition, Rate, Route Monitoring/Evaluation: Total energy intake, Total protein intake, Formula/Solution, IVF , Weight change Signed: Niesha Posada RD, CYNDI Addendum: 12/04/19 at 1502 by Niesha Posada DIET Correction: MASON follow-up assessment was completed on 12/03, not 12/02
--- NOTE | 2019-12-04 14:58 | Progress Note ---
DATE: 12/04/2019 SUBJECTIVE: The patient has NG tube readjusted this morning. He is more alert. He is not having any active bleeding. PHYSICAL EXAMINATION: VITAL SIGNS: The blood pressure is 120/76 and saturation is 98%. The pulse is 74. HEENT: Shows no facial swelling or erythema. CARDIAC: Reveals regular rate and rhythm with normal S1 and S2. LUNGS: Auscultation of lungs reveals decreased breath sounds at the bases. There is no wheezing. ABDOMEN: Soft and nontender. There is no rebound or guarding. EXTREMITIES: Shows no leg edema or calf tenderness. There is no cyanosis or clubbing. LABORATORY DATA: White blood cell count is 8.8 and the hemoglobin is 8.3. The platelet count is 54. The BUN to creatinine ratio is 30 to 1.42. Albumin is 3.1. IMPRESSION: 1. Cirrhosis and portal hypertension. 2. Hepatic encephalopathy. 3. [id number] renal failure. 4. Recent hemicolectomy for colon cancer. 5. Anemia. PLAN: 1. Continue to monitor blood counts. 2. Continue NG tube. 3. Continue current regimen for cirrhosis. 4. Continue oxygen. MD TOO Ramos/LIOR /[id number]
--- NOTE | 2019-12-04 16:33 | Progress Note ---
DATE: 12/04/2019 Nephrology Progress Note SUBJECTIVE: The patient is doing much better today. He is alert and awake. He is oriented. I started IV TPN for him, as he has not had nutrition for significant period of time. PHYSICAL EXAMINATION: VITAL SIGNS: Temperature is 98.3, pulse 74, respiratory rate is 12, blood pressure 120/76, and pulse ox 98% on room air. GENERAL: Not in acute distress. Alert and oriented x3. Cooperative on examination. HEENT: Head; normocephalic, atraumatic. Eyes; pupils are equal, round, and reactive to light bilaterally. Extraocular movements intact bilaterally. Throat; no evidence of erythema or exudates in the posterior pharynx. Has poor dentition. NECK: Supple. Good range of motion. PULMONARY: Clear to auscultation bilaterally. No wheezing, no rales, no rhonchi, no crackles appreciated. CARDIOVASCULAR: Positive S1 and S2. No murmurs, rubs, or gallops appreciated. ABDOMEN: Soft, nondistended, and nontender to palpation. Bowel sounds present. MUSCULOSKELETAL: Strength is 5/5 throughout. No evidence of any muscle deficits on examination. SKIN: Intact. Warm to touch. Good cap refill. PSYCHIATRIC: Normal affect and mood. EXTREMITIES: No edema. Good range of motion throughout. LABORATORY DATA: White count 8.8, hemoglobin 8.3, hematocrit is 27, and platelets of 54. Chemistry reviewed. Sodium 145, potassium 4, chloride 114, bicarb 23, anion gap of 12, BUN is 30, creatinine is 1.42, calcium is 8.7, albumin 3.1. DIAGNOSTIC STUDIES: Abdominal x-ray, no visualized injury, no G-tube or Dobhoff in the abdomen. IMPRESSION: 1. Acute kidney injury secondary to underlying acute tubular necrosis from hypotension-improving. 2. Status post right hemicolectomy with colon mass. 3. Anemia. 4. Thrombocytopenia. 5. Concerns for hepatorenal syndrome with underlying liver cirrhosis. 6. Moderate protein-calorie malnutrition. PLAN: At this time, I already wrote for IV TPN, which he will be receiving the dose this evening. Get a.m. labs for electrolytes monitoring. Hemoglobin is stable. Creatinine is improved and his electrolytes are stable at this time. Monitor very closely. Good urine output. I discussed plan of care with the patient, the patient's , and nursing staff. MD ALEXI Christian/LIOR /[id number]
--- NOTE | 2019-12-04 21:05 | Progress Note ---
DATE: 12/04/2019 Cardiology Progress Note SUBJECTIVE: No complaints. OBJECTIVE: VITAL SIGNS: Temperature 98.3, heart rate 72, respiratory rate 12, blood pressure 125/69, O2 saturation 98% on 2 L/minute nasal cannula. GENERAL: In no acute distress. Chronically ill-appearing. NECK: No JVD. NG tube in place. CHEST: With decreased breath sounds at bilateral bases. CARDIOVASCULAR: Regular rate and rhythm. Normal S1, S2. No S3 or S4. No murmurs. ABDOMEN: Distended with ascites. EXTREMITIES: Trace edema. CARDIOVASCULAR MEDICATIONS: Reviewed. Metoprolol tartrate 5 mg IV q.6 hours, furosemide 2 mg IV q.3 hours p.r.n., spironolactone 25 mg daily. LABORATORY DATA: White blood cells 8.8, hemoglobin 8.3, platelets 54. INR 1.4, PTT 19, PTT 44. Sodium 145, potassium 4, chloride 114, bicarbonate 23, BUN 30, creatinine 1.4, glucose 105. AST 25, ALT 11, total protein 5.7, albumin 3.1. ASSESSMENT: 1. Acute renal failure. 2. Status post right hemicolectomy for colon mass. 3. Anemia and thrombocytopenia. 4. Liver cirrhosis. 5. Protein calorie malnutrition. 6. Supraventricular tachycardia. RECOMMENDATIONS: Continue current cardiovascular medications. P.r.n. adenosine should recurrent episodes of PSVT occur. Continue IV beta-blockers. Artem Flood MD [facility]/MODL /[id number]
[2019-12-04] MEDS: CENTRAL TPN FORMULA 1 BAG IV SCH (22:09)
[2019-12-05] VITALS (8 sets, daily range): BP systolic 117–154; BP diastolic 74–101
[2019-12-05] MEDS: SODIUM CHLORIDE 0.9% 250ML IRRIG IR SCH ×8 (00:59→23:45)
[2019-12-05] MEDS: SUCRALFATE 1 GM/10 ML SUSP NG SCH ×4 (02:55→18:32)
[2019-12-05] MEDS: OCTREOTIDE ACETATE 500 MCG in SODIUM CHLORIDE 0.9% 250ML 250 ML IV SCH ×3 (02:56→22:59)
[2019-12-05] MEDS: CEFOXITIN SOD 1 GM in SODIUM CHLORIDE 0.9% 50ML 50 ML IV SCH ×4 (04:57→22:59)
[2019-12-05] MEDS: METOPROLOL TARTRATE INJ 1 MG/ML VIAL IV SCH ×4 (04:57→22:58)
[2019-12-05] MEDS: MEPERIDINE HCL INJ 25 MG/ML VIAL IV PRN ×3 (06:00→21:52)
[2019-12-05 07:48] LABS: BASOPHILS # (AUTO) 0.1 (0.0-0.1); BASOPHILS % 0.6 % (0.0-1.0); EOSINOPHILS # (AUTO) 0.2 (0.0-0.4); EOSINOPHILS % 2.9 % (0.0-6.0); HEMATOCRIT 30.6 % (38.2-49.6); HEMOGLOBIN 9.1 g/dL (14.0-18.0); LYMPHOCYTES # (AUTO) 0.8 (1.0-3.2); LYMPHOCYTES % 9.1 % (18.0-39.1); MEAN CORPUSCULAR HEMOGLOBIN 29.9 pg (28-32); MEAN CORPUSCULAR HGB CONC 29.7 g/dL (31-35); MEAN CORPUSCULAR VOLUME 100.7 fL (81-99); MONOCYTES # (AUTO) 1.3 (0.2-0.8); MONOCYTES % 15.2 % (4.4-11.3); NEUTROPHILS # (AUTO) 5.9 (2.1-6.9); NEUTROPHILS % 70.1 % (38.7-80.0); PLATELET COUNT 63 x10e3/uL (140-360); RED BLOOD COUNT 3.04 x10e6/uL (4.3-5.7); RED CELL DISTRIBUTION WIDTH 20.1 % (11.7-14.4)
[2019-12-05 08:01] LABS: INR 1.53; PROTHROMBIN TIME 19.4 seconds (11.9-14.5)
[2019-12-05 08:06] LABS: ANION GAP 13.9 mmol/L (8-16); CALCIUM 8.8 mg/dL (8.4-10.2); CREATININE, SERUM 1.39 mg/dL (0.72-1.25); POTASSIUM 3.9 mmol/L (3.5-5.1)
[2019-12-05] MEDS: ALLOPURINOL 100 MG TAB PO SCH ×2 (09:42→18:32)
[2019-12-05] MEDS: PANTOPRAZOLE 40 MG 10ML VIAL IV SCH ×2 (09:42→22:59)
[2019-12-05] MEDS: SPIRONOLACTONE 25 MG TAB PO SCH (09:43)
--- NOTE | 2019-12-05 15:01 | NUR ---
Called Yisel Avila to inform him that culture and sensitivity a gram stain is also included, and I also needed clarification regarding the etc... received orders to clarence Valero and ask him which other labs are ordered with ascitic fluid.
--- NOTE | 2019-12-05 15:07 | NUR ---
Called Dr. John Valero and asked him regarding the needed cytology of ascitic fluid, per Dr. Valero, the paracentesis is needed to because patient is leaking ascitic fluid from the abdominal surgical incision site.
[2019-12-05] MEDS ORDERED: ALBUMIN 25% 25GM 100ML 0.25 GM/ML BTL IV ONE (15:45)
--- NOTE | 2019-12-05 16:09 | Progress Note ---
DATE: 12/05/2019 Nephrology Progress Note SUBJECTIVE: The patient doing well today. He has significant amount of ascites fluid, which I spoke with the primary team about performing a paracentesis tomorrow. PHYSICAL EXAMINATION: VITAL SIGNS: Temperature is 98.1, pulse 71, respiratory rate is 16, blood pressure , and pulse ox 96% on room air. GENERAL: Not in acute distress. Alert and oriented x3. PULMONARY: Clear to auscultation bilaterally. No wheezing, no rales, no rhonchi, no crackles appreciated. CARDIOVASCULAR: Positive S1 and S2. No murmurs, rubs, or gallops appreciated. ABDOMEN: Soft and nontender to palpation. Bowel sounds present. He does have a distended abdomen from ascites. SKIN: Intact. Warm to touch. Good cap refill. PSYCHIATRIC: Normal affect and mood. EXTREMITIES: No edema. Good range of motion throughout. LABORATORY FINDINGS: Show white count 8.3, hemoglobin 9.1, hematocrit is 31, and platelets of 63. Chemistry; sodium 145, potassium 3.9, chloride 115, bicarb 20, anion gap of 13, BUN is 33, creatinine is 1.39, and glucose 151. IMAGING STUDIES: Nothing new. IMPRESSION: 1. Acute kidney injury secondary to acute tubular necrosis from underlying hypotension-improving now. Creatinine likely to be at baseline. 2. Status post right hemicolectomy with colon mass. 3. Anemia. 4. Thrombocytopenia. 5. Concerns for hepatorenal syndrome secondary to liver cirrhosis. 6. Moderate protein-calorie malnutrition. 7. Abdominal ascites. PLAN: At this time, resume IV TPN, which I already renewed. Get a.m. labs. Electrolytes and his creatinine are stable. Urine output noted. Repeat labs in the morning. Spoke with primary team about a paracentesis needed. We will give albumin on-call for paracentesis. MD ALEXI Christian/MODL /[id number]
[2019-12-05] MEDS: CENTRAL TPN FORMULA 1 BAG IV SCH (20:00)
[2019-12-05] MEDS ORDERED: SODIUM CHLORIDE 0.9% 250ML 250 ML ONE (23:13)
--- NOTE | 2019-12-05 23:15 | NUR ---
PATIENT'S ABDOMINAL INCISION PERITONEAL DRAINAGE HAS GOTTEN TO THE POINT THAT DRESSINGS ARE NOT WORKING, WITHIN 30 MINUTES THE PATIENT IS SATURATED IN DRAINAGE. DR CHILD VISITED THE PATIENT AT THIS TIME AND NURSE APPLIED OSTOMY BAGS TO SITE TO COLLECT THE DRAINAGE AND HE STATES THAT'S A GOOD IDEA AND VERIFIED THAT PATIENT WILL GET PARACENTESIS 12/05 WELL ORDERED IV VITAMIN K PIGGYBACK. PATIENT HAD NO C/O PAIN OR DISCOMFORT AT THIS TIME. WILL CONT TO MONITOR.
[2019-12-05] MEDS ORDERED: PHYTONADIONE 10 MG/ML AMP IV ONE (23:45)
[2019-12-06] VITALS (9 sets, daily range): BP systolic 117–152; BP diastolic 57–82
[2019-12-06] MEDS: SUCRALFATE 1 GM/10 ML SUSP NG SCH ×4 (02:01→17:42)
[2019-12-06] MEDS ORDERED: ALBUMIN 25% 25GM 100ML 0.25 GM/ML BTL IV PRN ×2 (02:15→08:00)
[2019-12-06] MEDS ORDERED: SODIUM CHLORIDE 0.9% 50ML 50 ML ONE (02:19)
[2019-12-06] MEDS ORDERED: SODIUM CHLORIDE 0.9% 100 ML ONE (02:21)
[2019-12-06] MEDS: METOPROLOL TARTRATE INJ 1 MG/ML VIAL IV SCH ×4 (02:32→21:00)
[2019-12-06] MEDS: SODIUM CHLORIDE 0.9% 250ML IRRIG IR SCH ×3 (02:32→11:45)
[2019-12-06] MEDS: CEFOXITIN SOD 1 GM in SODIUM CHLORIDE 0.9% 50ML 50 ML IV SCH ×4 (05:24→22:30)
--- NOTE | 2019-12-06 05:54 | NUR ---
PATIENT HAS PULLED OUT NG TUBE STATING HE "COULDN'T STAND THAT THING IN MY NOSE ANYMORE" AND SAYS "IT DIDN'T HURT AND I DIDN'T BLEED". NOTIFIED ABBIE SAAB NP FOR DR GARBER AND ORDER WAS PLACED FOR PATIENT TO HAVE NG TUBE PLACED UNDER IMAGING DUE TO BEING POST BOWEL SURGERY. PATIENT IN BED WITH NO COMPLAINTS OF PAIN/DISCOMFORT OR NAUSEA AT THIS TIME. WILL CONT TO MONITOR.
[2019-12-06 06:08] LABS: ANION GAP 13.2 mmol/L (8-16); CALCIUM 8.5 mg/dL (8.4-10.2); CREATININE, SERUM 1.36 mg/dL (0.72-1.25); MAGNESIUM 2.2 MG/DL (1.3-2.1); PHOSPHORUS 2.9 MG/DL (2.3-4.7); POTASSIUM 4.2 mmol/L (3.5-5.1)
--- NOTE | 2019-12-06 06:30 | Progress Note ---
DATE: 12/05/2019 SUBJECTIVE: Per the nurse, the patient had a considerable amount of fluid from his abdominal incisions, come out when he stood up in a gush. The patient has had significant amount of output from his abdomen in the form of ascites. Case was discussed with Dr. Ruvalcaba and he recommends paracentesis and I concur paracentesis has been ordered. We will check with Dr. Valero, if additional labs are required besides the Gram stain, culture and sensitivity. He also continues to have a significant amount of dark output from the NG tube. Still having abdominal pain 2-4 on a scale of 0-10. He remains n.p.o. and on TPN. OBJECTIVE: VITAL SIGNS: Temperature 98.9, T-max 99.2, heart rate 88, blood pressure 128/82, respirations , and oxygen saturation 96%. GENERAL: Supine. LUNGS: Clear to auscultation with diminished bases. HEENT: Right nares NG tube with dark serosanguineous output. EOMI. NECK: Supple. CARDIOVASCULAR: Regular rate and rhythm. No murmur. Octreotide drip, right PICC line. ABDOMEN: Bowel sounds muffled. He is distended with a large amount of ascites. A Farooq catheter with [place] urine. EXTREMITIES: Without pitting edema, clubbing, cyanosis, or marked swelling. He has SCDs. No signs or symptoms of DVT. NEUROLOGICAL: GCS 15. Nonfocal. LABORATORY DATA: WBC 8.38, hemoglobin 9.1, hematocrit 30.6, platelets 63. Sodium 145, potassium 3.9, chloride 115, CO2 20, BUN 33 and creatinine 1.39, GFR 52, glucose 151, calcium 8.8. PT 19.4, INR 1.53. ASSESSMENT AND PLAN: 1. Status post laparoscopically-assisted right colectomy for ascending colon mass. GI follows. Maintain n.p.o. status and continue TPN, which has kindly been renewed by Nephrology Service. Positive flatus. No bowel movement. He is having leakage of ascites fluid. Paracentesis with labs has been ordered to rule out spontaneous bacterial peritonitis. 2. Anemia. Hemoglobin and hematocrit are stable. Monitor. 3. Prolonged PT/INR. Received vitamin K. Reassess PT, INR in a.m. 4. Cirrhosis due to EtOH abuse. GI following. Encourage alcohol cessation. 5. Elevated total bilirubin. Total bilirubin 5.1 on 11/02. 6. Acute kidney injury likely due to acute tubular necrosis, possible hepatorenal syndrome type 2 due to cirrhosis. Creatinine 1.39 (1.42). Nephrology following. 7. Prophylaxis. Protonix. Billing code [id number]. Time spent 35 minutes. Dictated by Gage Avila, [place] Johny Scott MD [facility]/MODL /[id number]
--- NOTE | 2019-12-06 06:50 | NUR ---
PATIENT SITTING ON SIDE OF BED ABOUT TO PULL OUT IVS, ALREADY DISCONNECTED HIS TELE MONITOR AND PERITONEAL FLUIDS ARE SQUIRTING OUT OF HIS INCISION EACH TIME HE BREATHES. OSTOMY BAGS PLACED OVER THE DRAINING AREAS RIPPED OFF AND PATIENT'S ENTIRE BEDDING, CLOTHING AND AREA UNDER THE BED IS SATURATED. PATIENT IS DISORIENTED AND NOT UNDERSTANDING WHAT HE'S DOING, VERY FORGETFUL OF THE FACT HE'S EVEN IN THE HOSPITAL. NURSE GOT PATIENT CLEANED UP AND SURROUNDING AREA WELL REAPPLIED OSTOMY BAGS TO DRAINING AREAS BUT THE FORCE OF DRAINAGE WILL NOT ALLOW HOLD VERY LONG. PATIENT BED ALARM IS ON BUT LOW VOLUME, EDUCATED ONCOMING NURSE OF PROBLEMS AND CALLING DR TO NOTIFY OF PATIENT'S ATTEMPTS TO PULL OUT MORE LINES.
[2019-12-06] MEDS: ALLOPURINOL 100 MG TAB PO SCH ×2 (09:00→17:42)
[2019-12-06] MEDS: PANTOPRAZOLE 40 MG 10ML VIAL IV SCH ×2 (09:12→21:00)
[2019-12-06] MEDS: OCTREOTIDE ACETATE 500 MCG in SODIUM CHLORIDE 0.9% 250ML 250 ML IV SCH ×2 (09:47→19:30)
--- NOTE | 2019-12-06 10:06 | Progress Note ---
DATE: 12/06/2019 Cardiology Progress Note SUBJECTIVE: Confused overnight, pulled off his NG tube. No complaints currently. Denies chest pain or shortness of breath. OBJECTIVE: VITAL SIGNS: Temperature 98.7, heart rate 80, respiratory rate 14, blood pressure 134/76, O2 saturation 95%. GENERAL: In no acute distress. Alert. NECK: No JVD. CHEST: Clear to auscultation. CARDIOVASCULAR: Regular rate and rhythm. Normal S1, S2. No S3 or S4. Systolic ejection murmur. ABDOMEN: Distended with ascites. Dressings in place. CARDIOVASCULAR MEDICATIONS: Reviewed. Metoprolol tartrate 5 mg q.6 hours IV, spironolactone 25 mg daily, furosemide 20 mg IV q.3 hours p.r.n. LABORATORY DATA: Reviewed. White blood cells 8, hemoglobin 9, platelets 63. INR 1.5. Sodium 145, potassium 4.2, chloride 116, bicarbonate 20, BUN 33, creatinine 1.3, glucose 142, magnesium 2.2, phosphorus 2.9, calcium 8.5, ammonia 73. ASSESSMENT AND PLAN: 1. Supraventricular tachycardia. On telemetry, in sinus rhythm currently. 2. Acute renal failure. 3. Status post right hemicolectomy for colon mass. 4. Anemia and thrombocytopenia. 5. Liver cirrhosis. 6. Chronic protein-caloric malnutrition. RECOMMENDATIONS: 1. Continue IV beta-velma. 2. As needed can use p.r.n. adenosine. 3. Volume optimization underway. Possible paracentesis being planned. MD STACEY Valentino/LIOR /[id number]
[2019-12-06] MEDS: MEPERIDINE HCL INJ 25 MG/ML VIAL IV PRN (11:54)
[2019-12-06] MEDS: SPIRONOLACTONE 25 MG TAB PO SCH (12:22)
--- NOTE | 2019-12-06 15:29 | Progress Note ---
DATE: 12/06/2019 SUBJECTIVE: The patient had his NG tube removed. He is eating some Jell-O. He has some drainage in his colostomy bag. He has no fevers. PHYSICAL EXAMINATION: VITAL SIGNS: The blood pressure is 117/64 and saturation is 95% on 2 L. HEENT: Shows no facial swelling or erythema. CARDIAC: Reveals regular rate and rhythm with normal S1 and S2. LUNGS: Auscultation of lungs reveals decreased breath sounds at the bases. There is no wheezing. ABDOMEN: Soft and nontender. There is no rebound or guarding. There is some distention. There is a colostomy bag in place. LABORATORY DATA: White blood cell count is 8.38 and the hemoglobin is 9.1. The platelet count is 63. BUN to creatinine ratio is 33 to 1.36. CO2 is 20 and the chloride is 116. IMPRESSION: 1. Status post right hemicolectomy for colonic mass. 2. Anemia secondary to acute blood loss. 3. Cirrhosis and portal hypertension. 4. Acute kidney injury. PLAN: 1. Continue to monitor blood counts. 2. Continue to advance diet as tolerated. 3. Continue treatment for cirrhosis. 4. Wean oxygen. 5. Continue to monitor creatinine. Arun Dukes MD [facility]/MODL /[id number]
[2019-12-06] MEDS: CENTRAL TPN FORMULA 1 BAG IV SCH (20:00)
--- NOTE | 2019-12-06 21:36 | Progress Note ---
DATE: 12/06/2019 Nephrology Progress Note SUBJECTIVE: The patient was seen early this afternoon. He was doing well. Paracentesis was not performed today. He has been doing well. He is eating, now on a clear liquid diet. PHYSICAL EXAMINATION: VITAL SIGNS: Temperature is 98.7, pulse is 92, respiratory rate is 18, blood pressure 140/87, and pulse ox 98% on room air. GENERAL: Not in acute distress. Alert and oriented x3. Cooperative on examination. PULMONARY: Clear to auscultation bilaterally. No wheezing, no rales, no rhonchi, no crackles appreciated. CARDIOVASCULAR: Positive S1 and S2. No murmurs, rubs, or gallops appreciated. ABDOMEN: Soft, nondistended, and nontender to palpation. Bowel sounds present. MUSCULOSKELETAL: Strength is 5/5 throughout. No evidence of any muscle deficits on examination. No weakness appreciated. NEUROLOGIC: Cranial nerves 2 through 12 grossly intact. No evidence of any neurological deficits on exam. SKIN: Intact. Warm to touch. Good cap refill. PSYCHIATRIC: Normal affect and mood. EXTREMITIES: No edema. Good range of motion throughout. LABORATORY DATA: Show white count 8.3, hemoglobin 9.1, hematocrit is 31, and platelets of 63. Chemistry; sodium was 145, potassium 4.2, chloride 116, bicarb 20, anion gap of 13, BUN is 33, creatinine is 1.36, and glucose is 142. Phosphorus was 2.9, magnesium was 2.2, and ammonia level was 73. IMPRESSION: 1. Acute kidney injury secondary to acute tubular necrosis from underlying hypotension, now resolved. 2. Status post right hemicolectomy with colon mass. 3. Anemia. 4. Thrombocytopenia. 5. Concerns for hepatorenal syndrome type 2 secondary to liver cirrhosis. 6. Moderate protein-calorie malnutrition. 7. Abdominal ascites. PLAN: At this time from a renal standpoint, his renal function is stable and his electrolytes are stable. I did adjust his IV TPN and got rid of the magnesium due to his magnesium level being slightly elevated. He is on a clear liquid diet. Get morning labs. Urine output noted. Continue to follow closely. Deedee Ruvalcaba MD [facility]/MODL /[id number]
[2019-12-07] VITALS (9 sets, daily range): BP systolic 102–132; BP diastolic 55–103
--- NOTE | 2019-12-07 00:06 | Progress Note ---
DATE: 12/06/2019 EVENTS OVERNIGHT: The patient was confused last night and apparently pulled out his NG tube. SUBJECTIVE: The patient complains of mild epigastric pain about a 2 on a scale of 0-10. No complaints of headache, dizziness, sore throat, trouble swallowing, shortness of breath, cough, phlegm, nausea, vomiting. PHYSICAL EXAMINATION: VITAL SIGNS: Temperature 98.7, heart rate 78, blood pressure 136/63, respirations 14, oxygen saturation 95% on room air. GENERAL: Supine, awake, alert. LUNGS: Clear to auscultation with diminished bases. HEENT: EOMI. NECK: Supple. CARDIOVASCULAR: Regular rate and rhythm. No murmur. Octreotide drip and TPN via right PICC line, TPN is at 85 mL an hour. ABDOMEN: Bowel sounds present. Distended with a large amount of ascites. Midline abdominal incision with lyndsey, has a collection bag for the ascites fluid, which appears like red Dax-Aid color. GENITOURINARY: Farooq catheter with [place] urine. EXTREMITIES: No pitting edema, clubbing, cyanosis. No signs of DVT. SCDs bilaterally. NEUROLOGICAL: GCS 15. Nonfocal. LABORATORY DATA: Sodium 145, potassium 4.2, chloride 116, CO2 of 20, anion gap 13.2, BUN 33, creatinine 1.36, estimated GFR 53, glucose 142, calcium 8.5, phosphorus 2.9, magnesium 2.2, ammonia level 73. No new radiology data. ASSESSMENT AND PLAN: 1. Status post laparoscopically assisted right colectomy for ascending colon mass. GI follows. Maintain n.p.o. status and continue TPN. Paracentesis has been canceled due to the risk. Appreciate Surgery recs. 2. Anemia. H and H are stable. Monitor. 3. Prolonged PT/INR. Monitor. 4. Cirrhosis due to the EtOH abuse. GI following. Encourage alcohol cessation. 5. Elevated total bilirubin. Total bilirubin 5.1 on 11/02. Monitor. 6. Acute kidney injury, likely due to acute tubular necrosis, possible hepatorenal syndrome, type 2 due to cirrhosis. Creatinine 1.36 (1.39). Nephrology following. 7. Mild hypermagnesemia. Magnesium level 2.2. Magnesium was removed from TPN per Nephrology. 8. Prophylaxis, Protonix. Billing code [id number]. Time spent 35 minutes. Dictated by Gage Avila, KIER HAND MD POPPY Breen/LIOR /[id number]
[2019-12-07] MEDS: HYDROCODONE/APAP 5MG-325MG TAB PO PRN (00:43)
[2019-12-07] MEDS: SUCRALFATE 1 GM/10 ML SUSP NG SCH ×4 (00:44→17:27)
[2019-12-07] MEDS ORDERED: PHYTONADIONE 10 MG/ML AMP IV ONE (02:45)
[2019-12-07] MEDS ORDERED: SODIUM CHLORIDE 0.9% 100 ML ONE (03:08)
[2019-12-07] MEDS: METOPROLOL TARTRATE INJ 1 MG/ML VIAL IV SCH ×4 (03:18→20:25)
[2019-12-07] MEDS: CEFOXITIN SOD 1 GM in SODIUM CHLORIDE 0.9% 50ML 50 ML IV SCH ×3 (04:38→16:57)
[2019-12-07 05:01] LABS: BASOPHILS # (AUTO) 0.1 (0.0-0.1); BASOPHILS % 0.6 % (0.0-1.0); EOSINOPHILS % 0.2 % (0.0-6.0); HEMATOCRIT 32.9 % (38.2-49.6); HEMOGLOBIN 9.9 g/dL (14.0-18.0); LYMPHOCYTES # (AUTO) 1.1 (1.0-3.2); LYMPHOCYTES % 5.6 % (18.0-39.1); MEAN CORPUSCULAR HEMOGLOBIN 30.8 pg (28-32); MEAN CORPUSCULAR HGB CONC 30.1 g/dL (31-35); MEAN CORPUSCULAR VOLUME 102.5 fL (81-99); MONOCYTES # (AUTO) 1.5 (0.2-0.8); MONOCYTES % 7.5 % (4.4-11.3); NEUTROPHILS # (AUTO) 16.3 (2.1-6.9); PLATELET COUNT 69 x10e3/uL (140-360); RED BLOOD COUNT 3.21 x10e6/uL (4.3-5.7); RED CELL DISTRIBUTION WIDTH 20.8 % (11.7-14.4)
[2019-12-07 05:08] LABS: INR 2.15; PROTHROMBIN TIME 25.6 seconds (11.9-14.5)
[2019-12-07 05:19] LABS: ANION GAP 13.5 mmol/L (8-16); CREATININE, SERUM 1.51 mg/dL (0.72-1.25); MAGNESIUM 2.1 MG/DL (1.3-2.1); PHOSPHORUS 4.2 MG/DL (2.3-4.7); POTASSIUM 4.5 mmol/L (3.5-5.1)
[2019-12-07] MEDS: OCTREOTIDE ACETATE 500 MCG in SODIUM CHLORIDE 0.9% 250ML 250 ML IV SCH ×2 (08:40→19:45)
[2019-12-07] MEDS: ALLOPURINOL 100 MG TAB PO SCH ×2 (09:00→17:00)
[2019-12-07] MEDS: SPIRONOLACTONE 25 MG TAB PO SCH (09:00)
[2019-12-07] MEDS: PANTOPRAZOLE 40 MG 10ML VIAL IV SCH ×2 (09:48→20:25)
[2019-12-07] MEDS ORDERED: SODIUM BICARBONATE 8.4% INJ 50 ML SYR IV STA (14:23)
--- NOTE | 2019-12-07 15:15 | Progress Note ---
DATE: 12/07/2019 Nephrology Progress Note SUBJECTIVE: The patient is doing well. He has significant amount of ascites fluid, it is actually seeping into the bed, to the bedsheets, and the towels. I am communicating with a consult to see we do a paracentesis. Renal output is good according to the nursing staff. PHYSICAL EXAMINATION: VITAL SIGNS: Temperature 98.2, pulse 80, respiratory rate 20, blood pressure , and pulse ox 95% on room air. GENERAL: Not in acute distress. Alert and oriented x3. Cooperative on examination. PULMONARY: Clear to auscultation bilaterally. No wheezing, no rales, or rhonchi, no crackles appreciated. CARDIOVASCULAR: Positive S1, S2. No murmurs, rubs, or gallops. ABDOMEN: Soft, nondistended, and non tender to palpation. He does have ascites. He is very distended on examination. SKIN: Intact, warm to touch. Good cap refill. MUSCULOSKELETAL: Strength is 5/5 throughout. He is very weak on examination. EXTREMITIES: No edema. Good range of motion throughout. LABORATORY DATA: Labs show white count was 19, hemoglobin 9.9, hematocrit 32, and platelets of 69. Chemistry; sodium , potassium 4.5, chloride 115, bicarb 16, anion gap of 13, BUN 39, creatinine 1.51, calcium is 8. IMAGING STUDY: CT abdomen and pelvis has been ordered. IMPRESSION: 1. Acute kidney injury, secondary to ATN from underlying hypotension, likely underlying hepatorenal syndrome type 2-improving. 2. Metabolic acidosis. 3. Status post right hemicolectomy with colon mass. 4. Anemia. 5. Thrombocytopenia. 6. Moderate protein-calorie malnutrition. 7. Abdominal ascites. PLAN: At this time, continue with IV TPN as ordered. No changes from the TPN orders from yesterday. Put on sodium bicarbonate tabs 1300 mg p.o. b.i.d. Get a.m. labs. Urine output recorded, showed an output from yesterday 700 mL. We will continue to monitor that very closely, may need a paracentesis. We will discuss with consultants. MD ALEXI Christian/GÉNESISL /[id number]
--- NOTE | 2019-12-07 16:47 | Diagnostic Imaging Report ---
EXAM: CT Abdomen and Pelvis WITHOUT intravenous contrast INDICATION: Abdominal distention, ascites COMPARISON: KUB 12/04/2019 TECHNIQUE: Abdomen and pelvis were scanned utilizing a multidetector helical scanner from the lung base to the pubic symphysis without administration of IV contrast. Coronal and sagittal reformations were obtained. IV CONTRAST: None ORAL CONTRAST: None COMPLICATIONS: None RADIATION DOSE: Total DLP: 857 mGy*cm Dose modulation, iterative reconstruction, and/or weight based adjustment of the mA/kV was utilized to reduce the radiation dose to as low as reasonably achievable. FINDINGS: LOWER THORAX: Trace bilateral pleural effusions. Bibasilar dependent subsegmental atelectasis. HEPATOBILIARY: Nodular liver surface contour consistent with hepatic cirrhosis. No focal liver lesions. Mildly distended gallbladder without wall thickening, radiopaque calculi or pericholecystic fluid. Surgifoam packing material anterior to the gallbladder fossa. Sequela of portal hypertension with recanalization of the umbilical vein, upper abdominal portosystemic collaterals. SPLEEN: Splenomegaly to 15 cm. PANCREAS: No focal masses or ductal dilatation. ADRENALS: No adrenal nodules. KIDNEYS/URETERS: Bilateral nonobstructive renal calculi measure up to 3 mm on the right and 2 mm on the left. No hydronephrosis, hydroureter, or solid renal mass lesion. PELVIC ORGANS/BLADDER: Unremarkable. PERITONEUM / RETROPERITONEUM: Small volume ascites. No free air. LYMPH NODES: No lymphadenopathy. VESSELS: Moderate atherosclerotic calcifications of the nonaneurysmal abdominal aorta and major branches. GI TRACT: Status post recent right colectomy. No focal fluid collection or extraluminal air adjacent to the right lower quadrant anastomosis. Multiple dilated loops of small bowel measure up to 4.8 cm with air-fluid levels. No definite transition point. BONES AND SOFT TISSUES: No acute osseous injury. No suspicious lytic or blastic lesions. Grade 1 retrolisthesis at L5-S1. Mild multilevel degenerative changes of the visualized spine. Postoperative findings of the anterior abdomen with surgical skin lyndsey at the laparotomy site. IMPRESSION: Status post recent right hemicolectomy. Multiple loops of distended small bowel measure up to 4.8 cm maximum diameter with air-fluid levels. There is no clear transition point. In the postoperative setting, this is more likely ileus than small bowel obstruction. Hepatic cirrhosis and sequela of portal hypertension with splenomegaly, ascites, and upper abdominal portosystemic collaterals. Trace bilateral pleural effusions. Bilateral nonobstructive renal calculi. The above findings were discussed with Dr. Wong on 12/07/2019 4:38 PM, who responded indicating that the communication was understood. Signed by: Elroy Olsen MD on 12/07/2019 4:43 PM
[2019-12-07] MEDS ORDERED: SODIUM BICARBONATE 650 MG TAB PO SCH (17:00)
--- NOTE | 2019-12-07 19:20 | Progress Note ---
DATE: 12/07/2019 Cardiology Progress Note. SUBJECTIVE: Confused. No complaints. OBJECTIVE: VITAL SIGNS: Temperature 98.1, heart rate 87, blood pressure 132/55, respiratory rate 18, O2 saturation 95%. GENERAL: In no acute distress. Chronically ill-appearing, confused. NECK: No JVD. HEENT: NG tube in place. CHEST: With decreased breath sounds at bilateral bases. CARDIOVASCULAR: Regular rate and rhythm. Normal S1 and S2. No S3. No S4. ABDOMEN: Soft. Distention improved. Dressings in place. EXTREMITIES : Trace edema. Telemetry in sinus rhythm. CARDIOVASCULAR MEDICATIONS: Reviewed. 1. Metoprolol tartrate 5 mg IV q.6 hours. 2. Furosemide 20 mg q. 3 hours p.r.n. 3. Spironolactone 25 mg daily. STUDIES: Reviewed. Sodium 140, potassium 4.5, chloride 115, bicarbonate 16, BUN 39, creatinine 1.5, glucose 150. White blood cells 19, hemoglobin 9.9, platelets 69. INR 2. ASSESSMENT AND PLAN: A 59-year-old man presents with: 1. GI bleed. 2. Liver cirrhosis. 3. Colon mass. 4. Status post partial colectomy. 5. Paroxysmal supraventricular tachycardia. 6. Anemia. RECOMMEND: Continue current cardiovascular medications. Artem Flood MD AFV/MODL /[id number]
--- NOTE | 2019-12-07 19:48 | NUR ---
Pt had pulled NGT out and paige dislodged. 50 cc dark blood to the paige collection bag but no further output. Called spoke with Dr Wong who advised replace the NGT and spoke with Reji Avila NP who ordered for Dr Noble Alvarez to consult. Spoke with Dr Alvarez. He ordered to insert a 24 cymro irrigation catheter all the way to the hub, 10 cc balloon with 20cc ns in the balloon, manually irrigate clots, and start NS continuouis irrigation. The NGT was placed as ordered without any noted complications. The paige was placed without complications. The paige gave an immediated 120cc dark urine, no blood. Placed to drainage bag. The irrigation set is on stand by for use if needed.
[2019-12-07] MEDS: CENTRAL TPN FORMULA 1 BAG IV SCH (20:12)
[2019-12-07] MEDS: CEFEPIME 2 GM/NS 0.9% 100 ML 100 ML IV SCH (20:25)
--- NOTE | 2019-12-07 20:45 | NUR ---
vipul The patient is a 59-year-old man. He has a history of cirrhosis. He was admitted directly from Dr. Salinas's office with a low blood count and some lower GI bleeding. He was subsequently found to have a colon mass. Yesterday, he underwent a right-sided hemicolectomy. He still has some obtundation. Apparently, he may also have some continued bleeding. He is not urinating well and his creatinine has increased. PAST SURGICAL HISTORY: 1. Status post colectomy as noted above. 2. Status post L4-L5 laminectomy. 3. Status post tonsillectomy. PAST MEDICAL HISTORY: 1. Asthma. 2. Cirrhosis. tatus post recent right hemicolectomy. Multiple loops of distended small bowel measure up to 4.8 cm maximum diameter with air-fluid levels. There is no clear transition point. In the postoperative setting, this is more likely ileus than small bowel obstruction. Hepatic cirrhosis and sequela of portal hypertension with splenomegaly, ascites, and upper abdominal portosystemic collaterals. Trace bilateral pleural effusions. Bilateral nonobstructive renal calculi. [id number]
[2019-12-07] MEDS: METRONIDAZOLE 500MG/NS 100ML 100 ML IV SCH (22:00)
--- NOTE | 2019-12-07 22:00 | NUR ---
Received patient confused on restraints, abdominal dressing done
[2019-12-08] VITALS (13 sets, daily range): BP systolic 89–143; BP diastolic 54–84
[2019-12-08] MEDS: METOPROLOL TARTRATE INJ 1 MG/ML VIAL IV SCH ×4 (03:00→20:06)
[2019-12-08] MEDS ORDERED: PHYTONADIONE 10 MG/ML AMP IV ONE ×2 (03:30→09:15)
[2019-12-08] MEDS ORDERED: SODIUM CHLORIDE 0.9% 100 ML ONE (04:01)
[2019-12-08 04:23] LABS: CLARITY,URINE CLOUDY (CLEAR); COLOR,URINE STRAW (YELLOW); KETONES,URINE NEGATIVE (NEGATIVE); LEUKOCYTE ESTERASE ,URINE 1+ (NEGATIVE); NITRITE,URINE NEGATIVE (NEGATIVE); PROTEIN,URINE DIPSTICK 2+ (NEGATIVE); URINE UROBILINOGEN 0.2 mg/dL (0.2 - 1)
[2019-12-08 04:24] LABS: BILIRUBIN,URINE 1+ (NEGATIVE)
[2019-12-08 04:30] LABS: BACTERIA,URINE MODERATE /HPF; EPITHELIAL CELLS,URINE FEW /LPF; RBC,URINE >50 /HPF (0-5); WBC,URINE (MAN) 21-50 /HPF (0-5)
[2019-12-08 05:04] LABS: BASOPHILS # (AUTO) 0.1 (0.0-0.1); BASOPHILS % 0.5 % (0.0-1.0); EOSINOPHILS # (AUTO) 0.1 (0.0-0.4); EOSINOPHILS % 0.4 % (0.0-6.0); HEMATOCRIT 31.8 % (38.2-49.6); HEMOGLOBIN 9.6 g/dL (14.0-18.0); LYMPHOCYTES # (AUTO) 1.1 (1.0-3.2); LYMPHOCYTES % 4.3 % (18.0-39.1); MEAN CORPUSCULAR HGB CONC 30.2 g/dL (31-35); MEAN CORPUSCULAR VOLUME 102.6 fL (81-99); MONOCYTES # (AUTO) 1.6 (0.2-0.8); MONOCYTES % 6.5 % (4.4-11.3); NEUTROPHILS # (AUTO) 21.5 (2.1-6.9); NEUTROPHILS % 86.9 % (38.7-80.0); PLATELET COUNT 75 x10e3/uL (140-360); RED CELL DISTRIBUTION WIDTH 21.6 % (11.7-14.4)
--- NOTE | 2019-12-08 05:05 | Diagnostic Imaging Report ---
EXAMINATION: CHEST SINGLE (PORTABLE) INDICATION: Rule out infection COMPARISON: Abdominal CT 12/07/2019 FINDINGS: TUBES and LINES: Enteric tube courses into abdomen, tip out of field of view. Right upper extremity PICC tip terminates in the superior cavoatrial junction. LUNGS: Normal lung volumes. Lungs are clear. Prominent central pulmonary vasculature. PLEURA: No pleural effusion or pneumothorax. HEART AND MEDIASTINUM: The cardiomediastinal silhouette is unremarkable. BONES AND SOFT TISSUES: No acute osseous lesion. Soft tissues are unremarkable. UPPER ABDOMEN: No free air under the diaphragm. IMPRESSION: No radiographic abnormality of the lung hernandez although evaluation is limited due to suboptimal portable AP technique. Pulmonary vascular congestion. Signed by: Shreyas Romano DO on 12/08/2019 5:01 AM
[2019-12-08 05:32] LABS: ANION GAP 12.9 mmol/L (8-16); CALCIUM 7.7 mg/dL (8.4-10.2); CREATININE, SERUM 1.8 mg/dL (0.72-1.25); POTASSIUM 4.9 mmol/L (3.5-5.1)
[2019-12-08] MEDS: METRONIDAZOLE 500MG/NS 100ML 100 ML IV SCH ×3 (06:00→21:48)
[2019-12-08] MEDS: SUCRALFATE 1 GM/10 ML SUSP NG SCH ×5 (06:00→22:32)
--- NOTE | 2019-12-08 06:00 | NUR ---
Dr Wong informed of the blood tinged drainage from the ngt. Called Dr Hart office to report lab results, awaiting call back
[2019-12-08] MEDS: OCTREOTIDE ACETATE 500 MCG in SODIUM CHLORIDE 0.9% 250ML 250 ML IV SCH ×2 (07:38→20:09)
[2019-12-08] MEDS: PANTOPRAZOLE 40 MG 10ML VIAL IV SCH ×2 (08:06→20:10)
[2019-12-08] MEDS: ALLOPURINOL 100 MG TAB PO SCH ×2 (08:07→17:00)
[2019-12-08] MEDS: SPIRONOLACTONE 25 MG TAB PO SCH (08:07)
[2019-12-08] MEDS ORDERED: PHYTONADIONE 10MG/ML 20 MG in SODIUM CHLORIDE 0.9% 50ML 50 ML IV ONE (10:00)
--- NOTE | 2019-12-08 11:05 | NUR ---
informed Dr. Wong patient continues to weep and drain from abdominal incision, dressing is consistently saturated after multiple dressing changes, no new orders will continue to monitor.
--- NOTE | 2019-12-08 12:35 | Progress Note ---
DATE: 12/08/2019 Cardiology Progress Note SUBJECTIVE: Confused. OBJECTIVE: VITAL SIGNS: Temperature 98.9, heart rate 91, respiratory rate 16, blood pressure 112/66, and O2 saturation 96% on 2 L/minute nasal cannula. NG tube in place. NECK: No JVD. CHEST: Decreased breath sounds in bilateral bases. CARDIOVASCULAR: Regular rate and rhythm. Normal S1 and S2. Systolic ejection murmur. ABDOMEN: Distended with ascites. Dressings in place. EXTREMITIES: No edema. CARDIOVASCULAR MEDICATIONS: Reviewed. Metoprolol tartrate 5 mg q.6 hours, metronidazole, cefepime, lactulose, furosemide 20 mg IV q.3 hours p.r.n., and spironolactone 25 mg daily. STUDIES: Reviewed. White blood cells 24.7, hemoglobin 9.6, and platelets 75. Sodium 141, potassium 4.9, chloride 116, bicarbonate 17, BUN is 56, creatinine 1.8, glucose 133, and calcium 7.7. ASSESSMENT AND PLAN: 1. Paroxysmal supraventricular tachycardia. 2. Gastrointestinal bleed and liver cirrhosis. 3. Colon mass, status post partial colectomy. 4. Anemia. 5. Thrombocytopenia. 6. Encephalopathy. 7. Abnormal UA. RECOMMEND: 1. Continue current IV beta-velma dosing. 2. On TPN for protein caloric malnutrition. 3. We will follow closely. MD SantosV/GÉNESISL /[id number]
[2019-12-08] MEDS ORDERED: ALBUMIN 25% 25GM 100ML 0.25 GM/ML BTL IV SCH (13:30)
[2019-12-08] MEDS ORDERED: SALIVA SUBSTITUTE 45 ML LIQD MM SCH (14:00)
[2019-12-08] MEDS ORDERED: FUROSEMIDE INJ 10 MG/ML 4 ML VIAL IV ONE (14:30)
--- NOTE | 2019-12-08 14:30 | Progress Note ---
DATE: 12/08/2019 Nephrology Progress Note SUBJECTIVE: The patient is doing well when I evaluated him. His white count is still steadily increasing. His creatinine went up, concerning for underlying hepatorenal syndrome. He still has significant amount of ascites and likely needs to have a paracentesis. PHYSICAL EXAMINATION: VITAL SIGNS: Temperature is 98.7, pulse 92, respiratory rate is 17, blood pressure 132/65, and pulse ox 97% on room air. GENERAL: Not in acute distress. Alert and oriented x3. Cooperative on examination. HEENT: Head; normocephalic, atraumatic. Eyes; pupils are equal, round, and reactive to light bilaterally. Extraocular movements intact bilaterally. Throat; no evidence of erythema or exudates in the posterior pharynx. Has poor dentition. NECK: Supple. Good range of motion. PULMONARY: Clear to auscultation bilaterally. No wheezing, no rales, no rhonchi, no crackles appreciated. CARDIOVASCULAR: Positive S1 and S2. No murmurs, rubs, or gallops appreciated. ABDOMEN: Soft and nontender to palpation. Bowel sounds present. Abdomen was distended, has some ascites fluid noted. MUSCULOSKELETAL: Strength is 5/5 throughout. No evidence of any muscle deficits on examination. No weakness appreciated. NEUROLOGIC: Cranial nerves 2 through 12 grossly intact. No evidence of any neurological deficits on exam. SKIN: Intact. Warm to touch. Good cap refill. EXTREMITIES: No edema. Good range of motion throughout. LABORATORY FINDINGS: Show white count was 24, hemoglobin 9.6, hematocrit is 32, and platelets of 75. Chemistry; sodium 141, potassium 4.9, chloride 116, bicarb 17, anion gap of 12, BUN is 56, creatinine is 1.8, glucose is 133, and calcium is 7.7. MICROBIOLOGY: Blood and urine cultures are pending. IMAGING STUDIES: Chest x-ray this morning shows no radiographic abnormalities of the lung field, although evaluation is limited due to suboptimal portable AP technique. Pulmonary vascular congestion. CT abdomen and pelvis, status post recent right hemicolectomy with multiple loops of distended small bowel, measuring up to 4.8 cm maximum diameter with air-fluid levels. There is no clear transition point. This is more likely ileus and small bowel obstruction. Hepatic cirrhosis noted. Portal hypertension. Trace bilateral pleural effusions. Bilateral nonobstructive renal calculi. IMPRESSION: 1. Acute kidney injury secondary to acute tubular necrosis from underlying hypotension, now worsening renal function. 2. Hepatorenal syndrome type 2. 3. Metabolic acidosis-resolved. 4. Status post right hemicolectomy with colon mass. 5. Anemia/thrombocytopenia. 6. Moderate protein-calorie malnutrition. 7. Abdominal ascites. PLAN: From a renal standpoint, we will resume the IV TPN. He is still n.p.o. He still has significant amount of abdominal fluid with likely will need a paracentesis. I did add IV Lasix. His chest x-ray is consistent with pleural effusion. I did add some albumin to avoid any worsening renal function, concerns for hepatorenal syndrome. Discussed plan of care with nursing staff. MD ALEXI Christian/MODL /[id number]
[2019-12-08] MEDS: ALBUMIN 25% 25GM 100ML 100 ML IV SCH ×2 (15:02→20:12)
[2019-12-08] MEDS: SALIVA SUBSTITUTE 45 ML LIQD MM SCH ×3 (15:32→23:23)
--- NOTE | 2019-12-08 15:35 | Progress Note ---
DATE: 12/08/2019 Pulmonary Critical Care Progress Note SUBJECTIVE: The patient is more obtunded today. He had an NG tube placed yesterday and has some dark drainage. He also had possible melanotic stool. PHYSICAL EXAMINATION: VITAL SIGNS: Blood pressure is 132/65 and the saturation is 97%. The pulse is 92. Respiratory rate is 17. HEENT: Shows no facial swelling or erythema. CARDIAC: Reveals regular rate and rhythm with normal S1 and S2. LUNGS: Auscultation of lungs reveals decreased breath sounds at the bases. There is no wheezing. ABDOMEN: Soft. There is some distention. The incision site is bandaged. He has some leg edema. He is not responding as well. LABORATORY DATA: BUN to creatinine ratio is increased to 56/1.8, and the carbon dioxide is 17. His white blood cell count is 24.7 and hemoglobin is 9.6. His platelet count is 75. RADIOGRAPHIC DATA: Chest x-ray shows no acute disease. CT scan of the abdomen and pelvis from yesterday shows status post recent right hemicolectomy. Loops of distended small bowel with no clear air-fluid levels. There are also changes suggestive of cirrhosis and portal hypertension. IMPRESSION: 1. Metabolic encephalopathy. 2. Leukocytosis and sepsis with unclear source. 3. Cirrhosis and portal hypertension. 4. Status post hemicolectomy with colon cancer. 5. Anemia secondary to acute blood loss. 6. Thrombocytopenia. 7. Moderate protein-calorie malnutrition. 8. Acute kidney injury. PLAN: 1. Repeat CBC again at 5:00 p.m. 2. Discuss antibiotics with Infectious Disease. 3. Continue octreotide. 4. Continue Aldactone and lactulose. 5. Albumin as needed. 6. Case discussed with nursing, family, Infectious Disease, and Internal Medicine. 7. Prognosis remains poor. Arun Dukes MD LM/MODL /[id number]
--- NOTE | 2019-12-08 15:46 | Progress Note ---
DATE: 12/08/2019 SUBJECTIVE: Mr. Lemus was seen today. He is lethargic. He was seen twice one in the morning he was more alert, but now he is lethargic. I have met his and discussed the case with them, discussed the case with Critical Care. He is currently lethargic, confused. The patient apparently has been sick for more than two years. PHYSICAL EXAMINATION: GENERAL: He is lethargic, afebrile. HEENT: Pale. Anicteric. NECK: Supple. CHEST: Few crackles. COR: S1, S2. ABDOMEN: Soft. IMPRESSION AND PLAN: Sepsis, metabolic encephalopathy, liver cirrhosis, acute on chronic kidney disease, anemia of gastrointestinal bleed, liver cirrhosis, and alcoholism. Prognosis is extremely poor. The and the patient would like to go with comfort care. They would like to go DNR, but we will continue with antibiotic and management as mentioned above. Discussed with the medical team. MD DEISI Yeboah/LIOR /[id number]
--- NOTE | 2019-12-08 16:31 | Consultation ---
DATE OF CONSULTATION: 12/08/2019 Urology Consultation. REASON FOR CONSULTATION: Gross hematuria and urethral trauma. HISTORY OF PRESENT ILLNESS: Leesa Lemus is a 59-year-old man with no previous urological history. He denies hematuria, dysuria, urinary tract infections or urolithiasis. Denies ever seeing a urologist. The patient is cirrhotic due to alcoholism. He underwent a resection of a colon mass. Following this, the patient has the Farooq catheter. The patient pulled his Farooq catheter, output was minimized. Irrigation was unsuccessful. Upon removal of Farooq catheter, there was bleeding as one would expect. I asked the nurses to place a 24-Kyr[place] Farooq catheter with an irrigation port and a 10 mL balloon and put 20 mL in the 10 mL balloon. The nurses did that, irrigated the bladder clear of clot and since then the patient's urinary output has been yellow. PAST MEDICAL/SURGICAL HISTORY: 1. Status post two back surgeries. 2. Status post colon resection this hospitalization. 3. Cirrhosis. 4. Status post tonsillectomy. 5. Gout. 6. Seasonal allergies. 7. Asthma. CURRENT MEDICATIONS: Please refer to the MAR. ALLERGIES: NONE KNOWN. SOCIAL HISTORY: The patient denies smoking and drug use. He reports drinking vodka daily. He is an unemployed cook. FAMILY HISTORY: Noncontributory to the active urological problems. REVIEW OF SYSTEMS: Discussed as above in history of present illness and past medical history, otherwise negative for all systems. PHYSICAL EXAMINATION: GENERAL: Cirrhotic appearing 59-year-old male lying in bed, in no apparent distress. VITAL SIGNS: He is currently afebrile. His vitals are currently stable. ABDOMEN: Soft. It is full. The incision is intact. There is blood tinged oozing from drain sites. GENITOURINARY: Testes descended bilaterally. They are bilaterally atrophic. The patient has a 24-Kyrgyz Farooq catheter with yellow urine output. He has a normal circumcised male phallus with normal meatus without any lesion. Digital rectal examination is deferred at the present time. For the remaining physical examination systems, please refer to the admission history and physical as well as the other notes in the chart. LABORATORY STUDIES: Urine and blood cultures are pending. White blood cell count is 24,760, hemoglobin 9.6, platelets 75,000. The patient's creatinine is elevated at 1.8. His calcium is low at 7.7. Urinalysis significant for greater than 50 rbc's, 21-50 wbc's, moderate bacteria. CT scan of the abdomen and pelvis was done and it revealed nonobstructing bilateral renal stones that were small. ASSESSMENT: 1. Gross hematuria. 2. Self-inflicted urethral trauma. 3. Possible urinary tract infection. 4. Leukocytosis. 5. Anemia. 6. Thrombocytopenia. 7. Chronic renal insufficiency. 8. Bilateral testicular atrophy. 9. Bilateral small nephrolithiasis. PLAN: 1. Bladder irrigation as needed. 2. Leave the Farooq catheter in place for at least 10 days. 3. I recommended following up on the patient's cultures and adjusting antibiotics if needed. 4. I defer the hematological and electrolyte abnormalities to the admitting physician. Thank you very much for involving us in the care of your patient. We will be happy to follow him along with you as well as an outpatient. Christiano Alvarez MD OH/MODL /[id number]
--- NOTE | 2019-12-08 16:46 | Progress Note ---
DATE: 12/07/2019 CONSULTING PHYSICIANS: 1. Dr. Artem Segovia with Cardiology. 2. Dr. William Wong with Surgery. 3. Dr. Arun Dukes with Pulmonology. 4. Dr. Rommel Valero with Gastroenterology. 5. Dr. Ruvalcaba with Nephrology. 6. Dr. Christiano Alvarez with Urology. 7. Dr. Carter with Infectious Disease. SUBJECTIVE: The patient is lying supine in bed. He has been having a considerable amount of leakage of ascites from the abdomen a copious amount. At this time, NG tube remains out. He has been having vomiting, flatus, but no BM. Per the RN, the patient likely dislodged his Farooq catheter by pulling it. He also pulled out his NG tube. The urine output is stopped. Order has been entered for Urology consult. He complains of abdominal pain 5/10 and has chills off and on. Otherwise, 14-point review of systems negative. PHYSICAL EXAMINATION: VITAL SIGNS: Temperature 98.1, heart rate 90, blood pressure 124/61, respirations 16, and oxygen saturation 98% on room air. GENERAL: Supine. LUNGS: Clear to auscultation with diminished bases. HEENT: EOMI. NECK: Supple. CARDIOVASCULAR: Regular rate and rhythm. No murmur. He has a right upper extremity PICC with octreotide drip at 25.1 mL/h and TPN at 85 mL an hour. ABDOMEN: Bowel sounds difficult to discern due to ascites. Abdomen is distended and tender. He has midline abdominal incision with lyndsey, leaking on considerable amount of ascites. Right NJ tube has subsequently been placed and now is to intermittent low wall suction. EXTREMITIES: No pitting edema, clubbing, cyanosis, or marked swelling. He has SCDs and no signs of DVT. NEUROLOGICAL: GCS 14-15, nonfocal, confused at times, pulling at lines. LABORATORY DATA: WBC 19.38, hemoglobin 9.9, hematocrit 32.9, and platelets 69. Sodium 140, potassium 4.5, chloride 115, CO2 of 16, BUN 39, creatinine 1.51, estimated GFR 47, glucose 150, calcium 8.0, phosphorus 4.2, and magnesium 2.1. PT 25.6, INR 2.15. Blood cultures x2 have been collected and any results are pending. CT of the abdomen and pelvis done today shows status post recent right hemicolectomy. Multiple loops of distended small bowel measured up to 4.8 cm maximum diameter with fluid-filled levels. No clear transition point. Hepatic cirrhosis and sequelae of portal hypertension with splenomegaly, ascites and upper abdominal portosystemic collaterals. Trace bilateral pleural effusions. Bilateral nonobstructive renal calculi. ASSESSMENT AND PLAN: 1. Status post laparoscopically assisted right colectomy for ascending colon mass. GI, Surgery and Infectious Disease to follow. Maintain n.p.o. status and continue TPN. Significant increase in WBCs noted. NG tube was placed by Dr. Wong twice today. The patient pulling at lines. NG tube placed to intermittent low wall suction. 500 mL of loren colored fluid has been obtained. He has been on cefoxitin. Appreciate recs from ID regarding antibiotic choice. 2. Anemia. Hemoglobin and hematocrit stable. Monitor. 3. Prolonged PT, INR. PT 25.6, INR 2.15. The patient received vitamin K last night. 4. Cirrhosis due to ETOH abuse. GI following. Encourage alcohol cessation. Continue lactulose. 5. Elevated total bilirubin 5.1 today and on 11/02 as well. 6. Acute kidney injury, likely due to acute tubular necrosis, possible hepatorenal syndrome type 2 due to cirrhosis. Creatinine 1.51 and Nephrology following, overall with a large amount of leakage of ascites from the abdomen. The fact that the patient still has blood coming from the NG tube and sudden elevation in WBCs. Consult made to Dr. Carter with Infectious Disease for antibiotic management. This may be coming from the wound as pus drainage is there. We will check blood culture and sensitivity x2 as well as urine. 7. Prophylaxis, Protonix. Billing code 87007. Time spent 35 minutes. Dictated by Gage Avila, [place] Johny Scott MD [facility]/MODL /[id number]
--- NOTE | 2019-12-08 17:01 | NUR ---
Nutrition Intervention Note RD Recommendation(s) for Physician: -Recommend TPN at a goal rate of 100 mL/hr with 25 gm/day lipids as appropriate to better meet nutritional needs (360 g dextrose: 30% dextrose, 120 g amino acids: 10% amino acids, and 25 gm/day lipids, 2400 mL total volume) provides 1929 kcal, 120 g protein at goal -Recommend advancing towards GI soft diet when medically appropriate Plan of Care: RD following, monitoring for tolerance and adequacy Nutrition reason for involvement: follow up RD Assessment 12/07: Follow up. Per RN, pt is confused and still has NG tube. 800 mL output recorded this morning. Pt was started on TPN. Recommendations provided. Will continue to monitor. 12/03: Follow up. Pt still has NGT with 500 mL drainage recorded last night. Recommend initiating parenteral nutrition since pt has been NPO/liquid diet since admission (11 days). Will continue to monitor. 12/01: Follow up. Pt was sleeping during my visit. Pt was getting frozen plasma through IV. NGT to suction, with 100ml drainage since this AM. Currently NPO day 3. No BM or flatus recorded since 11/29. Recommend PN since pt has been NPO or on liquid diet since admission. Will continue to follow. 11/28: Follow up. Pt discussed during MDR. Pt out of room at time of visit, in OR for R colectomy 2/2 colonic tumor. Pt NPO or on liquid diet since admit, if unable to advance diet post operatively recommend PN for adequate nutrition. Chart reviewed. Will continue to monitor. (11/24/19) Pt is a 59 year old male admitted with GI bleed, cirrhosis, colon mass, and esophageal varices. Pt reports he is tolerating clear liquid diet. Prior to admission, pt reports eating 50% of meals for the past week. Pt stated he usually weighs 188 lbs, but was unsure of when he last weighed this amount. Pt currently has a weight of 177 lbs in chart. No N/V noted. Offered pt a nutrition supplement, but he declined at this time. Will continue to monitor Principal Problems/Diagnoses: GI bleed, cirrhosis, colon mass, and esophageal varices PMH: asthma, liver cirrhosis, gout GI: ascitic abdomen, last recorded BM 11/28 Skin: intact Labs: 12/07: Na 141, BUN 56, Cr 1.80, Glu 133, Ca 7.7 12/03: Na 145, K 4.0, BUN 30, Cr 1.42, Glu 105 12/01 Cl 113 H, BUN 28 H, Creatinine 1.8 H, Glucose 128 H, Ca 8.0 L 11/28: Na 141, K 4.7, BUN 11, Cr 0.88, Gluc 95 (11/23) Na 138, BUN 40, Cr 1.41, Glu 136, Ca 7.5, AST 67 Meds: metoprolol, protonix, cefepime, lactulose, lasix, carafate, spironolactone, demerol, zofran Ht: 73 inches Wt: 177 lbs BMI: 23.4 kg/m2 IBW: 184 lbs Malnutrition Evaluation (11/24/19) The patient does not meet criteria for a specified degree of malnutrition at this time. Will re-evaluate at follow-up as appropriate. Nutrition Prescription (Diet Order): NPO, TPN @ 85 mL/hr and 25 gm lipids 3x/week (provides 1544 kcal and 102 g protein) Estimated Nutritional Needs: 9976-1272 calories/day (25-35 kcal/kg CBW) 80-120 g protein/day (1-1.5 g pro/kg CBW) Diet Adequacy: Not meeting calorie needs, meeting protein needs Tolerance: N/A NPO Diet Education Needs Assessment: Diet education not indicated. Nutrition Care Level: high Nutrition Diagnosis: Inadequate energy intake related to decreased ability to consume sufficient energy as evidenced by need for alternative means of nutrition. Goal: Patient will meet 75-100% of estimated needs by follow up Progress: progressing Interventions: -Composition, Rate, Route Monitoring/Evaluation: Total energy intake, Total protein intake, Formula/Solution, Weight change Signed: Niesha Posada, RD, LD
[2019-12-08 17:27] LABS: BASOPHILS # (AUTO) 0.1 (0.0-0.1); BASOPHILS % 0.4 % (0.0-1.0); EOSINOPHILS # (AUTO) 0.1 (0.0-0.4); EOSINOPHILS % 0.4 % (0.0-6.0); HEMATOCRIT 29.8 % (38.2-49.6); LYMPHOCYTES # (AUTO) 1.3 (1.0-3.2); LYMPHOCYTES % 5.7 % (18.0-39.1); MEAN CORPUSCULAR HEMOGLOBIN 30.4 pg (28-32); MEAN CORPUSCULAR HGB CONC 30.2 g/dL (31-35); MEAN CORPUSCULAR VOLUME 100.7 fL (81-99); MONOCYTES # (AUTO) 1.8 (0.2-0.8); MONOCYTES % 7.9 % (4.4-11.3); NEUTROPHILS # (AUTO) 18.9 (2.1-6.9); NEUTROPHILS % 84.3 % (38.7-80.0); PLATELET COUNT 72 x10e3/uL (140-360); RED BLOOD COUNT 2.96 x10e6/uL (4.3-5.7)
--- NOTE | 2019-12-08 17:36 | NUR ---
informed Dr. HERNANDEZ patient pulled out NGT and did not tolerate reinsertion x 2 attempts, orders to discontinue for now and monitor the patient for N/V.
--- NOTE | 2019-12-08 18:47 | Progress Note ---
DATE: 12/08/2019 SUBJECTIVE: The patient is lying supine in bed. He appears extremely ill overall. He denies being dizzy, has a mild headache, mild shortness of breath. Apparently, he was sick yesterday with nausea and vomiting. Difficult for patient to speak as he has a dry mouth. He continues to have a considerable amount of ascites from his abdominal incision. His gown and the bed linen are soaked. OBJECTIVE: VITAL SIGNS: Temperature 98.9, heart rate 91, blood pressure 112/66, respirations 16, oxygen saturation 96. GENERAL: Supine in bed. Awake and alert. LUNGS: Diminished bases. Respirations unlabored. HEENT: EOMI. NECK: Supple. CARDIOVASCULAR: Regular rate and rhythm. No murmur. He has right upper extremity PICC line with TPN infusing at 85 mL an hour and octreotide at 25.1 mcg/hour. ABDOMEN: Bounds sounds difficult to discern due to ascites fluid. He has a midline abdominal incision with copious amount of ascites output. Right NG tube with dark blood drainage. NG is to intermittent low wall suction. He has a Farooq catheter with dark israel/hematuria urine. EXTREMITIES: Without pitting edema. No clubbing or cyanosis. He has bilateral soft wrist restraints. NEUROLOGICAL: GCS 14-15. Confused at times, pulls at invasive lines. LABORATORY DATA: WBC 24.76, hemoglobin 9.6, hematocrit 31.8, platelets 75. Sodium 141, potassium 4.9, chloride 116, CO2 17, BUN 56, creatinine 1.8, estimated GFR 39, glucose 133, calcium 7.7. Urinalysis showed cloudy urine, specific gravity 1.02. Urine protein 2+, blood 4+, bilirubin 1+, leukocyte esterase 1+, RBC greater than 50, WBC 21-50, moderate amount of bacteria. Urine culture and sensitivity have been sent to the lab and final results are pending. RADIOLOGY: Chest x-ray today showed no radiographic abnormality of the lung hernandez, pulmonary vascular congestion. ASSESSMENT AND PLAN: 1. Status post laparoscopically assisted right colectomy for ascending colon mass. Surgery, GI and Infectious Disease following. Dr. Dukes and Dr. Carter spoke to the patient's and explained that his condition is very poor and his labs are worsening. She has opted to change his code status from full code to DNR. For now, continue n.p.o. status and continue TPN, changes made by Nephrology, positive flatus but no bowel movement. Monitor NG tube output. 2. Sepsis. Possible sources of sepsis might include spontaneous bacterial peritonitis, intraabdominal infection, UTI or pneumonia. Infectious Disease has been consulted and will follow. He is currently on Flagyl and cefepime and IV antibiotics. 3. Anemia. H and H are stable. Monitor. 4. Prolonged PT/INR. Received vitamin K recently. Continue octreotide drip. Monitor coags. 5. Cirrhosis due to EtOH abuse. Multiple clinicians have encouraged the patient to stop drinking alcohol. GI following. 6. Elevated total bilirubin, acute kidney injury, likely due to acute tubular necrosis, possible hepatorenal syndrome type 2 due to cirrhosis. Creatinine is 1.8, possible hepatorenal syndrome type 2 due to cirrhosis. Nephrology pending dispo. The patient will remain on the floor as he is very short of breath. 7. Prophylaxis, Protonix. Billing code 64803. Time spent 35 minutes. We will order for artificial saliva every 2 hours as needed. Dictated by Gage Avila NP Johny Scott MD HWP/MODL /[id number]
--- NOTE | 2019-12-08 19:01 | Consultation ---
DATE OF CONSULTATION: 12/07/2019 HISTORY OF PRESENT ILLNESS: The patient who has history of alcoholism has been sick for the last two years. The patient comes in to the emergency room on November 29 with abdominal discomfort. The patient has history of liver cirrhosis. He recently had hemicolectomy. He was admitted from Dr. Salinas office for low blood count, GI bleed, and anemia. He had a CAT scan showed colon mass, underwent right sided hemicolectomy. The patient was admitted. He does have history of asthma, liver cirrhosis, gout, osteoarthritis, L4 laminectomy, tonsillectomy, and hemicolectomy. The patient was admitted. He was given steroid. He was seen by Dr. Wong on November 29 and underwent a second-look laparotomy with removal of packing. The patient was seen by Cardiology. The patient who has asthma, liver cirrhosis. He is sinus tachycardic. I was asked to see him urgently because of worsening of his WBC. The patient who is really not a good source of information. PHYSICAL EXAMINATION: GENERAL: He is altered. VITAL SIGNS: Stable, currently afebrile. HEENT: Pale, icteric. Otherwise normocephalic. NECK: Supple. CHEST: Crackles bilateral. HEART: S1-S2. No murmurs. ABDOMEN: Soft. Distended. LABORATORY DATA: His white count jumped up to 3.38 from 8.3, hemoglobin 9, and hematocrit 32. Sodium 140, potassium 4.5 with creatinine 1.5. He had a CT scan of abdomen and pelvis, which reviewed. IMPRESSION: Sepsis, concerned about intraabdominal source. There is no abscess. This could be peritonitis versus other. Colitis is less likely, but possibility is there. RECOMMENDATIONS: 1. Blood cultures, urine cultures. We will put him on cefepime and Flagyl. We will adjust for his kidney function. Prognosis is extremely poor. Discussed with the medical team. 2. Discussed with the family, his . Recheck CBC. Recheck Chem panel. 3. Electrolyte management, fluid management as above. Discussed with Critical Care. MD DEISI Yeboah/MODL /[id number]
[2019-12-08] MEDS ORDERED: CENTRAL TPN FORMULA 1 BAG IV SCH (20:00)
[2019-12-08] MEDS: CEFEPIME 2 GM/NS 0.9% 100 ML 100 ML IV SCH (20:05)
[2019-12-09] VITALS (7 sets, daily range): BP systolic 113–129; BP diastolic 52–67
[2019-12-09] MEDS: ALBUMIN 25% 25GM 100ML 100 ML IV SCH ×4 (02:01→20:12)
[2019-12-09] MEDS: METOPROLOL TARTRATE INJ 1 MG/ML VIAL IV SCH ×4 (02:01→20:13)
[2019-12-09] MEDS: SALIVA SUBSTITUTE 45 ML LIQD MM SCH ×6 (02:01→22:45)
[2019-12-09] MEDS: SUCRALFATE 1 GM/10 ML SUSP NG SCH ×4 (04:59→23:31)
[2019-12-09] MEDS: METRONIDAZOLE 500MG/NS 100ML 100 ML IV SCH ×3 (06:00→22:45)
[2019-12-09 06:40] LABS: BASOPHILS % 0.3 % (0.0-1.0); EOSINOPHILS # (AUTO) 0.2 (0.0-0.4); EOSINOPHILS % 1.4 % (0.0-6.0); HEMATOCRIT 24.2 % (38.2-49.6); HEMOGLOBIN 7.4 g/dL (14.0-18.0); LYMPHOCYTES % 6.3 % (18.0-39.1); MEAN CORPUSCULAR HEMOGLOBIN 30.7 pg (28-32); MEAN CORPUSCULAR HGB CONC 30.6 g/dL (31-35); MEAN CORPUSCULAR VOLUME 100.4 fL (81-99); MONOCYTES # (AUTO) 1.1 (0.2-0.8); MONOCYTES % 7.3 % (4.4-11.3); NEUTROPHILS # (AUTO) 12.9 (2.1-6.9); NEUTROPHILS % 83.8 % (38.7-80.0); PLATELET COUNT 65 x10e3/uL (140-360); RED BLOOD COUNT 2.41 x10e6/uL (4.3-5.7); RED CELL DISTRIBUTION WIDTH 21.7 % (11.7-14.4)
[2019-12-09 06:55] LABS: INR 1.88
[2019-12-09 07:07] LABS: ALBUMIN 2.4 g/dL (3.5-5.0); ALBUMIN/GLOBULIN RATIO 0.9 (0.8-2.0); ANION GAP 11.2 mmol/L (8-16); CALCIUM 7.5 mg/dL (8.4-10.2); CREATININE, SERUM 1.83 mg/dL (0.72-1.25); POTASSIUM 4.2 mmol/L (3.5-5.1)
[2019-12-09] MEDS: OCTREOTIDE ACETATE 500 MCG in SODIUM CHLORIDE 0.9% 250ML 250 ML IV SCH ×2 (07:12→15:17)
--- NOTE | 2019-12-09 07:32 | NUR ---
informed Dr. Valero of H/H results, no new orders. Will continue to monitor
[2019-12-09] MEDS: ALLOPURINOL 100 MG TAB PO SCH ×2 (07:57→17:12)
[2019-12-09] MEDS: SPIRONOLACTONE 25 MG TAB PO SCH (07:57)
[2019-12-09] MEDS: PANTOPRAZOLE 40 MG 10ML VIAL IV SCH ×2 (08:00→20:13)
--- NOTE | 2019-12-09 10:04 | Operative Report ---
DATE OF PROCEDURE: 11/29/2019 SURGEON: William Wong MD PREOPERATIVE DIAGNOSIS: Right colonic tumor. POSTOPERATIVE DIAGNOSIS: Right colonic tumor. OPERATIVE PROCEDURE: Right colectomy. ANESTHESIA: General. INDICATION: The patient is a 59-year-old male with known history of right colonic tumor nonobstructing accounting for his chronic anemia, requiring multiple packed red blood cell transfusions. The patient also has history of liver cirrhosis with ascites and he has been prepared for surgery with IV fluid and fresh frozen plasma to correct his coagulopathy. All attendant risks have been discussed with the patient preoperatively including bleeding, infection, liver decompensation. PROCEDURE FINDING: Cirrhotic liver with ascites and portal hypertension. Right colonic tumor in the upper ascending colon. DESCRIPTION OF PROCEDURE: The patient was brought to OR intubated, abdomen prepped and draped in sterile fashion. A supraumbilical incision is made and a 5 mm port inserted under direct vision. Other ports were placed in the epigastric and right lower quadrant. Laparoscopic examination revealed ascites in the peritoneal cavity with cirrhosis of the liver and portal hypertension. We proceeded to take down the right colon by dividing the white line of Toldt and take down the hepatic flexure using the LigaSure instrument. The tissue was friable and bleeding is hard to control laparoscopically. We converted to open through a midline incision starting at the xiphoid down to below the umbilicus. Entering the peritoneal cavity, oozing from the liver area was encountered. After taking down the hepatic flexure, this was packed with lap gauze as we proceeded to mobilize the right colon completely starting from the ileocecal valve and transecting the terminal ileum 5 cm proximal to the ileocecal valve with a JOAQUIN stapler. The appendix and cecum and then the ascending colon was mobilized in a lateral medial approach as we approached the hepatic flexure using combination of cauterizations and ligature. The transverse colon was also mobilized. There was some bleeding from the medial aspect of the gallbladder, which was controlled temporarily with lap pads as we mobilized the colon to the mid transverse level and transect the colon at that mid transverse colon point with a JOAQUIN stapler. The mesentery controlled with ligature and the right colon removed completely. Operative field was irrigated. Oozing from the retroperitoneum and the gallbladder is encountered and attempt to control with cauterization and Surgicel is unsuccessful. At this point, decision is made to complete the anastomosis using the JOAQUIN stapler and TL60 instrument. Completed the anastomosis using hand-sewn technique of two layers running stitch, 3-0 Vicryl for inner layers and Lembert stitch of 3-0 silk for the external layer. After the completion of the anastomosis from the ileum to the transverse colon, we proceeded to pack the retroperitoneum in the area of the liver with several lap pads for tamponading effect as the patient has been losing blood steadily from the oozing with failure to control using ordinary means. After hemostasis achieved with packing, we proceeded to close the abdomen with running #1 PDS approximating the fascia and the skin with clips. The patient was then extubated and transported to ICU in guarded condition with plan for return to the OR for removal of lap pads in 24 hours. Estimated blood loss during the surgery was 500 mL. MD WARD Paula/LIOR /[id number]
--- NOTE | 2019-12-09 11:11 | Diagnostic Imaging Report ---
PROCEDURE: Ultrasound-guided paracentesis Procedural Personnel Attending physician(s): Elroy Olsen MD Pre-procedure diagnosis: Ascites Post-procedure diagnosis: Unchanged Indication: Ascites with pain or pressure symptoms Additional clinical history: None Complications: No immediate complications. IMPRESSION: Ultrasound-guided paracentesis with drainage of 700 mL of serous fluid. Plan: Resume care by clinical team. PROCEDURE SUMMARY: - Limited abdominal ultrasound - Ultrasound-guided paracentesis - Additional procedure(s): None PROCEDURE DETAILS: Pre-procedure Consent: Informed consent for the procedure including risks, benefits and alternatives was obtained and time-out was performed prior to the procedure. Preparation: The site was prepared and draped using maximal sterile barrier technique including cutaneous antisepsis. Anesthesia/sedation Level of anesthesia/sedation: None Initial abdominal ultrasound Initial abdominal ultrasound was performed. Findings: Small ascites. A safe window for paracentesis was identified. Paracentesis Local anesthesia was administered. The peritoneal cavity was accessed and fluid return confirmed position. Ascites was drained. The catheter was then removed, and a sterile bandage was applied. Paracentesis access technique: Real-time ultrasound guidance. Catheter placed: 5Fr Yueh Post-drainage ultrasound: No visible ascites Additional Details Additional description of procedure: None Equipment details: None Specimens removed: Abdominal fluid Estimated blood loss (mL): Minimal (<10cc) Standardized report: [id number] Attestation Signer name: Elroy Olsen MD I attest that I was present for the entire procedure. I reviewed the stored images and agree with the report as written. Signed by: Elroy Olsen MD on 12/09/2019 11:08 AM
--- NOTE | 2019-12-09 11:59 | Progress Note ---
DATE: 12/09/2019 SUBJECTIVE: The patient is seen and evaluated. Discussed with the nurse. Discussed with the patient. Discussed with the patient's . Questions answered. REVIEW OF SYSTEMS: The patient feels better. No nausea, vomiting, fever, or chills. Has abdominal distention. Telling me he had fluid taken out of his abdomen today and started on clear liquids. PHYSICAL EXAMINATION: VITAL SIGNS: Temperature 98.2, pulse 95, respiration 20, and blood pressure 126/67. GENERAL: Alert and oriented. NG tube is removed. The patient is started on clear liquids by General Surgery. CV: S1 and S2. CHEST: Equal expansion. Decreased breath sounds. No acute distress. ABDOMEN: Distended tight a little bit. No tenderness and has had loose stool this morning. HEENT: Moist. No pallor. No JVD. EXTREMITIES: Moves all. No acute distress. MEDICATIONS: Reviewed and from ID point of view, the patient is on cefepime and Flagyl. LABORATORY STUDIES: White count improved from 22.42 to 15.34, hemoglobin 7.4 down from 9 with a platelet count of 65, down from 72. Sodium 143, potassium 4.2, and creatinine 1.83, seems to be stable since yesterday, which was 1.8. I have reviewed creatinine since admission. It ranges from 0.88 to 4.87, but gradual improvement. RADIOLOGY STUDIES: Chest x-ray on 12/07, showed no radiographic abnormality of the lung hernandez. Also showed pulmonary vascular congestion. ASSESSMENT AND PLAN: 1. Sepsis. 2. Concern intra-abdominal. 3. Hepatic cirrhosis. 4. Status post hemicolectomy with history of colonic mass. Leukocytosis improved. Current loose bowel movements, but no diarrhea. Continue with cefepime and Flagyl. The patient is status post paracentesis, pending culture and sensitivity. Blood culture from 12/06 is negative 24 hours. Clinically looks better since yesterday. Monitor the patient clinically and follow up with the labs. Refer to chart please for more information. Dictated by Twin Wagner PA-C (Al) Mode Carter MD /MODL /[id number]
[2019-12-09 13:15] LABS: BODY FLUID COLOR RED; BODY FLUID TYPE ABDOMINAL
[2019-12-09 13:16] LABS: BODY FLUID APPEARANCE CLOUDY
[2019-12-09 13:18] LABS: RBC,BODY FLUID 4840 cells/uL; WBC,BODY FLUID 1485 cells/uL
--- NOTE | 2019-12-09 14:00 | Progress Note ---
DATE: 12/09/2019 SUBJECTIVE: The patient went for ultrasound-guided paracentesis. He feels better. He has less obtundation. He has no fever. PHYSICAL EXAMINATION: VITAL SIGNS: The blood pressure is 126/67, pulse is 95 and saturation is 97%. HEENT: No facial swelling or erythema. CARDIAC: Regular rate and rhythm with normal S1, S2. LUNGS: Auscultation of lungs reveals decreased breath sounds at the bases. There is no wheezing. ABDOMEN: Soft, nontender. There is no rebound or guarding. EXTREMITIES: No leg edema or calf tenderness. There is no cyanosis or clubbing. SKIN: No rashes. LABORATORY DATA: White blood cell count is 15.3 and hemoglobin 7.4. The platelet count is 65. BUN to creatinine ratio is 63 to 1.83. Other electrolytes are within normal limits. Total bilirubin is 2.7. IMPRESSION: 1. Leukocytosis and sepsis of unclear source. 2. Status post hemicolectomy for ascending colon mass. 3. Cirrhosis and portal hypertension. 4. Metabolic encephalopathy. 5. Anemia. PLAN: 1. Continue current antibiotics. 2. Monitor renal function. 3. Continue current regimen for cirrhosis. 4. Out of bed as tolerated. 5. Physical therapy. 6. The patient is now DNR. 7. Possible transfer to [facility]. Arun Dukes MD [facility]/GÉNESISL /[id number]
--- NOTE | 2019-12-09 14:06 | NUR ---
ORDER RECEIVED FOR AN LTACH. CALL TO [facility] FOR LIST OF LTAC'S IN NETWORK. SPOKE Ramo RUBALCAVA. FAX # GIVEN. STATES SHE WILL FAX A LIST SHORTLY.
--- NOTE | 2019-12-09 14:30 | NUR ---
CALL TO PT'S ; VINH ESCAMILLA. DISCUSSED CHOICE FOR PLAN. CHOSE [facility] FROM LIST, BUT THERE IS NO LTAC IN [place]. LEFT CHOICE W [facility] WILL FAX TO [facility] AND LET [facility] ASSESS IF THEY ARE ABLE TO ACCEPT. CHOICE LETTER WAS SIGNED AND MOT WAS INITIATED. Addendum: 12/10/19 at 1623 by Sharon Bull CM REFERRAL WAS FAXED TO [facility] @ [phone]
--- NOTE | 2019-12-09 14:30 | Progress Note ---
DATE: 12/09/2019 Renal Progress Note SUBJECTIVE: The patient is doing much better. He appears confused today. No overnight events. PHYSICAL EXAMINATION: VITAL SIGNS: Temperature is 98.2, pulse 95, respiratory rate is 20, blood pressure 126/69, and pulse ox 97% on room air. GENERAL: Not in acute distress. Alert and oriented x3. Cooperative on examination. HEENT: Head; normocephalic, atraumatic. Eyes; pupils are equal, round, and reactive to light bilaterally. Extraocular movements intact bilaterally. Throat; no evidence of erythema or exudates in the posterior pharynx. Has poor dentition. NECK: Supple. Good range of motion. PULMONARY: Clear to auscultation bilaterally. No wheezing, no rales, no rhonchi, no crackles appreciated. CARDIOVASCULAR: Positive S1 and S2. No murmurs, rubs, or gallops appreciated. ABDOMEN: Soft, nondistended, and nontender to palpation. Bowel sounds present. MUSCULOSKELETAL: Strength is 5/5 throughout. No evidence of any muscle deficits on examination. No weakness appreciated. SKIN: Intact. Warm to touch. Good cap refill. PSYCHIATRIC: Normal affect and mood. EXTREMITIES: No edema. Good range of motion throughout. LABORATORY DATA: CBC; white count 15, hemoglobin 7.4, hematocrit is 24, and platelet 65. Chemistry; sodium 143, potassium 4.2, chloride 121, bicarb 15, anion gap of 11, BUN is 63, and creatinine is 1.83. Body fluid pending. MICROBIOLOGY: Gram stain and body fluid is pending. IMPRESSION: 1. Acute kidney injury secondary to acute tubular necrosis from underlying hypotension, now worsening renal function of BUN. 2. Hepatorenal syndrome type 2. 3. Metabolic acidosis. 4. Status post right hemicolectomy with colon mass. 5. Anemia/thrombocytopenia. 6. Moderate protein-calorie malnutrition. 7. Abdominal ascites, status post paracentesis. PLAN: At this time, his urine output is good. His renal function did go up as well as his BUN. He underwent a paracentesis. His vitals were stable. I discussed with the that his renal function did go up and it has gone up. He did have some episodes of low blood pressures last night, systolically in the 80s, which could be playing a role in his rise in creatinine. We will continue with IV TPN. Stat labs have been ordered as well as labs in the morning including magnesium. MD ALEXI Christian/LIOR /[id number]
--- NOTE | 2019-12-09 15:18 | NUR ---
abdominal dressing changed, patient leaking profusely while ambulating with PT in hallway, patient assisted back to bed and linens and gown changed. at bedside will continue to monitor.
[2019-12-09] MEDS: MEPERIDINE HCL INJ 25 MG/ML VIAL IV PRN (17:20)
[2019-12-09 17:25] LABS: LYMPHOCYTES,BODY FLUID 6 %; MONO/MACROPHG,BODY FLUID 5 %; NEUTROPHILS,BODY FLUID 87 %; OTHER CELLS,BODY FLUID 2 %
[2019-12-09] MEDS: CENTRAL TPN FORMULA 1 BAG IV SCH (21:29)
[2019-12-09] MEDS: CEFEPIME 2 GM/NS 0.9% 100 ML 100 ML IV SCH (21:57)
[2019-12-09] MEDS: HYDROCODONE/APAP 5MG-325MG TAB PO PRN (23:31)
[2019-12-10] VITALS (8 sets, daily range): BP systolic 108–123; BP diastolic 54–94
[2019-12-10] MEDS: OCTREOTIDE ACETATE 500 MCG in SODIUM CHLORIDE 0.9% 250ML 250 ML IV SCH ×2 (02:49→17:32)
[2019-12-10] MEDS: MEPERIDINE HCL INJ 25 MG/ML VIAL IV PRN ×2 (03:10→21:30)
[2019-12-10] MEDS: METOPROLOL TARTRATE INJ 1 MG/ML VIAL IV SCH ×4 (03:27→21:46)
[2019-12-10] MEDS: SALIVA SUBSTITUTE 45 ML LIQD MM SCH ×6 (03:28→23:30)
[2019-12-10 04:42] LABS: BASOPHILS % 0.3 % (0.0-1.0); EOSINOPHILS # (AUTO) 0.2 (0.0-0.4); HEMATOCRIT 22.1 % (38.2-49.6); LYMPHOCYTES # (AUTO) 0.7 (1.0-3.2); LYMPHOCYTES % 7.9 % (18.0-39.1); MEAN CORPUSCULAR HEMOGLOBIN 31.2 pg (28-32); MEAN CORPUSCULAR HGB CONC 30.3 g/dL (31-35); MEAN CORPUSCULAR VOLUME 102.8 fL (81-99); MONOCYTES # (AUTO) 0.9 (0.2-0.8); MONOCYTES % 9.8 % (4.4-11.3); NEUTROPHILS # (AUTO) 7.1 (2.1-6.9); NEUTROPHILS % 79.3 % (38.7-80.0); PLATELET COUNT 51 x10e3/uL (140-360); RED BLOOD COUNT 2.15 x10e6/uL (4.3-5.7)
[2019-12-10 04:58] LABS: ANION GAP 10.1 mmol/L (8-16); CALCIUM 7.6 mg/dL (8.4-10.2); CREATININE, SERUM 1.72 mg/dL (0.72-1.25); MAGNESIUM 1.6 MG/DL (1.3-2.1); POTASSIUM 4.1 mmol/L (3.5-5.1)
[2019-12-10 05:02] LABS: HEMOGLOBIN 6.7 g/dL (14.0-18.0)
--- NOTE | 2019-12-10 05:06 | NUR ---
PATIENT HGB AT 6.[address] CHILD AND WAS ORDERED TO GIVE 2 UNITS PRBCS PT NEEDS TYPE AND SCREEN AGAIN CONSENT ALREADY IN THE CHART. WILL CONT TO MONITOR.
[2019-12-10] MEDS ORDERED: SODIUM CHLORIDE 0.9% 250ML 250 ML IV ONE (05:15)
[2019-12-10] MEDS: SUCRALFATE 1 GM/10 ML SUSP NG SCH ×3 (05:30→17:21)
[2019-12-10] MEDS: METRONIDAZOLE 500MG/NS 100ML 100 ML IV SCH ×3 (05:30→22:00)
[2019-12-10] MEDS: HYDROCODONE/APAP 5MG-325MG TAB PO PRN (05:30)
[2019-12-10] MEDS ORDERED: SODIUM CHLORIDE 0.9% 250ML 250 ML IV PRN ×2 (05:30)
[2019-12-10] MEDS ORDERED: PHYTONADIONE 10 MG/ML AMP IV ONE (07:15)
[2019-12-10 07:38] LABS: ANISOCYTOSIS MODERATE; BURR CELLS SLIGHT; OVALOCYTES FEW
[2019-12-10 07:40] LABS: ELLIPTOCYTE, RBC SLIGHT; MICROCYTOSIS SLIGHT; SCHISTOCYTES RARE
[2019-12-10 07:41] LABS: PLATELET ESTIMATE MARKEDLY DECREASED; PLATELET MORPHOLOGY COMMENT NORMAL; RBC MORPHOLOGY COMMENT ABNORMAL
[2019-12-10] MEDS ORDERED: PHYTONADIONE 10MG/ML 20 MG in SODIUM CHLORIDE 0.9% 100 ML IV ONE (08:00)
[2019-12-10] MEDS: ALLOPURINOL 100 MG TAB PO SCH ×2 (09:00→17:00)
[2019-12-10] MEDS: SPIRONOLACTONE 25 MG TAB PO SCH (09:00)
[2019-12-10] MEDS: PANTOPRAZOLE 40 MG 10ML VIAL IV SCH ×2 (09:38→21:39)
--- NOTE | 2019-12-10 10:24 | Progress Note ---
DATE: 12/10/2019 SUBJECTIVE: The patient is seen and evaluated. Available labs and notes reviewed. Discussed with the nurse. The patient is currently comfortable in bed. Discussed with the nurse. No new events. The patient is currently on full liquid diet and also remains on TPN. No events overnight. OBJECTIVE: VITAL SIGNS: Temperature 98.8. The patient remains afebrile. Pulse 72, respiration 12, blood pressure 110/63. GENERAL: Comfortable in bed, in no acute distress. CV: S1, S2. CHEST: Equal expansion. Decreased breath sounds. No acute distress. ABDOMEN: Distended. Positive bowel sounds. Wound on local care. HEENT: Moist. No pallor. No JVD. EXTREMITIES: No edema. Weak. MEDICATIONS: Reviewed, from ID point of view, the patient is on Flagyl and cefepime. LABORATORY STUDIES: White count of 8.94, hemoglobin 6.7, platelets 51, down from 65 yesterday. Sodium 143, potassium 4.1 creatinine 1.72. SEROLOGY: Coronavirus PCR not detected. On 12/09/2019, AST is 23, ALT is 10 with an ALP of 51. MICROBIOLOGY: Fluid culture negative so far on 12/09/2019. Blood cultures 12/07/2019 negative. Urine culture 12/08/2019 negative. IMAGING: No new radiology studies available. ASSESSMENT AND PLAN: 1. Sepsis with concerning intraabdominal. 2. Hepatic cirrhosis. 3. Colon mass-status post hemicolectomy. 4. Leukocytosis, resolved. 5. Anemia. 6. Thrombocytopenia. 7. Protein calorie-malnutrition with albumin level of 2.4. 8. Currently on TPN and also on full liquid diet, monitor the patient for nausea and vomiting. Per my discussion with the staff, the patient was on full liquid diet couple of days ago and he did not tolerate. Continue with antibiotics as planned. Overall guarded prognosis. The patient's code status changed to DNR and LTAC in the talks. Discussed with attending team. Please refer to chart for more information. Discussed with Dr. Carter in details. Dictated by Twin Wagner PA-C (Al) Mode Carter MD /MODL /[id number]
[2019-12-10] MEDS ORDERED: SODIUM CHLORIDE 0.9% 250ML 250 ML ONE (12:19)
--- NOTE | 2019-12-10 13:41 | NUR ---
Spoke to Dr. Wong regarding physical therapy. States he does not want patient to participate with therapy at this time. Will hold for now. Will need new orders to resume care when medically stable. Discussed with RN. Thank you. Addendum: 12/10/19 at 1342 by TEN PRATT PT Amended: Links added.
--- NOTE | 2019-12-10 16:07 | NUR ---
Nutrition Intervention Note RD Recommendation(s) for Physician: -Recommend TPN at a goal rate of 100 mL/hr with 25 gm/day lipids as appropriate to better meet nutritional needs (360 g dextrose: 30% dextrose, 120 g amino acids: 10% amino acids, and 25 gm/day lipids, 2400 mL total volume) provides 1929 kcal, 120 g protein at goal -Recommend advancing towards GI soft diet when medically appropriate Plan of Care: RD following, monitoring for tolerance and adequacy Nutrition reason for involvement: follow up RD Assessment 12/09: Follow up. RN reports pt remains confused and had pulled out his NG tube. Pt was started on a clear liquid diet which RN stated pt is tolerating. Pt remains on TPN. Will continue to monitor. 12/07: Follow up. Per RN, pt is confused and still has NG tube. 800 mL output recorded this morning. Pt was started on TPN. Recommendations provided. Will continue to monitor. 12/03: Follow up. Pt still has NGT with 500 mL drainage recorded last night. Recommend initiating parenteral nutrition since pt has been NPO/liquid diet since admission (11 days). Will continue to monitor. 12/01: Follow up. Pt was sleeping during my visit. Pt was getting frozen plasma through IV. NGT to suction, with 100ml drainage since this AM. Currently NPO day 3. No BM or flatus recorded since 11/29. Recommend PN since pt has been NPO or on liquid diet since admission. Will continue to follow. 11/28: Follow up. Pt discussed during MDR. Pt out of room at time of visit, in OR for R colectomy 2/2 colonic tumor. Pt NPO or on liquid diet since admit, if unable to advance diet post operatively recommend PN for adequate nutrition. Chart reviewed. Will continue to monitor. (11/24/19) Pt is a 59 year old male admitted with GI bleed, cirrhosis, colon mass, and esophageal varices. Pt reports he is tolerating clear liquid diet. Prior to admission, pt reports eating 50% of meals for the past week. Pt stated he usually weighs 188 lbs, but was unsure of when he last weighed this amount. Pt currently has a weight of 177 lbs in chart. No N/V noted. Offered pt a nutrition supplement, but he declined at this time. Will continue to monitor Principal Problems/Diagnoses: GI bleed, cirrhosis, colon mass, and esophageal varices PMH: asthma, liver cirrhosis, gout GI: ascetic, large, round, tender abdomen last recorded BM 12/08 Skin: intact Labs: 12/09: Na 143, K 4.1, BUN 56, Cr 1.72, Glu 134, Ca 7.6 12/07: Na 141, BUN 56, Cr 1.80, Glu 133, Ca 7.7 12/03: Na 145, K 4.0, BUN 30, Cr 1.42, Glu 105 12/01 Cl 113 H, BUN 28 H, Creatinine 1.8 H, Glucose 128 H, Ca 8.0 L 11/28: Na 141, K 4.7, BUN 11, Cr 0.88, Gluc 95 (11/23) Na 138, BUN 40, Cr 1.41, Glu 136, Ca 7.5, AST 67 Meds: carafate, metoprolol, Demerol, antibiotic, lactulose, lasix, zofran Ht: 73 inches Wt: 177 lbs BMI: 23.4 kg/m2 IBW: 184 lbs Malnutrition Evaluation (11/24/19) The patient does not meet criteria for a specified degree of malnutrition at this time. Will re-evaluate at follow-up as appropriate. Nutrition Prescription (Diet Order): NPO, TPN @ 85 mL/hr and 25 gm lipids 3x/week (provides 1544 kcal and 102 g protein) Estimated Nutritional Needs: 6641-8781 calories/day (25-35 kcal/kg CBW) 80-120 g protein/day (1-1.5 g pro/kg CBW) Diet Adequacy: Not meeting calorie needs, meeting protein needs Tolerance: tolerating clear liquid diet Diet Education Needs Assessment: Diet education not indicated. Nutrition Care Level: high Nutrition Diagnosis: Inadequate energy intake related to decreased ability to consume sufficient energy as evidenced by need for alternative means of nutrition. Goal: Patient will meet 75-100% of estimated needs by follow up Progress: progressing Interventions: -Composition, Rate, Route, fiber-modified diet Monitoring/Evaluation: Total energy intake, Total protein intake, Formula/Solution, modified diet, Weight change Signed: Niesha Posada, RD, LD
--- NOTE | 2019-12-10 16:14 | Progress Note ---
DATE: 12/10/2019 Nephrology Progress Note SUBJECTIVE: The patient is doing well today. He is alert, awake, and oriented on examination. is at bedside. Answered all their questions. PHYSICAL EXAMINATION: VITAL SIGNS: Temperature 98.8, pulse 72, respiratory rate is 16, blood pressure 110/63, and pulse ox 97% on room air. GENERAL: Not in acute distress. Alert and oriented x3. Cooperative on examination. HEENT: Head; normocephalic, atraumatic. Eyes; pupils are equal, round, and reactive to light bilaterally. Extraocular movements intact bilaterally. Throat; no evidence of erythema or exudates in the posterior pharynx. Has poor dentition. NECK: Supple. Good range of motion. PULMONARY: Clear to auscultation bilaterally. No wheezing, no rales, no rhonchi, no crackles appreciated. CARDIOVASCULAR: Positive S1 and S2. No murmurs, rubs, or gallops appreciated. ABDOMEN: Soft, nondistended, and nontender to palpation. Bowel sounds present. MUSCULOSKELETAL: Strength is 5/5 throughout. No evidence of any muscle deficits on examination. No weakness appreciated. SKIN: Intact. Warm to touch. Good cap refill. PSYCHIATRIC: Normal affect and mood. EXTREMITIES: No edema. Good range of motion throughout. LABORATORY FINDINGS: Show white count 8.9, hemoglobin 6.7, hematocrit is 22, and platelets of 51. Chemistry; sodium 143, potassium 4.1, chloride 122, bicarbonate 15, anion gap of 10, BUN is 56, creatinine is 1.72, glucose 134, magnesium 1.6. IMAGING STUDIES: None. IMPRESSION: 1. Acute kidney injury secondary to acute tubular necrosis from underlying hypotension, now his renal function is improving. 2. Hepatorenal syndrome type 2. 3. Metabolic acidosis secondary to liver cirrhosis. 4. Status post right hemicolectomy with colon mass. 5. Anemia/thrombocytopenia. 6. Moderate protein-calorie malnutrition. 7. Abdominal ascites, status post paracentesis. PLAN: At this time, urine output is good. Renal function downtrending. Lytes are stable. Blood pressure seems to be on the lower, as midodrine 5 mg p.o. t.i.d. scheduled. Albumin has been completed. Continue with IV TPN for now, as he is not eating a whole lot. Discussed plan of care with nursing staff, the patient, and the patient's at bedside. MD ALEXI Christian/LIOR /[id number]
--- NOTE | 2019-12-10 16:20 | NUR ---
FOLLOW UP CALL TO JANINA. NELA IBARRA. STATES THEY ARE STILL AWAITING AUTH. WILL PROBABLY RECEIVE ON FRIDAY.
[2019-12-10] MEDS: MIDODRINE HCL 5 MG TABLET PO SCH ×2 (16:55→18:36)
--- NOTE | 2019-12-10 18:25 | Progress Note ---
DATE: 12/10/2019 SUBJECTIVE: The patient has a low blood count again. He is more awake. He is awaiting possible transfer to LTAC. He is asking for ice chips. PHYSICAL EXAMINATION: VITAL SIGNS: The blood pressure is 117/63 and the pulse is 76. Saturation is 95%. HEENT: Shows no facial swelling or erythema. CARDIAC: Reveals regular rate and rhythm with normal S1 and S2. LUNGS: Auscultation of lungs reveals decreased breath sounds at the bases. ABDOMEN: Soft. It is nontender. The incision is bandaged. NEUROLOGIC: He is more awake. He still complains of weakness. LABORATORY DATA: Hemoglobin is 6.7 and the platelet count is 51. BUN to creatinine ratio is 56 to 1.72. Carbon dioxide is 17 and the chloride is 122. IMPRESSION: 1. Acute kidney injury. 2. Cirrhosis with portal hypertension. 3. Status post right hemicolectomy with colonic mass. 4. Thrombocytopenia. 5. Qgkhm-al-rmyqvkm anemia. 6. Moderate protein-calorie malnutrition. PLAN: 1. Consider a packed red blood cells. 2. Continue TPN. 3. Continue current treatment for cirrhosis. 4. Physical therapy. 5. Possible transfer to LTAC. Arun Dukes MD [facility]/MODL /[id number]
--- NOTE | 2019-12-10 18:30 | Progress Note ---
DATE: 12/10/2019 Cardiology Progress Note SUBJECTIVE: The patient is awake, alert, and follows simple commands and answers simple questions appropriately. OBJECTIVE: VITAL SIGNS: Stable. Blood pressure is 108/60, oxygen saturation is 97% on 2 L per minute nasal cannula, his heart rate is 75 beats per minute. NECK: There is no increased jugular venous distention. LUNGS: Exam showed decreased breath sounds in both bases. CARDIOVASCULAR: Regular rate and rhythm and there is a systolic murmur at the base of the heart that is heard throughout the precordium. ABDOMEN: Distended with ascites. EXTREMITIES: No leg edema. CARDIOVASCULAR MEDICATIONS: Reviewed, they are: 1. Oral metoprolol. 2. Furosemide 20 mg IV every 3 hours as needed. 3. Spironolactone 25 mg daily. LABORATORY DATA: Reviewed. TELEMETRY: Shows a 16 seconds of SVT at a rate of 158 beats per minute. Asymptomatic. No other arrhythmias occurred in the last 24 hours. ASSESSMENT: 1. Paroxysmal supraventricular tachycardia. 2. Gastrointestinal bleeding and liver cirrhosis. 3. Colon mass, status post partial colectomy. 4. Anemia. 5. Thrombocytopenia. 6. Encephalopathy. 7. Abnormal urinalysis test. PLAN: 1. Continue beta velma dosing. 2. Monitor the recurrence of SVT closely. 3. Anemia, the patient is receiving 2 units of packed red blood cells today. 4. Protein calorie malnutrition, receiving TPN. Lillian Plata MD [facility]/MODL /[id number]
[2019-12-10] MEDS: CENTRAL TPN FORMULA 1 BAG IV SCH (20:30)
[2019-12-10] MEDS: CEFEPIME 2 GM/NS 0.9% 100 ML 100 ML IV SCH (21:39)
[2019-12-11] VITALS (9 sets, daily range): BP systolic 89–120; BP diastolic 55–67
[2019-12-11] MEDS: OCTREOTIDE ACETATE 500 MCG in SODIUM CHLORIDE 0.9% 250ML 250 ML IV SCH ×2 (02:17→17:16)
[2019-12-11] MEDS: SUCRALFATE 1 GM/10 ML SUSP NG SCH ×4 (02:17→18:46)
[2019-12-11] MEDS: SALIVA SUBSTITUTE 45 ML LIQD MM SCH ×6 (04:40→23:52)
[2019-12-11] MEDS: METOPROLOL TARTRATE INJ 1 MG/ML VIAL IV SCH ×4 (04:40→20:46)
[2019-12-11 04:49] LABS: BASOPHILS # (AUTO) 0.1 (0.0-0.1); BASOPHILS % 0.5 % (0.0-1.0); EOSINOPHILS # (AUTO) 0.1 (0.0-0.4); EOSINOPHILS % 0.7 % (0.0-6.0); HEMATOCRIT 29.6 % (38.2-49.6); HEMOGLOBIN 9.3 g/dL (14.0-18.0); LYMPHOCYTES # (AUTO) 0.7 (1.0-3.2); LYMPHOCYTES % 4.1 % (18.0-39.1); MEAN CORPUSCULAR HEMOGLOBIN 31.3 pg (28-32); MEAN CORPUSCULAR HGB CONC 31.4 g/dL (31-35); MEAN CORPUSCULAR VOLUME 99.7 fL (81-99); MONOCYTES # (AUTO) 1.2 (0.2-0.8); NEUTROPHILS # (AUTO) 15.4 (2.1-6.9); PLATELET COUNT 98 x10e3/uL (140-360); RED BLOOD COUNT 2.97 x10e6/uL (4.3-5.7); RED CELL DISTRIBUTION WIDTH 21.1 % (11.7-14.4)
[2019-12-11 05:06] LABS: INR 2.07; PROTHROMBIN TIME 24.8 seconds (11.9-14.5)
[2019-12-11 05:13] LABS: ALBUMIN 2.3 g/dL (3.5-5.0); ALBUMIN/GLOBULIN RATIO 0.7 (0.8-2.0); ANION GAP 8.6 mmol/L (8-16); CALCIUM 7.8 mg/dL (8.4-10.2); CREATININE, SERUM 1.64 mg/dL (0.72-1.25); POTASSIUM 4.6 mmol/L (3.5-5.1)
[2019-12-11] MEDS ORDERED: PHYTONADIONE 10MG/ML 20 MG in SODIUM CHLORIDE 0.9% 100 ML IV ONE (06:00)
[2019-12-11] MEDS: METRONIDAZOLE 500MG/NS 100ML 100 ML IV SCH ×3 (06:19→21:46)
[2019-12-11] MEDS: ALLOPURINOL 100 MG TAB PO SCH ×2 (08:38→17:21)
[2019-12-11] MEDS: PANTOPRAZOLE 40 MG 10ML VIAL IV SCH ×2 (08:38→20:46)
[2019-12-11] MEDS: SPIRONOLACTONE 25 MG TAB PO SCH (08:38)
[2019-12-11] MEDS: HYDROCODONE/APAP 5MG-325MG TAB PO PRN ×2 (10:05→19:05)
[2019-12-11] MEDS: MIDODRINE HCL 5 MG TABLET PO SCH ×2 (12:00→17:19)
--- NOTE | 2019-12-11 13:41 | NUR ---
Called Dr. Ruvalcaba asked about TPN order, received orders to renew TPN
[2019-12-11] MEDS: SODIUM BICARBONATE 650 MG TAB PO SCH (17:21)
--- NOTE | 2019-12-11 18:39 | Progress Note ---
DATE: 12/11/2019 SUBJECTIVE: Mr. Lemus is feeling better. A week remains weak. There are no new complaints. PHYSICAL EXAMINATION: GENERAL: He is currently alert, oriented, icteric. VITAL SIGNS: Stable, currently afebrile. HEENT: Normocephalic. Pale, anicteric. NECK: Supple. CHEST: Crackles at the bases. HEART: S1, S2. ABDOMEN: Soft, distended. EXTREMITIES: No edema. SKIN: No rash. IMPRESSION AND PLAN: 1. Paroxysmal atrial tachycardia. 2. Colon mass, status post partial colectomy. 3. Thrombocytopenia. 4. Encephalopathy. 5. Liver disease. 6. Alcoholism. 7. Liver cirrhosis. 8. Chronic kidney disease. 9. Anemia. 10. Leukocytosis, probably reactive. He is currently on TPN. The patient is DNR. Peritonitis seems to be better, currently on metronidazole and cefepime. Continue supportive care as ordered. A week down TPN. Increase oral intake. PT/OT output is extremely guarded. MD DEISI Yeboah/MODL /[id number]
[2019-12-11] MEDS: CENTRAL TPN FORMULA 1 BAG IV SCH (20:05)
[2019-12-11] MEDS: CEFEPIME 2 GM/NS 0.9% 100 ML 100 ML IV SCH (20:45)
--- NOTE | 2019-12-11 23:18 | NUR ---
dr Becca Valero called and give an order for Vit K 20 mg IV piggy bag x 1. order carried out.
[2019-12-11] MEDS ORDERED: PHYTONADIONE 10 MG/ML AMP SQ ONE (23:30)
[2019-12-11] MEDS ORDERED: SODIUM CHLORIDE 0.9% 100 ML ONE (23:42)
--- NOTE | 2019-12-11 23:52 | NUR ---
patient just had a large loose dark red bowel movement. clean patient in the bed, he tolerated well. no distress noted, will continue to monitor.
[2019-12-12] VITALS (9 sets, daily range): BP systolic 114–135; BP diastolic 51–67
--- NOTE | 2019-12-12 00:10 | Progress Note ---
DATE: 12/11/2019 Nephrology Progress Note SUBJECTIVE: The patient was doing much better today. His diet has been advanced to full liquid diet. was at bedside. Discussed plan of care with nursing staff. PHYSICAL EXAMINATION: VITAL SIGNS: During my evaluation was temperature 98.8, pulse was 80, respiratory rate is 19, blood pressure 107/55, and pulse ox 97% on room air. GENERAL: No acute distress. Alert and oriented x3. Cooperative on examination. PULMONARY: Clear to auscultation bilaterally. No wheezing, rales, or rhonchi. No crackles appreciated. CARDIOVASCULAR: Positive S1, S2. No murmurs, rubs, or gallops. ABDOMEN: Soft and nondistended tender palpation. Bowel sounds present. MUSCULOSKELETAL: Strength is 5/5 throughout. No evidence of any muscle deficits on examination. No weakness appreciated. NEUROLOGIC: Cranial nerve II through XII grossly intact. No evidence of any neurological deficits on exam. SKIN: Intact. Warm to touch. Good cap refill. PSYCHIATRIC: Normal affect and mood. EXTREMITIES: No edema. Good range of motion throughout. LABORATORY DATA: Labs show white count was 17.6, hemoglobin 9.2, hematocrit 29.6, platelets of 98. Coagulation; PT is 24, PTT is 2.07. Chemistry; sodium 141, potassium 4.7, chloride 123, bicarbonate 14, anion gap of 8.6, BUN 53 and creatinine 1.64, glucose is 167, calcium is 7.8, and magnesium is 1.6. MICROBIOLOGY: Gram stain and final cultures of the ascites fluid were found to be negative. IMPRESSION: 1. Acute kidney injury secondary to acute tubular necrosis from underlying hypotension, also underlying hepatorenal syndrome type 2. 2. Metabolic acidosis secondary to liver cirrhosis. 3. Status post right hemicolectomy with colon mass. 4. Anemia/thrombocytopenia. 5. Moderate protein-calorie malnutrition. 6. Abdominal ascites, status post paracentesis. PLAN: At this time, the patient has good urine output. His labs showed decreasing creatinine. We will continue with oral midodrine for blood pressure support due to hepatorenal syndrome. As for his bicarbonate, I did add bicarbonate tablets. Continue with IV TPN for now until he is able to have better nutrition. He is on full liquid diet. Jiries S Dahu, MD [facility]/GÉNESISL /[id number]
--- NOTE | 2019-12-12 00:25 | Progress Note ---
DATE: 12/11/2019 Cardiology Progress Note SUBJECTIVE: The patient is awake and alert and answers questions appropriately. The patient does not have any complaints at this time. OBJECTIVE: VITAL SIGNS: Blood pressure 106/62, heart rate 76 beats per minute, oxygen saturation is 97% on 2 L per minute nasal cannula and he is afebrile. NECK: There is no increased jugular venous distention. LUNGS: Showed decreased breath sounds in both bases. CARDIOVASCULAR: Regular rate and rhythm. Systolic murmur at the base of the heart that is heard throughout the precordium. ABDOMEN: Distended with ascites. EXTREMITIES: No leg edema. CARDIOVASCULAR MEDICATIONS: Reviewed: 1. Metoprolol. 2. Furosemide IV 20 mg, every 3 hours as needed. 3. Spironolactone 25 mg orally daily. LABORATORY DATA: Reviewed. TELEMETRY: Shows sinus rhythm and no significant arrhythmias in the last 24 hours. ASSESSMENT: 1. Paroxysmal supraventricular tachycardia. 2. Gastrointestinal bleeding and liver cirrhosis. 3. Colon mass, status post partial colectomy. 4. Anemia. 5. Thrombocytopenia. 6. Encephalopathy. 7. Abnormal urinalysis test. PLAN: 1. Continue beta-velma. 2. Monitor recurrence of SVT via telemetry. 3. Anemia. The patient is status post blood transfusion of 2 units packed red blood cells. 4. Protein-calorie malnutrition, receiving TPN. Lillian Plata MD [facility]/MODL /[id number]
[2019-12-12] MEDS: SUCRALFATE 1 GM/10 ML SUSP NG SCH ×4 (00:28→18:00)
[2019-12-12] MEDS: OCTREOTIDE ACETATE 500 MCG in SODIUM CHLORIDE 0.9% 250ML 250 ML IV SCH ×3 (00:40→21:15)
--- NOTE | 2019-12-12 00:45 | NUR ---
Dr Becca Valero made rounding, see pt in the room. and he aware that patient just had a large melena, dark red.
[2019-12-12] MEDS: METOPROLOL TARTRATE INJ 1 MG/ML VIAL IV SCH ×4 (03:04→21:43)
[2019-12-12] MEDS: SALIVA SUBSTITUTE 45 ML LIQD MM SCH ×5 (03:05→20:41)
[2019-12-12] MEDS: MEPERIDINE HCL INJ 25 MG/ML VIAL IV PRN (04:59)
[2019-12-12 05:02] LABS: BILIRUBIN,URINE NEGATIVE (NEGATIVE); CLARITY,URINE CLOUDY (CLEAR); COLOR,URINE AMBER (YELLOW); KETONES,URINE NEGATIVE (NEGATIVE); LEUKOCYTE ESTERASE ,URINE TRACE (NEGATIVE); NITRITE,URINE NEGATIVE (NEGATIVE); PROTEIN,URINE DIPSTICK 1+ (NEGATIVE); URINE UROBILINOGEN 0.2 mg/dL (0.2 - 1)
[2019-12-12 05:03] LABS: BACTERIA,URINE MANY /HPF; EPITHELIAL CELLS,URINE MODERATE /LPF; RBC,URINE >50 /HPF (0-5); WBC,URINE (MAN) >50 /HPF (0-5)
[2019-12-12] MEDS: METRONIDAZOLE 500MG/NS 100ML 100 ML IV SCH ×3 (05:27→22:00)
[2019-12-12 05:45] LABS: BASOPHILS # (AUTO) 0.1 (0.0-0.1); BASOPHILS % 0.4 % (0.0-1.0); EOSINOPHILS # (AUTO) 0.1 (0.0-0.4); EOSINOPHILS % 0.7 % (0.0-6.0); HEMOGLOBIN 8.3 g/dL (14.0-18.0); LYMPHOCYTES # (AUTO) 1.1 (1.0-3.2); LYMPHOCYTES % 5.6 % (18.0-39.1); MEAN CORPUSCULAR HEMOGLOBIN 30.7 pg (28-32); MEAN CORPUSCULAR HGB CONC 30.7 g/dL (31-35); MONOCYTES % 10.5 % (4.4-11.3); NEUTROPHILS # (AUTO) 15.5 (2.1-6.9); NEUTROPHILS % 82.1 % (38.7-80.0); PLATELET COUNT 145 x10e3/uL (140-360); RED CELL DISTRIBUTION WIDTH 21.2 % (11.7-14.4)
[2019-12-12 06:00] LABS: ALBUMIN/GLOBULIN RATIO 0.6 (0.8-2.0); ANION GAP 6.9 mmol/L (8-16); CALCIUM 7.7 mg/dL (8.4-10.2); CREATININE, SERUM 1.67 mg/dL (0.72-1.25); POTASSIUM 4.9 mmol/L (3.5-5.1)
[2019-12-12 06:37] LABS: INR 2.27; PROTHROMBIN TIME 26.7 seconds (11.9-14.5)
--- NOTE | 2019-12-12 07:56 | Diagnostic Imaging Report ---
EXAMINATION: CHEST SINGLE (PORTABLE) COMPARISON: Chest x-ray 12/08/2019 INDICATION: Shortness of breath, weakness ^follow up ^[id number] ^0610 DISCUSSION: Frontal view of the chest obtained at 0635 hours. HEART AND MEDIASTINUM: The cardiomediastinal silhouette is unremarkable. LINES: Enteric tube has been removed. Right PICC line remains in the SVC. LUNGS/PLEURA: New patchy airspace opacities in the lung bases, right more severe than the left. No pleural effusion or pneumothorax. BONES AND SOFT TISSUES: No focal osseous lesion. The soft tissues are normal. IMPRESSION: New bibasilar airspace opacities may be secondary to atelectasis or developing infiltrate in the appropriate clinical setting. Signed by: Dr. Izabella Biggs MD on 12/12/2019 7:53 AM
[2019-12-12] MEDS: MIDODRINE HCL 5 MG TABLET PO SCH ×3 (08:50→16:54)
[2019-12-12] MEDS: SODIUM BICARBONATE 650 MG TAB PO SCH ×2 (08:51→16:54)
[2019-12-12] MEDS: SPIRONOLACTONE 25 MG TAB PO SCH (08:51)
[2019-12-12] MEDS: PANTOPRAZOLE 40 MG 10ML VIAL IV SCH ×2 (08:51→21:35)
[2019-12-12] MEDS: ALLOPURINOL 100 MG TAB PO SCH ×2 (08:52→16:54)
[2019-12-12] MEDS ORDERED: SODIUM CHLORIDE 0.9% 250ML 250 ML ONE ×2 (10:10→19:58)
[2019-12-12] MEDS: HYDROCODONE/APAP 5MG-325MG TAB PO PRN ×2 (11:00→20:15)
--- NOTE | 2019-12-12 14:00 | NUR ---
HYSICAL EXAMINATION: VITAL SIGNS: During my evaluation was temperature 98.8, pulse was 80, respiratory rate is 19, blood pressure 107/55, and pulse ox 97% on room air. GENERAL: No acute distress. Alert and oriented x3. Cooperative on examination. PULMONARY: Clear to auscultation bilaterally. No wheezing, rales, or rhonchi. No crackles appreciated. CARDIOVASCULAR: Positive S1, S2. No murmurs, rubs, or gallops. ABDOMEN: Soft and nondistended tender palpation. Bowel sounds present. MUSCULOSKELETAL: Strength is 5/5 throughout. No evidence of any muscle deficits on examination. No weakness appreciated. NEUROLOGIC: Cranial nerve II through XII grossly intact. No evidence of any neurological deficits on exam. SKIN: Intact. Warm to touch. Good cap refill. PSYCHIATRIC: Normal affect and mood. EXTREMITIES: No edema. Good range of motion throughout. LABORATORY DATA: Labs show white count was 17.6, hemoglobin 9.2, hematocrit 29.6, platelets of 98. Coagulation; PT is 24, PTT is 2.07. Chemistry; sodium 141, potassium 4.7, chloride 123, bicarbonate 14, anion gap of 8.6, BUN 53 and creatinine 1.64, glucose is 167, calcium is 7.8, and magnesium is 1.6. MICROBIOLOGY: Gram stain and final cultures of the ascites fluid were found to be negative. [id number]
--- NOTE | 2019-12-12 16:03 | Progress Note ---
DATE: 12/12/2019 SUBJECTIVE: Mr. Lemus remains weak. No new complaints. The patient with generalized edema. His prognosis remains very guarded. He is better but still weak. PHYSICAL EXAMINATION: GENERAL: He is currently alert, oriented, does not seem in acute distress. VITAL SIGNS: Stable, afebrile. HEENT: He is not icteric. NECK: Supple. CHEST: Clear bilaterally. HEART: S1, S2. No S3, S4, or murmur. ABDOMEN: Soft. EXTREMITIES: +2 edema. IMPRESSION: 1. Sepsis and peritonitis better. 2. Liver disease, liver cirrhosis. 3. Acute kidney injury superimposed on chronic kidney disease. 4. Hepatorenal syndrome. 5. Status post right hemicolectomy with colon mass. 6. Alcoholism. 7. From Infectious Disease point of view, the patient seems to be getting slowly better. He is currently on metronidazole and cefepime . We will follow. MD DEISI Yeboah/MODL /[id number]
--- NOTE | 2019-12-12 17:00 | NUR ---
placed call to Dr. John Valero, waiting for call back
--- NOTE | 2019-12-12 17:03 | Progress Note ---
DATE: 12/12/2019 Nephrology Progress Note SUBJECTIVE: The patient is doing relatively okay. Not eating a whole lot. Spoke with the at bedside with nurse present. The patient apparently in the past was on the liver transplant, but he started drinking again now. He is off the liver transplant what he told me. He is in the process of going to LTAC. PHYSICAL EXAMINATION: VITAL SIGNS: Temperature is 98.5, pulse 83, respiratory rate is 20, blood pressure 116/57, and pulse ox 98% on room air. GENERAL: No acute distress. Alert and oriented x3. Cooperative on examination. HEENT: Head; normocephalic, atraumatic. Eyes; pupils are equal, round, and reactive to light bilaterally. Extraocular movements intact bilaterally. Throat; no evidence of erythema or exudates in the posterior pharynx. Has poor dentition. NECK: Supple. Good range of motion. PULMONARY: Clear to auscultation bilaterally. No wheezing, no rales, no rhonchi, no crackles appreciated. CARDIOVASCULAR: Positive S1 and S2. No murmurs, rubs, or gallops appreciated. ABDOMEN: Soft, nondistended, and nontender to palpation. Bowel sounds present. MUSCULOSKELETAL: Strength is 5/5 throughout. No evidence of any muscle deficits on examination. SKIN: Intact, warm to touch. Good cap refill. PSYCHIATRIC: Normal affect and mood. EXTREMITIES: No edema. Good range of motion throughout. LABORATORY DATA: White count 18, hemoglobin 8.3, hematocrit 27, and platelets of 145. Chemistry; sodium 139, potassium 4.9, chloride 123, bicarb 14, anion gap of 6.9, BUN is 60, creatinine 1.67, glucose is 132, calcium is 7.7, total bilirubin is 2.4. LFTs within normal range. MICROBIOLOGY: All cultures so far no growth today. IMAGING STUDIES: Chest x-ray performed this morning shows new bibasilar airspace opacity may be secondary to atelectasis, developing infiltrate in the appropriate clinical setting. IMPRESSION: 1. Acute kidney injury, secondary to likely ATN from hypotension and hepatorenal syndrome type 2. 2. Metabolic acidosis, secondary to liver cirrhosis. 3. Status post right hemicolectomy with colon mass. 4. Anemia/thrombocytopenia. 5. Moderate protein-calorie malnutrition. 6. Abdominal study, status post paracentesis. PLAN: At this time from a renal standpoint, his creatinine is at the plateaued and stable. Electrolytes are stable. Bicarbonate tabs will continue with bicarb of 14. He continues to be on oral midodrine, which is very important to support his blood pressure. He is on IV TPN, which we will go ahead and continue that he is not eating a whole lot. He will be pending LTAC. MD ALEXI Christian/MODL /[id number]
--- NOTE | 2019-12-12 17:27 | NUR ---
Dr. John Valero returned call made aware patient's has had 3 bowel movements tarry mixed with burgundy blood, informed Dr. Valero patient was given FFP as ordered this morning, received orders to do a stat PT/INR/PTT, CBC, and to give 1 more unite of Jumbo FFP telephone order read back.
[2019-12-12 18:06] LABS: BASOPHILS # (AUTO) 0.1 (0.0-0.1); BASOPHILS % 0.3 % (0.0-1.0); EOSINOPHILS # (AUTO) 0.1 (0.0-0.4); EOSINOPHILS % 0.5 % (0.0-6.0); HEMATOCRIT 25.1 % (38.2-49.6); HEMOGLOBIN 7.7 g/dL (14.0-18.0); LYMPHOCYTES # (AUTO) 0.8 (1.0-3.2); LYMPHOCYTES % 4.4 % (18.0-39.1); MEAN CORPUSCULAR HEMOGLOBIN 30.7 pg (28-32); MEAN CORPUSCULAR HGB CONC 30.7 g/dL (31-35); MONOCYTES # (AUTO) 2.1 (0.2-0.8); MONOCYTES % 11.1 % (4.4-11.3); NEUTROPHILS # (AUTO) 15.3 (2.1-6.9); NEUTROPHILS % 82.7 % (38.7-80.0); PLATELET COUNT 145 x10e3/uL (140-360); RED BLOOD COUNT 2.51 x10e6/uL (4.3-5.7); RED CELL DISTRIBUTION WIDTH 21.2 % (11.7-14.4)
[2019-12-12 18:16] LABS: INR 2.02; PROTHROMBIN TIME 24.3 seconds (11.9-14.5)
[2019-12-12] MEDS: CEFEPIME 2 GM/NS 0.9% 100 ML 100 ML IV SCH (20:44)
[2019-12-12] MEDS: CENTRAL TPN FORMULA 1 BAG IV SCH (22:12)
--- NOTE | 2019-12-12 22:23 | Progress Note ---
DATE: 12/12/2019 Cardiology Progress Note SUBJECTIVE: The patient is awake and alert, and answers questions appropriately. The main change today is the patient has been having melanotic stools. OBJECTIVE: VITAL SIGNS: Blood pressure is 121/84 mmHg with heart rate of 88 beats per minute. He is afebrile and his oxygen saturation is 98% on 2 L per minute nasal cannula. NECK: Shows no increased jugular venous distention. LUNGS: Decreased breath sounds posteriorly. CARDIOVASCULAR: Regular rate. Systolic murmur at the base of the heart that is heard throughout the precordium. ABDOMEN: Distended with ascites. EXTREMITIES: No leg edema. CARDIOVASCULAR MEDICATIONS: Reviewed: TELEMETRY: Shows sinus rhythm and no significant arrhythmias in the last 24 hours. ASSESSMENT: 1. Paroxysmal supraventricular tachycardia, stable. 2. Gastrointestinal bleeding and liver cirrhosis, now with melanotic stools. 3. Colon mass, status post partial colectomy. 4. Anemia. The patient has received 2 units of packed red blood cells in the last 2 days. Lillian Plata MD [facility]/MODL /[id number]
[2019-12-13] VITALS (7 sets, daily range): BP systolic 104–133; BP diastolic 51–65
[2019-12-13] MEDS: SALIVA SUBSTITUTE 45 ML LIQD MM SCH ×5 (00:12→15:03)
[2019-12-13] MEDS: SUCRALFATE 1 GM/10 ML SUSP NG SCH ×4 (03:07→17:43)
[2019-12-13] MEDS: METOPROLOL TARTRATE INJ 1 MG/ML VIAL IV SCH ×3 (03:13→15:00)
[2019-12-13 06:20] LABS: BASOPHILS % 0.3 % (0.0-1.0); EOSINOPHILS # (AUTO) 0.1 (0.0-0.4); EOSINOPHILS % 0.9 % (0.0-6.0); HEMATOCRIT 22.6 % (38.2-49.6); LYMPHOCYTES # (AUTO) 0.7 (1.0-3.2); MEAN CORPUSCULAR HEMOGLOBIN 31.5 pg (28-32); MEAN CORPUSCULAR VOLUME 101.8 fL (81-99); MONOCYTES # (AUTO) 1.3 (0.2-0.8); MONOCYTES % 10.8 % (4.4-11.3); NEUTROPHILS # (AUTO) 9.5 (2.1-6.9); NEUTROPHILS % 81.3 % (38.7-80.0); PLATELET COUNT 120 x10e3/uL (140-360); RED BLOOD COUNT 2.22 x10e6/uL (4.3-5.7); RED CELL DISTRIBUTION WIDTH 21.3 % (11.7-14.4)
[2019-12-13] MEDS: METRONIDAZOLE 500MG/NS 100ML 100 ML IV SCH ×2 (06:44→14:07)
[2019-12-13 06:45] LABS: ALBUMIN 2.1 g/dL (3.5-5.0); ALBUMIN/GLOBULIN RATIO 0.6 (0.8-2.0); ANION GAP 7.8 mmol/L (8-16); CREATININE, SERUM 1.57 mg/dL (0.72-1.25); POTASSIUM 4.8 mmol/L (3.5-5.1)
--- NOTE | 2019-12-13 07:00 | NUR ---
BEDSIDE SHIFT REPORT FROM LEAD SHIPPER, CARLOS JIANG. PT DENIES NEEDS AT THIS TIME.
--- NOTE | 2019-12-13 07:10 | NUR ---
patient condition through the shift was stable patient endorsed to next shift for continuity of care.
[2019-12-13] MEDS: OCTREOTIDE ACETATE 500 MCG in SODIUM CHLORIDE 0.9% 250ML 250 ML IV SCH ×2 (07:29→14:00)
[2019-12-13] MEDS: SODIUM BICARBONATE 650 MG TAB PO SCH ×3 (08:14→17:42)
[2019-12-13] MEDS ORDERED: SODIUM CHLORIDE 0.9% 250ML 250 ML IV ONE (08:45)
[2019-12-13] MEDS: ALLOPURINOL 100 MG TAB PO SCH ×2 (08:55→17:43)
[2019-12-13] MEDS: PANTOPRAZOLE 40 MG 10ML VIAL IV SCH (08:55)
[2019-12-13] MEDS: SPIRONOLACTONE 25 MG TAB PO SCH (08:55)
[2019-12-13] MEDS: MIDODRINE HCL 5 MG TABLET PO SCH ×3 (08:55→16:42)
--- NOTE | 2019-12-13 08:57 | Diagnostic Imaging Report ---
Abdominal Ultrasound Limited Clinical Diagnosis: Ascites. GI bleed. Cirrhosis. Request for diagnostic paracentesis. The ultrasound was done to assess for the presence of ascites. Comparison: None Technique: Multiple transaxial and longitudinal images were obtained through the abdomen with real time ultrasonography. A low frequency curvilinear transducer was utilized. Multiple images were submitted for interpretation. Report: There is presence of small amounts of loculated septated ascites with no internal echoes in the right upper quadrant and also in the left and right lower quadrants. Impression: Scant loculated septated ascites as described above. A diagnostic paracentesis can be safely performed. Signed by: Rico Oro MD on 12/13/2019 8:53 AM
--- NOTE | 2019-12-13 10:35 | Progress Note ---
DATE: 12/13/2019 SUBJECTIVE: The patient is seen and evaluated. Available labs and notes reviewed. Discussed with the . Discussed with the patient. Discussed with the nurse and nurse tech. Nurse states that the patient ate really well this morning almost all his breakfast. Discussed with the nurse, who said the patient is going for paracentesis and to get 2 units of packed red blood cells. The states the patient is more alert today. Overall, no nausea, vomiting, fever, chills, chest pain, or shortness of breath. OBJECTIVE: VITAL SIGNS: Temperature is 97.9, pulse 93, respirations 19, blood pressure 104/51. GENERAL: Alert and oriented, comfortable in bed. CV: S1, S2. CHEST: Equal expansion. Decreased breath sounds. No acute distress. ABDOMEN: Distended that with dehisced wound with some tissue pushing against the dehisced area secondary to distended abdomen, some early signs of small areas of maceration distally. HEENT: Moist. No pallor. No JVD. EXTREMITIES: No edema. The patient has a dark water black stool. MEDICATIONS: Medication list reviewed. From ID point of view, the patient is on Flagyl, cefepime. The patient is also on TPN. LABORATORY STUDIES: White count 11.64, significant improvement from 18.47 yesterday, hemoglobin is 7, platelet is 120, sodium 140, potassium 4.8, creatinine 1.57. SEROLOGY: No new serology. MICROBIOLOGY: Urine culture is pending. Ascites culture from 12/08 is negative. IMAGING: Abdominal ultrasound showed loculated septated ascites. ASSESSMENT AND PLAN: 1. Sepsis/peritonitis, improved. 2. Hepatic disease. 3. Hepatic cirrhosis. 4. Acute kidney injuries on chronic kidney disease. 5. Hepatorenal syndrome. 6. Status post right hemicolectomy secondary to colonic mass. 7. Alcoholism. 8. Septated ascites. Paracentesis ordered by GI, the patient remains on Flagyl, cefepime. Overall guarded prognosis. The patient is DNR. Plan is for SNF from here. Discussed with Dr. Carter. Discussed with staff. Please refer to chart for more information. Dictated by Twin Wagner PA-C (Al) Mode Carter MD /GÉNESISL /[id number]
[2019-12-13] MEDS: MEPERIDINE HCL INJ 25 MG/ML VIAL IV PRN (11:56)
--- NOTE | 2019-12-13 12:00 | NUR ---
PT OFF THE FLOOR TO RADIOLOGY.
--- NOTE | 2019-12-13 12:55 | NUR ---
PT BACK TO ROOM. VITALS WNL. PT DENIES FURTHER NEEDS AT THIS TIME.
--- NOTE | 2019-12-13 13:57 | Diagnostic Imaging Report ---
US Guided Paracentesis. History: Postop ascites. Request for diagnostic paracentesis. Laborer Gold Leaf: Rico Oro MD. Loader Engineer: None. Modality: Ultrasonography Sedation: None. Anesthesia: Lidocaine local infiltration. Estimated blood loss: < 5 cc. Technique: Informed written consent was obtained. Discussion of risks, benefits, and alternatives were made with the patient. The patient expressed understanding and agreed to proceed. A universal timeout was performed prior to starting the procedure. Maximal sterile precautions were utilized. The procedure room personnel used personal protective equipment. The operators additionally used sterile surgical gloves. A preliminary ultrasonography was performed to assess the target and determine a safe access site. It showed septated loculated ascites in the right and left upper quadrants. Pertinent ultrasound images were stored to the PACS for documentation. The access site was selected and sterilely prepped and draped. Local anesthesia was administered. A dermatotomy was performed. A catheter over the needle system was advanced into the peritoneal cavity. Straw colored fluid was aspirated and the plastic catheter advanced into the peritoneum. The catheter was then connected to a fluid recovery system. Approximately 25 cc of the fluid recovered. At the end of the procedure, the catheter was withdrawn and an aseptic dressing applied. The patient tolerated the procedure well. After uneventful recovery recovery, the patient was discharged from the department in stable condition. The total amount of fluid recovered is given below. Complications: None immediate. Specimen: Sent to the lab. Impression: Successful ultrasound-guided diagnostic paracentesis using a right upper quadrant access with recovery of 25 cc of fluid as described above. Thank you for the opportunity to assist in the care of your patient. Signed by: Rico Oro MD on 12/13/2019 1:54 PM
--- NOTE | 2019-12-13 14:37 | Progress Note ---
DATE: 12/13/2019 SUBJECTIVE: The patient went to Interventional Radiology for ultrasound-guided paracentesis today. He is more responsive. He is not having fevers. PHYSICAL EXAMINATION: VITAL SIGNS: The blood pressure is 133/58 and saturation is 97%. Pulse is 100. HEENT: Shows no facial swelling or erythema. CARDIAC: Reveals regular rate and rhythm with normal S1 and S2. LUNGS: Auscultation of lungs reveals clear breath sounds bilaterally. There is no wheezing. ABDOMEN: Distended. There is no rebound or guarding. EXTREMITIES: Shows no leg edema or calf tenderness. There is no cyanosis or clubbing. SKIN: Shows no rashes. NEUROLOGICAL: Shows no focal abnormalities. LABORATORY DATA: White blood cell count is 11.64 and the hemoglobin is 7. Platelet count is 120. BUN to creatinine ratio is 60 to 1.57. Carbon dioxide is 14. Total bilirubin is 1.8. Albumin is 2.1. IMPRESSION: 1. Cirrhosis and portal hypertension. 2. Anemia secondary to acute blood loss. 3. Acute kidney injury. 4. Recent hemicolectomy with colonic mass. 5. Anemia. 6. Moderate protein-calorie malnutrition. PLAN: 1. Continue antibiotics. 2. Monitor blood counts and transfuse as needed. 3. Continue current regimen for cirrhosis. 4. Possible transfer to LTAC. Arun Dukes MD [facility]/MODL /[id number]
[2019-12-13 14:45] LABS: BODY FLUID APPEARANCE CLOUDY; BODY FLUID COLOR RED; BODY FLUID TYPE PERITONEAL
--- NOTE | 2019-12-13 14:47 | NUR ---
INITIAL WOUND CARE NURSE CONSULTATION. 59 YEAR OLD MALE ADMITTED TO [facility] WITH DX OF GI BLEED, CIRRHOSIS AND COLON MASS. S/P RIGHT COLECTOMY ON 11/29/2019 & SECOND-LOOK LAPAROTOMY, REMOVAL OF PACKING . HEAD TO TOE SKIN ASSESSMENT PERFORMED TODAY. PT PRESENTS WITH A 2X2 CM STAGE I TO SACRUM, NON-APPROXIMATED ABDOMINAL INCISION WITH 24 OUMAR PRESENT WITH DEHISCENCE 8X6.5CM TO DISTAL ASPECT OF INCISION LINE. ABDOMEN IS FIRM, DISTENDED & ASCITES. X 2 LAPAROSCOPIC INCISIONS NOTED TO LUQ & LLQ. LARGE AMOUNT OF SEROUS DRAINAGE IS NOTED. DR. HERNANDEZ AT BEDSIDE STATES THAT PT WILL HAVE PARACENTESIS SOMETIME TODAY. DRY DRESSING APPLIED TODAY, DRAINAGE SYSTEM TO BE APPLIED TOMORROW BY WOUND CARE NURSE. LABS: WBC: 11.64 ALB: 2.1 MEDS: CEFEPIME & METRONIDAZOLE IV. RECOMMENDATIONS: APPLY VENELEX TO SACRUM AND COVER WITH ALLEVYN FOAM, CHANGE DRESSING DAILY. DRY DRESSING TO ABDOMINAL INCISION, CHANGE BID AND PRN. DRAINAGE SYSTEM TO BE APPLIED BY WOUND CARE NURSE TOMORROW. REPOSITION PT EVERY 2 HOURS AND PRN. PROVIDE PT BILATERAL HEEL PROTECTORS AND PILLOW SUSPENSIONS. CONTINUE WITH ALTERNATING LOW AIR LOSS MATTRESS. THANKS FOR THIS CONSULTATION. Addendum: 12/13/19 at 1529 by Radha Kilpatrick RN Amended: Links added.
[2019-12-13 14:48] LABS: RBC,BODY FLUID 28820 cells/uL; WBC,BODY FLUID 7755 cells/uL
[2019-12-13 14:56] LABS: LYMPHOCYTES,BODY FLUID 15 %; MONO/MACROPHG,BODY FLUID 22 %; NEUTROPHILS,BODY FLUID 63 %
--- NOTE | 2019-12-13 15:41 | NUR ---
LONG-TERM ACUTE CARE DISCHARGE INFORMATION PATIENT HAS BEEN ACCEPTED TO: NAME: [facility] ADDRESS: [address] [place] [id number] ACCEPTING SUGAR CHIPPER MACHINE OPERATOR: FRANDY MOSES, IMAGING SPECIALIST ACCEPTING MD: NIKKO LANCASTER ROOM: 239 NURSE CALL REPORT TO: [phone] THE FOLLOWING DOCUMENTS MUST ACCOMPANY PATIENT FOR TRANSFER: COPIED CHART: CM MOT INFO RECEIVED FROM: JAUN Walker / [facility] ORDER/RECONCILED MED LIST: FUENTES / BEDSIDE NURSE [id number] DNR: YES
--- NOTE | 2019-12-13 17:34 | NUR ---
Nutrition Intervention Note RD Recommendation(s) for Physician: -Recommend weaning TPN when medically appropriate and encouraging PO intake -Recommend advancing towards GI soft diet with Ensure Enlive BID Plan of Care: RD following, monitoring for tolerance and adequacy Nutrition reason for involvement: follow up RD Assessment 12/12: Follow up. Pt was at a procedure at time of visit. Pt is scheduled to have a paracentesis today. Pt is now on a full liquid diet and it is noted that pt ate well this morning and consumed all of his full liquid breakfast. No N/V. Recommend advancing diet as medically appropriate. Will continue to monitor. 12/09: Follow up. RN reports pt remains confused and had pulled out his NG tube. Pt was started on a clear liquid diet which RN stated pt is tolerating. Pt remains on TPN. Will continue to monitor. 12/07: Follow up. Per RN, pt is confused and still has NG tube. 800 mL output recorded this morning. Pt was started on TPN. Recommendations provided. Will continue to monitor. 12/03: Follow up. Pt still has NGT with 500 mL drainage recorded last night. Recommend initiating parenteral nutrition since pt has been NPO/liquid diet since admission (11 days). Will continue to monitor. 12/01: Follow up. Pt was sleeping during my visit. Pt was getting frozen plasma through IV. NGT to suction, with 100ml drainage since this AM. Currently NPO day 3. No BM or flatus recorded since 11/29. Recommend PN since pt has been NPO or on liquid diet since admission. Will continue to follow. 11/28: Follow up. Pt discussed during MDR. Pt out of room at time of visit, in OR for R colectomy 2/2 colonic tumor. Pt NPO or on liquid diet since admit, if unable to advance diet post operatively recommend PN for adequate nutrition. Chart reviewed. Will continue to monitor. (11/24/19) Pt is a 59 year old male admitted with GI bleed, cirrhosis, colon mass, and esophageal varices. Pt reports he is tolerating clear liquid diet. Prior to admission, pt reports eating 50% of meals for the past week. Pt stated he usually weighs 188 lbs, but was unsure of when he last weighed this amount. Pt currently has a weight of 177 lbs in chart. No N/V noted. Offered pt a nutrition supplement, but he declined at this time. Will continue to monitor Principal Problems/Diagnoses: GI bleed, cirrhosis, colon mass, and esophageal varices PMH: asthma, liver cirrhosis, gout GI: tender, ascitic abdomen, last recorded BM 12/12 Skin: stage 1 sacrum pressure ulcer per wound care note on 12/12 Labs: 12/12: Na 140, BUN 60, Cr 1.57, Glu 134, Ca 8.0, Total bili 1.8 12/09: Na 143, K 4.1, BUN 56, Cr 1.72, Glu 134, Ca 7.6 12/07: Na 141, BUN 56, Cr 1.80, Glu 133, Ca 7.7 12/03: Na 145, K 4.0, BUN 30, Cr 1.42, Glu 105 12/01 Cl 113 H, BUN 28 H, Creatinine 1.8 H, Glucose 128 H, Ca 8.0 L 11/28: Na 141, K 4.7, BUN 11, Cr 0.88, Gluc 95 (11/23) Na 138, BUN 40, Cr 1.41, Glu 136, Ca 7.5, AST 67 Meds: carafate, Demerol, spironolactone, protonix, octeotride, lactulose, lasix, metoprolol, zofran Ht: 73 inches Wt: 177 lbs (pt has not been weighed since 11/29) BMI: 23.4 kg/m2 IBW: 184 lbs Malnutrition Evaluation (11/24/19) The patient does not meet criteria for a specified degree of malnutrition at this time. Will re-evaluate at follow-up as appropriate. Nutrition Prescription (Diet Order): full liquids, TPN @ 85 mL/hr and 25 gm lipids 3x/week (provides 1544 kcal and 102 g protein) Estimated Nutritional Needs: 9419-0279 calories/day (25-35 kcal/kg CBW) 80-120 g protein/day (1-1.5 g pro/kg CBW) Diet Adequacy: Not meeting calorie needs, meeting protein needs Tolerance: tolerating clear liquid diet Diet Education Needs Assessment: Diet education not indicated. Nutrition Care Level: high Nutrition Diagnosis: Inadequate energy intake related to decreased ability to consume sufficient energy as evidenced by need for alternative means of nutrition. Goal: Patient will meet 75-100% of estimated needs by follow up Progress: progressing Interventions: -fiber-modified diet, Commercial beverage Monitoring/Evaluation: Total energy intake, Total protein intake, Formula/Solution, modified diet, Liquid supplement, Weight change Signed: Niesha Posada RD, LD
--- NOTE | 2019-12-13 19:00 | NUR ---
Received patient stable on blood transfusion, no complaints raised, awaiting discharge to [place].
--- NOTE | 2019-12-13 20:40 | NUR ---
PATIENT DISCHARGED FROM THE UNIT, VITALS STABLE
--- NOTE | 2019-12-13 20:59 | Progress Note ---
DATE: 12/13/2019 Cardiology Progress Note SUBJECTIVE: Mr. Lemus denies any chest discomfort or shortness of breath. He is having tarry black stools today. OBJECTIVE: VITAL SIGNS: Temperature 97.9, heart rate 92, blood pressure 104/51, respiratory rate 19, and O2 saturation 98%. GENERAL: In no acute distress. Alert. NECK: No JVD. CHEST: Clear to auscultation. CARDIOVASCULAR: Regular rate and rhythm. Normal S1 and S2. No S3 or S4, in sinus rhythm on telemetry. ABDOMEN: Distended with ascites and dressings in place. EXTREMITIES: With trace edema. CARDIOVASCULAR MEDICATIONS: Reviewed. Furosemide 20 mg q.3 hours p.r.n., albumin 25 g x1 completed, midodrine 5 mg t.i.d., spironolactone 25 mg daily, and metoprolol tartrate 5 mg IV q.6 hours. STUDIES: Reviewed. Creatinine 1.5. White blood cells 11, hemoglobin 7, and platelets 120. INR 2.02, PT 24.3, and PTT 51. AST 23, ALT 12, and alkaline phosphatase 68. ASSESSMENT AND PLAN: A 59-year-old man with paroxysmal supraventricular tachycardia, gastrointestinal bleed, anemia, thrombocytopenia, end-stage liver disease with liver cirrhosis, colon cancers, colon mass status post resection. RECOMMEND: 1. Monitor H and H and transfuse as needed PRBCs for hemoglobin less than 7 for active bleeding. 2. GI evaluation. 3. Continue supportive care for hypertension in the setting of ESLD due to distributed physiology. 4. P.r.n. beta-velma as needed for PSVT. Hold if hypotension. MD STACEY Valentino/MODL /[id number]
--- NOTE | 2019-12-13 21:04 | Progress Note ---
DATE: 12/13/2019 Nephrology Progress Note SUBJECTIVE: The patient is doing well today with no complaints. No overnight events. PHYSICAL EXAMINATION: VITAL SIGNS: Temperature 98.7, pulse 93, respiratory rate is 24, blood pressure 120/64, and pulse ox 99% on room air. GENERAL: Not in acute distress. Alert and oriented x3. Cooperative on examination. HEENT: Head; normocephalic, atraumatic. Eyes; pupils are equal, round, and reactive to light bilaterally. Extraocular movements intact bilaterally. Throat; no evidence of erythema or exudates in the posterior pharynx. Has poor dentition. NECK: Supple. Good range of motion. PULMONARY: Clear to auscultation bilaterally. No wheezing, no rales, no rhonchi, no crackles appreciated. CARDIOVASCULAR: Positive S1 and S2. No murmurs, rubs, or gallops appreciated. ABDOMEN: Soft, nondistended, and nontender to palpation. Bowel sounds present. MUSCULOSKELETAL: Strength is 5/5 throughout. NEUROLOGIC: No evidence of any neurological deficits. SKIN: Intact. Warm to touch. Good cap refill. PSYCHIATRIC: Normal affect and mood. EXTREMITIES: No edema. Good range of motion throughout. LABORATORY DATA: Show white count 11.6, hemoglobin 7, hematocrit is 23, platelets of 120. Chemistry; sodium 140, potassium 4.8, chloride 123, bicarb 14 anion gap is 7.8, BUN is 16, creatinine 1.57, calcium is 8. IMPRESSION: 1. Acute kidney injury secondary to acute tubular necrosis, hypertension, hepatorenal syndrome type 2. 2. Metabolic acidosis secondary to liver cirrhosis. 3. Status post right hemicolectomy with colon mass. 4. Anemia/thrombocytopenia. 5. Moderate protein-calorie malnutrition. 6. Abdominal ascites, status post paracentesis. PLAN: At this time, from a Renal standpoint, his renal function is flat. His bicarbonate is low secondary to liver cirrhosis. We will continue with oral midodrine. We increased the sodium bicarbonate tabs last night. We will continue to monitor that very closely. Continue with IV TPN for now, pending LTAC. MD ALEXI Christian/MODL /[id number]
[2019-12-14] MEDS ORDERED: BALSAM PERU/CASTOR OIL 60 GM OINT...G. TP SCH (09:00)
--- NOTE | 2019-12-14 23:44 | Discharge Summary ---
ADMISSION DIAGNOSES: 1. Anemia of chronic disease, secondary to cirrhosis. 2. Gout. 3. Acute kidney injury. 4. Transaminitis. 5. Thrombocytopenia. 6. Colon mass. DISCHARGE DIAGNOSES: 1. Anemia of chronic disease, secondary to cirrhosis. 2. Gout. 3. Acute kidney injury. 4. Transaminitis. 5. Thrombocytopenia. 6. Colon mass. 7. Hepatorenal syndrome, secondary to cirrhosis. 8. Adenocarcinoma of the colon. 9. History of asthma, cirrhosis, gout, seasonal allergies. SURGICAL HISTORY: 1. Tonsillectomy. 2. L4-L5 laminectomy. FAMILY HISTORY: Noncontributory. SOCIAL HISTORY: The patient admits to drinking vodka daily. His last drink was on Friday before admission. HOSPITAL COURSE: A 59-year-old male, admits from Dr. Salinas's office due to hemoglobin of 5.2 drawn on 11/22/2019. On admission, his hemoglobin was 4.9. The patient admits to constant black stool since discharge on 11/12/2019, but denies diarrhea and bright red blood per rectum. He admits to continue drinking. On admission, the patient was started on Protonix and octreotide drip. He was given 3 units of PRBCs. He was started on home medicines for gout and cirrhosis. GI and Surgery were consulted. The patient's stool for blood was positive. The patient had ultrasound of the abdomen, which showed hepatomegaly and hepatic steatosis. Mildly nodular contour suggestive of early cirrhosis. The patient was taken for right colectomy and then taken back to the OR on 11/30/2019 for 2nd laparotomy and removal of packing. The patient's known colon mass was sent for pathology. After the procedure, the patient's GFR dropped to 12. Nephrology was consulted. Renal ultrasound showed no hydronephrosis or renal calculi. After the surgery, NG tube was placed and took an extended period of time for it to be removed. On 12/06, the patient's WBC went up, so ID was consulted. CT of the abdomen and pelvis was done, which showed recent right hemicolectomy, multiple loops of distended small bowel, trace pleural effusions. Per ID recommendation, the infection is likely intraabdominal. The patient was started 2 IV antibiotics. Blood cultures were negative. Urine culture negative and ascitic fluid was negative. The patient on 06/18, had an ultrasound-guided paracentesis due to leaking of ascites fluid from the surgical wound. IR was able to pull out 700 mL of clear fluid. During hospitalization, the patient received a total of 12 PRBCs, 4 plasma, and 2 platelets. The patient will transfer to [place] for long-term care. He is in need of close hemoglobin monitoring, physical therapy, advancement of diet, IV antibiotics. The patient will follow up with Dr. Baez at [place]. The patient's is aware of the situation and understand how sick her is. At the time of discharge, vital signs stable, the patient is afebrile. Prior to discharge, the patient's diuretics were increased per Nephrology recommendation. Dictated by Tonya Navarrete NP MD [facility]/MODL /[id number]
== END 2019-12-13 20:40 | DRG 329 ==
LOC: ER 14:07 → ERHOLD 14:56 → IMCU 21:22 → ICU 11-29 16:51 → IMCU 11-30 14:26 → MED/SURG 12-03 17:52 → IMCU 12-03 18:02
PROVIDERS: ADMIT Internal Medicine; ATTEND Internal Medicine
PROC: 02HV33Z Insertion of Infusion Device into Superior Vena Cava, Percutaneous Approach (ICD-10-PCS; 2019-11-23)
PROC: 30243N1 Transfusion of Nonautologous Red Blood Cells into Central Vein, Percutaneous Approach (ICD-10-PCS; 2019-11-23)
PROC: 30243R1 Transfusion of Nonautologous Platelets into Central Vein, Percutaneous Approach (ICD-10-PCS; 2019-11-24)
PROC: 30243K1 Transfusion of Nonautologous Frozen Plasma into Central Vein, Percutaneous Approach (ICD-10-PCS; 2019-11-29)
PROC: 0DTF0ZZ Resection of Right Large Intestine, Open Approach (ICD-10-PCS; principal; 2019-11-29 11:00)
PROC: 0WJG0ZZ Inspection of Peritoneal Cavity, Open Approach (ICD-10-PCS; 2019-11-30)
PROC: 0W9G3ZZ Drainage of Peritoneal Cavity, Percutaneous Approach (ICD-10-PCS; 2019-12-09)
PROC: 0W9G3ZZ Drainage of Peritoneal Cavity, Percutaneous Approach (ICD-10-PCS; 2019-12-13)
DX: C18.9 Malignant neoplasm of colon, unspecified (principal); N17.0 Acute kidney failure with tubular necrosis; K65.0 Generalized (acute) peritonitis; K76.6 Portal hypertension; D62 Acute posthemorrhagic anemia; S37.39XA Other injury of urethra, initial encounter; K91.840 Postprocedural hemorrhage of a digestive system organ or structure following a digestive system procedure; D68.9 Coagulation defect, unspecified; I47.1 Supraventricular tachycardia; E44.0 Moderate protein-calorie malnutrition; T81.44XA Sepsis following a procedure, initial encounter; N13.30 Unspecified hydronephrosis; E87.2 Acidosis; K70.31 Alcoholic cirrhosis of liver with ascites; K72.90 Hepatic failure, unspecified without coma; J45.909 Unspecified asthma, uncomplicated; M10.9 Gout, unspecified; J30.2 Other seasonal allergic rhinitis; D63.8 Anemia in other chronic diseases classified elsewhere; N20.9 Urinary calculus, unspecified; N50.0 Atrophy of testis; D63.0 Anemia in neoplastic disease; Z11.59 Encounter for screening for other viral diseases; D69.59 Other secondary thrombocytopenia; Z68.23 Body mass index [BMI] 23.0-23.9, adult; I12.9 Hypertensive chronic kidney disease with stage 1 through stage 4 chronic kidney disease, or unspecified chronic kidney disease; N18.9 Chronic kidney disease, unspecified; E83.41 Hypermagnesemia; F10.20 Alcohol dependence, uncomplicated
CPT/HCPCS: 36415; 36569; 49083; 71045; 74018; 74176; 74470; 76700; 76705; 76770; 80048; 80053; 81001; 81015; 82140; 82270; 82550; 82553; 82570; 82607; 82728; 82746; 82948; 83540; 83605; 83735; 84100; 84300; 84466; 84484; 85025; 85045; 85610; 85730; 86850; 86900; 86920; 87040; 87070; 87086; 87205; 87635; 88112; 88305; 88309; 88342; 89051; 93005; 93306; 97139; 99251; 99284; C1729; J0153; J0690; J0694; J1100; J1170; J1940; J2001; J2175; J2353; J2354; J2370; J2405; J2765; J3010; J3430; J7040; J7050; J7070; J7120; J7121; P9016; P9017; P9034; P9047